=== PATIENT | male | born 1970 | race Caucasian/White ===

== ENCOUNTER 2017-10-22 02:28 | Emergency (ER) | payer MEDICAID ==
[~2017-10-22] VITALS: Ht 175.3 cm; Wt 75.0 kg
[~2017-10-22 02:28] MED LIST: ALPR-624 PO; FLUO20CA39 PO; HYDR-3965 PO; LANTUS SUBCUT; LISI40TA4 PO; TRAZ-143 PO
[2017-10-22] MEDS ORDERED: morphine 2 MG/ML inj. syringe IV ONE (02:35)
[2017-10-22] MEDS ORDERED: ondansetron/PF 4mg/2ml inj IV ONE (02:35)
[2017-10-22] MEDS ORDERED: HYDROCODONE (02:37)
[2017-10-22] MEDS ORDERED: [UNRECOGNIZED DRUG - OTHER] (02:37)
[2017-10-22] MEDS ORDERED: [UNRECOGNIZED DRUG - SUPPLY] (02:37)
[2017-10-22] MEDS ORDERED: [UNRECOGNIZED DRUG - OTHER] (02:37)
[2017-10-22] MEDS ORDERED: LISINOPRIL 40 MG (02:37)
[2017-10-22] MEDS ORDERED: EASY TOUCH (02:37)
[2017-10-22] MEDS ORDERED: BASAGLAR (02:37)
[2017-10-22] MEDS ORDERED: APAP (02:37)
[2017-10-22] MEDS: nitroGLYCERIN 0.4mg SUBLingual tab SL PRN ×3 (02:45→05:23)
[2017-10-22 02:47] LABS: BASOPHILS # (AUTO) 0.1 X10'3 (0-0.2); BASOPHILS % (AUTO) 1.1 % (0-1); EOSINOPHILS # (AUTO) 0.2 X10'3 (0-0.9); EOSINOPHILS % (AUTO) 2.9 % (0-6); HEMOGLOBIN 13.1 g/dl (14.0-17.9); LYMPHOCYTES # (AUTO) 1.9 X10'3 (1.1-4.8); LYMPHOCYTES % (AUTO) 37.4 % (21-51); MEAN CORPUSCULAR HGB CONC 34.6 % (33.0-36.5); MEAN CORPUSCULAR VOLUME 92.5 FL (78-98); MEAN PLATELET VOLUME 7.9 FL (7.4-10.4); MONOCYTES # (AUTO) 0.4 X10'3 (0-0.9); MONOCYTES % (AUTO) 8.7 % (2-12); NEUTROPHILS # (AUTO) 2.6 X10'3 (1.8-7.7); NEUTROPHILS % (AUTO) 49.9 % (42-75); PLATELET COUNT 143 X10'3 (140-440); RED BLOOD COUNT 4.11 X10'6 (4.70-6.10); WHITE BLOOD COUNT 5.1 X10'3 (4.5-11.0)
[2017-10-22 03:00] LABS: D-DIMER 0.31 MG/L FEU (0-0.50)
[2017-10-22] MEDS ORDERED: normal saline 1000ML IV soln IVB ONE (03:05)
[2017-10-22 03:09] LABS: ALANINE AMINOTRANSFERASE 27 U/L (12-78); ALBUMIN 3.4 G/DL (3.4-5.0); ALBUMIN/GLOBULIN RATIO 0.9 (1.1-1.5); ALKALINE PHOSPHATASE 131 IU/L (46-116); ANION GAP 8 (8-16); ASPARTATE AMINO TRANSFERASE 22 U/L (10-37); BILIRUBIN,TOTAL 0.4 MG/DL (0.1-1.0); BLOOD UREA NITROGEN 10 MG/DL (7-18); BUN/CREATININE RATIO 13.9 (5.4-32.0); CALCIUM 8.4 MG/DL (8.5-10.1); CHLORIDE 102 MMOL/L (99-107); CREATININE 0.72 MG/DL (0.60-1.10); GLUCOSE 285 MG/DL (70-104); MAGNESIUM 1.6 MG/DL (1.5-2.4); POTASSIUM 4.2 MMOL/L (3.5-5.1); SODIUM 138 MMOL/L (135-145); TOTAL CARBON DIOXIDE 28.1 MMOL/L (24-32); TOTAL PROTEIN 7.1 G/DL (6.4-8.2); eGFR > 90 ML/MIN
[2017-10-22 03:46] LABS: ETHANOL 0.143 GM/DL (0.0-0.010)
[2017-10-22 05:42] LABS: URINE AMPHETAMINE SCREEN NEGATIVE (Neg); URINE BARBITUATE SCREEN NEGATIVE (Neg); URINE BENZODIAZEPINES SCREEN NEGATIVE (Neg); URINE CANNABINOID SCREEN NEGATIVE (Neg); URINE COCAINE SCREEN NEGATIVE (Neg); URINE METHADONE SCREEN NEGATIVE (Neg); URINE OPIATE SCREEN POSITIVE (Neg); URINE PHENCYCLIDINE SCREEN NEGATIVE (Neg)
[2017-10-22 06:24] VITALS: BP 120/71
== END 2017-10-22 06:27 | disposition home or self-care (01) ==
LOC: ER 02:28
DX: E10.65 Type 1 diabetes mellitus with hyperglycemia (principal); I10 Essential (primary) hypertension; D64.9 Anemia, unspecified; F10.129 Alcohol abuse with intoxication, unspecified; E10.42 Type 1 diabetes mellitus with diabetic polyneuropathy; I25.10 Atherosclerotic heart disease of native coronary artery without angina pectoris; E78.00 Pure hypercholesterolemia, unspecified; I25.2 Old myocardial infarction; F17.210 Nicotine dependence, cigarettes, uncomplicated; Z79.4 Long term (current) use of insulin; Z59.0 Homelessness; Z56.0 Unemployment, unspecified; Z60.2 Problems related to living alone; Z98.890 Other specified postprocedural states; Z79.899 Other long term (current) drug therapy
CPT/HCPCS: 36415; 71045; 80053; 80305; 80320; 83735; 83880; 84484; 85025; 85379; 93005; 96361; 96374; 96375; 99285; J2270; J2405; J7030

== ENCOUNTER 2017-12-20 03:20 | Emergency (ER) | payer MEDICAID ==
[~2017-12-20] VITALS: Ht 170.2 cm; Wt 75.0 kg
[~2017-12-20 03:20] MED LIST changes: +APAP; +BASAGLAR; +EASY TOUCH; +HYDROCODONE; +LISINOPRIL 40 MG; +[UNRECOGNIZED DRUG - OTHER]; +[UNRECOGNIZED DRUG - OTHER]; +[UNRECOGNIZED DRUG - SUPPLY]
[2017-12-20 04:28] LABS: BASOPHILS % (AUTO) 0.4 % (0-1); EOSINOPHILS # (AUTO) 0.1 X10'3 (0-0.9); EOSINOPHILS % (AUTO) 1.6 % (0-6); HEMATOCRIT 42.2 % (42.0-52.0); HEMOGLOBIN 14.9 g/dl (14.0-17.9); LYMPHOCYTES % (AUTO) 38.9 % (21-51); MEAN CORPUSCULAR HEMOGLOBIN 31.7 PG (27.0-31.0); MEAN CORPUSCULAR HGB CONC 35.2 % (33.0-36.5); MEAN PLATELET VOLUME 8.1 FL (7.4-10.4); MONOCYTES # (AUTO) 0.5 X10'3 (0-0.9); NEUTROPHILS # (AUTO) 2.6 X10'3 (1.8-7.7); NEUTROPHILS % (AUTO) 50.1 % (42-75); PLATELET COUNT 102 X10'3 (140-440); RED BLOOD COUNT 4.69 X10'6 (4.70-6.10); RED CELL DISTRIBUTION WIDTH 13.1 % (11.5-14.5); WHITE BLOOD COUNT 5.1 X10'3 (4.5-11.0)
[2017-12-20 04:39] LABS: CLARITY,URINE CLEAR (Clear); COLOR,URINE YELLOW (Yellow); GLUCOSE, URINE 500 mg/dl (Neg); KETONES,URINE NEGATIVE (Neg); LEUKOCYTE ESTERASE ,URINE NEGATIVE (Neg); NITRITES, URINE NEGATIVE (Neg); OCCULT BLOOD,URINE TRACE-INTACT (Neg); PH,URINE 5.5 (4.8-8.0); PROTEIN,URINE NEGATIVE (Neg)
[2017-12-20 04:42] LABS: URINE AMPHETAMINE SCREEN NEGATIVE (Neg); URINE BARBITUATE SCREEN NEGATIVE (Neg); URINE BENZODIAZEPINES SCREEN NEGATIVE (Neg); URINE CANNABINOID SCREEN NEGATIVE (Neg); URINE COCAINE SCREEN NEGATIVE (Neg); URINE METHADONE SCREEN NEGATIVE (Neg); URINE OPIATE SCREEN NEGATIVE (Neg); URINE PHENCYCLIDINE SCREEN NEGATIVE (Neg)
[2017-12-20 04:50] LABS: ALANINE AMINOTRANSFERASE 51 U/L (12-78); ALBUMIN 3.7 G/DL (3.4-5.0); ALBUMIN/GLOBULIN RATIO 0.9 (1.1-1.5); ALKALINE PHOSPHATASE 119 IU/L (46-116); ANION GAP 12 (8-16); ASPARTATE AMINO TRANSFERASE 60 U/L (10-37); BILIRUBIN,TOTAL 0.5 MG/DL (0.1-1.0); BLOOD UREA NITROGEN 10 MG/DL (7-18); BUN/CREATININE RATIO 16.4 (5.4-32.0); CALCIUM 8.8 MG/DL (8.5-10.1); CHLORIDE 105 MMOL/L (99-107); CREATININE 0.61 MG/DL (0.60-1.10); ETHANOL 0.268 GM/DL (0.0-0.010); GLUCOSE 179 MG/DL (70-104); LIPASE 287 U/L (73-393); POTASSIUM 4.1 MMOL/L (3.5-5.1); SODIUM 145 MMOL/L (135-145); TOTAL CARBON DIOXIDE 27.6 MMOL/L (24-32); TOTAL PROTEIN 7.7 G/DL (6.4-8.2); eGFR > 90 ML/MIN
[2017-12-20 05:01] LABS: UA COLLECTION TYPE CLN CATCH MIDSTREAM
[2017-12-20 05:13] LABS: BACTERIA,URINE NONE SEEN /HPF (Neg); MUCUS STRANDS NONE SEEN /LPF (Neg); RBC,URINE 0-2 /HPF (0-2); SQUAMOUS EPITHELIAL CELL,UR FEW /LPF (FEW); WBC,URINE NONE SEEN /HPF (0-4)
[2017-12-20] MEDS ORDERED: HYDROcodone/acetaminophen 5mg/325mg tablet PO PRN (08:20)
[2017-12-20 08:22] VITALS: BP 118/70
[2017-12-20] MEDS ORDERED: lisinopril 20mg tablet PO ONE (08:25)
[2017-12-20] MEDS ORDERED: FLUoxetine 20mg capsule PO ONE (08:25)
[2017-12-20] MEDS ORDERED: LORazepam 1 MG tablet PO ONE (08:30)
[2017-12-20] MEDS ORDERED: ondansetron 4mg rapidly disintigrating tab PO ONE (08:30)
[2017-12-20] MEDS ORDERED: ketorolac trometh inj. 60 MG/2 ML VIAL IM ONE (12:35)
[2017-12-20] MEDS ORDERED: sucralfate 1gm/10ml UD suspension PO STA (15:42)
[2017-12-20] MEDS ORDERED: mag hydrox/Alum hydrox/simeth 30ml oral suspension PO ONE (15:45)
[2017-12-20] MEDS ORDERED: LIDOcaine Viscous 15ml cup PO ONE (15:45)
[2017-12-20] MEDS ORDERED: insulin glargine (Lantus) pen - multi-dose SQ SCH (21:00)
[2017-12-20] MEDS ORDERED: traZODone 50mg tablet PO SCH (21:00)
[2017-12-21] MEDS ORDERED: FLUoxetine 20mg capsule PO SCH (08:00)
[2017-12-21] MEDS ORDERED: lisinopril 20mg tablet PO SCH (08:00)
== END 2017-12-20 16:04 | disposition home or self-care (01) ==
LOC: ER 03:20
DX: F41.9 Anxiety disorder, unspecified (principal); F32.9 Major depressive disorder, single episode, unspecified; R45.851 Suicidal ideations; F10.129 Alcohol abuse with intoxication, unspecified; E11.42 Type 2 diabetes mellitus with diabetic polyneuropathy; I25.10 Atherosclerotic heart disease of native coronary artery without angina pectoris; E78.00 Pure hypercholesterolemia, unspecified; I10 Essential (primary) hypertension; I25.2 Old myocardial infarction; Z98.890 Other specified postprocedural states; Z60.2 Problems related to living alone; Z59.0 Homelessness; Z56.0 Unemployment, unspecified; Z79.4 Long term (current) use of insulin; Z79.899 Other long term (current) drug therapy; Y90.0 Blood alcohol level of less than 20 mg/100 ml
CPT/HCPCS: 36415; 80053; 80305; 80320; 81001; 82948; 83690; 84443; 85025; 96372; 99284; J1885; J1815

== ENCOUNTER 2018-01-06 07:00 | Inpatient (IN) | payer MEDICAID ==
[~2018-01-06] VITALS: Ht 175.3 cm; Wt 73.0 kg
[~2018-01-06 07:00] MED LIST changes: -APAP; -BASAGLAR; -EASY TOUCH; -HYDROCODONE; -LISINOPRIL 40 MG; -[UNRECOGNIZED DRUG - OTHER]; -[UNRECOGNIZED DRUG - OTHER]; -[UNRECOGNIZED DRUG - SUPPLY]
[2018-01-06] MEDS ORDERED: ondansetron/PF 4mg/2ml inj IV ONE (07:10)
[2018-01-06] MEDS ORDERED: normal saline 1000ML IV soln IVB ONE ×2 (07:10→07:20)
[2018-01-06 07:18] LABS: BASOPHILS % (AUTO) 0.2 % (0-1); EOSINOPHILS % (AUTO) 0 % (0-6); HEMATOCRIT 37.8 % (42.0-52.0); HEMOGLOBIN 13.1 g/dl (14.0-17.9); LYMPHOCYTES # (AUTO) 0.4 X10'3 (1.1-4.8); LYMPHOCYTES % (AUTO) 4.7 % (21-51); MEAN CORPUSCULAR HEMOGLOBIN 31.4 PG (27.0-31.0); MEAN CORPUSCULAR HGB CONC 34.8 % (33.0-36.5); MEAN CORPUSCULAR VOLUME 90.2 FL (78-98); MEAN PLATELET VOLUME 7.8 FL (7.4-10.4); MONOCYTES # (AUTO) 0.7 X10'3 (0-0.9); MONOCYTES % (AUTO) 8.1 % (2-12); PLATELET COUNT 222 X10'3 (140-440); RED BLOOD COUNT 4.19 X10'6 (4.70-6.10); RED CELL DISTRIBUTION WIDTH 13.6 % (11.5-14.5); WHITE BLOOD COUNT 9.3 X10'3 (4.5-11.0)
[2018-01-06 07:27] LABS: CLARITY,URINE CLEAR (Clear); COLOR,URINE AMBER (Yellow); GLUCOSE, URINE >=1000 mg/dl (Neg); KETONES,URINE 15 mg/dl (Neg); LEUKOCYTE ESTERASE ,URINE NEGATIVE (Neg); NITRITES, URINE NEGATIVE (Neg); OCCULT BLOOD,URINE NEGATIVE (Neg); PROTEIN,URINE TRACE mg/dl (Neg); UROBILINOGEN,URINE >=8.0 E.U/dL (0.2-1.0)
[2018-01-06 07:30] LABS: UA COLLECTION TYPE CLN CATCH MIDSTREAM
[2018-01-06 07:33] LABS: ALANINE AMINOTRANSFERASE 77 U/L (12-78); ALBUMIN 2.5 G/DL (3.4-5.0); ALBUMIN/GLOBULIN RATIO 0.5 (1.1-1.5); ALKALINE PHOSPHATASE 131 IU/L (46-116); ANION GAP 7 (8-16); ASPARTATE AMINO TRANSFERASE 52 U/L (10-37); BILIRUBIN,TOTAL 1.2 MG/DL (0.1-1.0); BLOOD UREA NITROGEN 11 MG/DL (7-18); BUN/CREATININE RATIO 12.5 (5.4-32.0); CALCIUM 8.4 MG/DL (8.5-10.1); CHLORIDE 84 MMOL/L (99-107); CREATININE 0.88 MG/DL (0.60-1.10); ETHANOL < 0.010 GM/DL (0.0-0.010); GLUCOSE 277 MG/DL (70-104); LIPASE 333 U/L (73-393); POTASSIUM 4.5 MMOL/L (3.5-5.1); TOTAL CARBON DIOXIDE 29.3 MMOL/L (24-32); TOTAL PROTEIN 7.5 G/DL (6.4-8.2); eGFR > 90 ML/MIN
[2018-01-06 07:34] LABS: BACTERIA,URINE NONE SEEN /HPF (Neg); MUCUS STRANDS NONE SEEN /LPF (Neg); RBC,URINE 0-2 /HPF (0-2); SQUAMOUS EPITHELIAL CELL,UR NONE SEEN /LPF (FEW); WBC,URINE NONE SEEN /HPF (0-4)
[2018-01-06 07:35] LABS: SODIUM 120 MMOL/L (135-145)
[2018-01-06] MEDS: MORPHINE 2MG in 2ml NS syringe IV PRN ×2 (07:38→12:30)
[2018-01-06 08:27] LABS: TOTAL CELLS COUNTED 100
[2018-01-06 08:29] LABS: PLATELET ESTIMATE NORMAL
[2018-01-06 08:46] LABS: URINE AMPHETAMINE SCREEN POSITIVE (Neg); URINE BARBITUATE SCREEN NEGATIVE (Neg); URINE BENZODIAZEPINES SCREEN POSITIVE (Neg); URINE CANNABINOID SCREEN NEGATIVE (Neg); URINE COCAINE SCREEN NEGATIVE (Neg); URINE METHADONE SCREEN NEGATIVE (Neg); URINE OPIATE SCREEN NEGATIVE (Neg); URINE PHENCYCLIDINE SCREEN NEGATIVE (Neg)
[2018-01-06] MEDS ORDERED: piperacillin/tazo 3.375gm/50ml 50 ML IV ONE (09:20)
[2018-01-06] MEDS ORDERED: normal saline 1000ml 1,000 ML IV ONE (12:10)
[2018-01-06] MEDS ORDERED: normal saline 1000ml 1,000 ML IV SCH (12:15)
[2018-01-06] MEDS ORDERED: mag hydrox/Alum hydrox/simeth 30ml oral suspension PO PRN (12:30)
[2018-01-06] MEDS ORDERED: dextrose 50%-water 50ml dispensing syringe IV PRN ×3 (12:30)
[2018-01-06] MEDS ORDERED: haloperidol lactate 5mg/ml inj IM PRN (12:30)
[2018-01-06] MEDS ORDERED: potassium Cl 20 mEq SR tablet PO PRN ×2 (12:30)
[2018-01-06] MEDS ORDERED: magnesium Cl slow-release 64mg tablet PO PRN (12:30)
[2018-01-06] MEDS ORDERED: magnesium 4gm in 100ml NS 100 ML IV PRN (12:30)
[2018-01-06] MEDS ORDERED: haloperidol 5mg tablet PO PRN (12:30)
[2018-01-06] MEDS ORDERED: ondansetron/PF 4mg/2ml inj IV PRN (12:30)
[2018-01-06] MEDS ORDERED: acetaminophen 325mg tablet PO PRN (12:30)
[2018-01-06] MEDS ORDERED: morphine 4 MG/ML inj SYRINge IV PRN (12:30)
[2018-01-06] MEDS ORDERED: thiamine 100mg/ml 2ml inj. IV ONE (12:30)
[2018-01-06] MEDS ORDERED: magnesium hydroxide 30ml (MOM) UD suspension PO PRN (12:30)
[2018-01-06] MEDS ORDERED: potassium Cl 40MEQ/NS 500ml 500 ML IV PRN ×2 (12:30)
[2018-01-06] MEDS ORDERED: glucagon, human recombinant 1mg kit SUBCUT PRN (12:30)
[2018-01-06] MEDS ORDERED: HYDROcodone/acetaminophen 5mg/325mg tablet PO PRN (12:30)
[2018-01-06] MEDS ORDERED: dextrose ORAL solution 15 GM/59 ML bottle PO PRN ×2 (12:30)
[2018-01-06] MEDS ORDERED: magnesium 2GM in 50ml NS 50 ML IV PRN (12:30)
[2018-01-06] MEDS ORDERED: MESSAGE TO PHARMACY PO ONE (12:30)
[2018-01-06 12:35] LABS: ALANINE AMINOTRANSFERASE 64 U/L (12-78); ALBUMIN 2.2 G/DL (3.4-5.0); ALBUMIN/GLOBULIN RATIO 0.5 (1.1-1.5); ALKALINE PHOSPHATASE 115 IU/L (46-116); ANION GAP 6 (8-16); ASPARTATE AMINO TRANSFERASE 44 U/L (10-37); BILIRUBIN,TOTAL 1.1 MG/DL (0.1-1.0); BLOOD UREA NITROGEN 12 MG/DL (7-18); BUN/CREATININE RATIO 16.4 (5.4-32.0); CALCIUM 8.3 MG/DL (8.5-10.1); CHLORIDE 90 MMOL/L (99-107); CREATININE 0.73 MG/DL (0.60-1.10); GLUCOSE 260 MG/DL (70-104); POTASSIUM 4.4 MMOL/L (3.5-5.1); SODIUM 125 MMOL/L (135-145); TOTAL CARBON DIOXIDE 28.7 MMOL/L (24-32); TOTAL PROTEIN 6.8 G/DL (6.4-8.2); eGFR > 90 ML/MIN
[2018-01-06 13:07] LABS: CRP-CARDIAC RISK > 90.000 MG/L
[2018-01-06] MEDS: normal saline 1000ml 1,000 ML IV SCH ×2 (13:13→23:21)
[2018-01-06 13:24] LABS: HEMOGLOBIN A1C 8.3 % (4.5-6.2)
[2018-01-06] MEDS: LORazepam 2 mg/ml vial IV PRN (13:37)
[2018-01-06 13:47] LABS: OSMOLALITY 269 MOSM/K (280-300)
[2018-01-06 14:49] VITALS: BP 111/70
[2018-01-06 18:30] VITALS: BP 129/65
[2018-01-06] MEDS: HYDROcodone/acetaminophen 10/325mg tab PO PRN (18:45)
[2018-01-06 18:53] LABS: ANION GAP 6 (8-16); BLOOD UREA NITROGEN 13 MG/DL (7-18); BUN/CREATININE RATIO 16.9 (5.4-32.0); CALCIUM 7.9 MG/DL (8.5-10.1); CHLORIDE 92 MMOL/L (99-107); CREATININE 0.77 MG/DL (0.60-1.10); GLUCOSE 330 MG/DL (70-104); POTASSIUM 4.3 MMOL/L (3.5-5.1); SODIUM 124 MMOL/L (135-145); TOTAL CARBON DIOXIDE 25.6 MMOL/L (24-32); eGFR > 90 ML/MIN
[2018-01-06] MEDS: insulin Lispro (HumaLOG) vial - multi-dose SQ SCH ×2 (19:35→21:33)
[2018-01-06] MEDS: heparin, porcine 5000 units/ml vial SQ SCH (20:41)
[2018-01-06] MEDS ORDERED: temazepam 15mg capsule PO PRN (21:00)
[2018-01-06] MEDS: insulin glargine (Lantus) pen - multi-dose SQ SCH (21:34)
[2018-01-07] VITALS: BP 122/72
[2018-01-07] MEDS: HYDROcodone/acetaminophen 10/325mg tab PO PRN ×3 (01:03→14:39)
[2018-01-07 01:20] LABS: ANION GAP 6 (8-16); BLOOD UREA NITROGEN 13 MG/DL (7-18); BUN/CREATININE RATIO 20.6 (5.4-32.0); CALCIUM 8.1 MG/DL (8.5-10.1); CHLORIDE 94 MMOL/L (99-107); CREATININE 0.63 MG/DL (0.60-1.10); GLUCOSE 254 MG/DL (70-104); POTASSIUM 4.2 MMOL/L (3.5-5.1); SODIUM 126 MMOL/L (135-145); TOTAL CARBON DIOXIDE 25.8 MMOL/L (24-32); eGFR > 90 ML/MIN
[2018-01-07 05:52] LABS: BASOPHILS % (AUTO) 0.4 % (0-1); EOSINOPHILS % (AUTO) 1.1 % (0-6); HEMOGLOBIN 10.8 g/dl (14.0-17.9); LYMPHOCYTES # (AUTO) 0.6 X10'3 (1.1-4.8); LYMPHOCYTES % (AUTO) 13.2 % (21-51); MEAN CORPUSCULAR HEMOGLOBIN 30.7 PG (27.0-31.0); MEAN CORPUSCULAR HGB CONC 33.8 % (33.0-36.5); MEAN CORPUSCULAR VOLUME 90.7 FL (78-98); MEAN PLATELET VOLUME 7.9 FL (7.4-10.4); MONOCYTES # (AUTO) 0.6 X10'3 (0-0.9); NEUTROPHILS # (AUTO) 2.9 X10'3 (1.8-7.7); NEUTROPHILS % (AUTO) 70.3 % (42-75); PLATELET COUNT 183 X10'3 (140-440); RED BLOOD COUNT 3.53 X10'6 (4.70-6.10); RED CELL DISTRIBUTION WIDTH 13.9 % (11.5-14.5); WHITE BLOOD COUNT 4.2 X10'3 (4.5-11.0)
[2018-01-07 06:07] LABS: ALANINE AMINOTRANSFERASE 51 U/L (12-78); ALBUMIN/GLOBULIN RATIO 0.5 (1.1-1.5); ALKALINE PHOSPHATASE 118 IU/L (46-116); ANION GAP 5 (8-16); ASPARTATE AMINO TRANSFERASE 31 U/L (10-37); BILIRUBIN,TOTAL 0.6 MG/DL (0.1-1.0); BLOOD UREA NITROGEN 11 MG/DL (7-18); BUN/CREATININE RATIO 17.2 (5.4-32.0); CHLORIDE 95 MMOL/L (99-107); CREATININE 0.64 MG/DL (0.60-1.10); GLUCOSE 237 MG/DL (70-104); MAGNESIUM 1.9 MG/DL (1.5-2.4); POTASSIUM 4.1 MMOL/L (3.5-5.1); SODIUM 127 MMOL/L (135-145); TOTAL CARBON DIOXIDE 26.9 MMOL/L (24-32); TOTAL PROTEIN 6.2 G/DL (6.4-8.2); eGFR > 90 ML/MIN
[2018-01-07] MEDS: K and/or MAG REPLACEMENT MC SCH (06:52)
[2018-01-07 07:00] VITALS: BP 124/77
[2018-01-07] MEDS: normal saline 1000ml 1,000 ML IV SCH ×3 (08:28→21:56)
[2018-01-07] MEDS: thiamine inj. 100 MG, MVI, adult No.4 with vit. K 10 ML in dextrose 5% water 500ml 489 ML IV SCH ×3 (08:47)
[2018-01-07] MEDS: heparin, porcine 5000 units/ml vial SQ SCH ×2 (08:48→20:13)
[2018-01-07] MEDS: LORazepam 2 mg/ml vial IV PRN ×2 (08:56→19:27)
[2018-01-07] MEDS: insulin Lispro (HumaLOG) vial - multi-dose SQ SCH ×3 (09:00→19:48)
[2018-01-07 11:00] VITALS: BP 117/64
[2018-01-07] MEDS ORDERED: hydrALAZINE 20mg/ml inj. IV PRN (12:25)
[2018-01-07 12:32] LABS: ANION GAP 7 (8-16); BLOOD UREA NITROGEN 11 MG/DL (7-18); CALCIUM 8.7 MG/DL (8.5-10.1); CHLORIDE 96 MMOL/L (99-107); CREATININE 0.55 MG/DL (0.60-1.10); GLUCOSE 201 MG/DL (70-104); POTASSIUM 4.1 MMOL/L (3.5-5.1); SODIUM 128 MMOL/L (135-145); TOTAL CARBON DIOXIDE 25.2 MMOL/L (24-32); eGFR > 90 ML/MIN
[2018-01-07 13:37] LABS: ALBUMIN 2.1 G/DL (3.4-5.0); ANION GAP 7 (8-16); BLOOD UREA NITROGEN 10 MG/DL (7-18); BUN/CREATININE RATIO 17.2 (5.4-32.0); CALCIUM 8.7 MG/DL (8.5-10.1); CHLORIDE 95 MMOL/L (99-107); CREATININE 0.58 MG/DL (0.60-1.10); GLUCOSE 206 MG/DL (70-104); POTASSIUM 4.5 MMOL/L (3.5-5.1); SODIUM 129 MMOL/L (135-145); TOTAL CARBON DIOXIDE 27.1 MMOL/L (24-32); eGFR > 90 ML/MIN
[2018-01-07 18:40] VITALS: BP 126/72
[2018-01-07] MEDS ORDERED: normal saline 1000ml 1,000 ML IV ONE (19:00)
[2018-01-07] MEDS ORDERED: mupirocin 2% nasal ointment 1gm UD NS SCH (20:00)
[2018-01-07] MEDS: piperacillin/tazo 3.375gm/50ml 50 ML IV SCH (20:12)
[2018-01-07] MEDS: insulin glargine (Lantus) pen - multi-dose SQ SCH (22:18)
[2018-01-08] VITALS: BP 126/75
[2018-01-08] MEDS: HYDROcodone/acetaminophen 10/325mg tab PO PRN (00:34)
[2018-01-08 01:13] LABS: ANION GAP 6 (8-16); BLOOD UREA NITROGEN 11 MG/DL (7-18); BUN/CREATININE RATIO 16.2 (5.4-32.0); CALCIUM 8.4 MG/DL (8.5-10.1); CHLORIDE 95 MMOL/L (99-107); CREATININE 0.68 MG/DL (0.60-1.10); GLUCOSE 155 MG/DL (70-104); POTASSIUM 4.1 MMOL/L (3.5-5.1); SODIUM 129 MMOL/L (135-145); TOTAL CARBON DIOXIDE 27.8 MMOL/L (24-32); eGFR > 90 ML/MIN
[2018-01-08] MEDS: piperacillin/tazo 3.375gm/50ml 50 ML IV SCH ×3 (02:14→13:23)
[2018-01-08 05:00] VITALS: BP 131/76
[2018-01-08 06:01] LABS: BASOPHILS % (AUTO) 0.8 % (0-1); EOSINOPHILS % (AUTO) 1.3 % (0-6); HEMATOCRIT 29.6 % (42.0-52.0); HEMOGLOBIN 10.4 g/dl (14.0-17.9); LYMPHOCYTES # (AUTO) 0.7 X10'3 (1.1-4.8); LYMPHOCYTES % (AUTO) 17.4 % (21-51); MEAN CORPUSCULAR HEMOGLOBIN 31.1 PG (27.0-31.0); MEAN CORPUSCULAR VOLUME 88.9 FL (78-98); MONOCYTES # (AUTO) 0.6 X10'3 (0-0.9); NEUTROPHILS # (AUTO) 2.5 X10'3 (1.8-7.7); NEUTROPHILS % (AUTO) 65.5 % (42-75); PLATELET COUNT 160 X10'3 (140-440); RED BLOOD COUNT 3.33 X10'6 (4.70-6.10); RED CELL DISTRIBUTION WIDTH 13.8 % (11.5-14.5); WHITE BLOOD COUNT 3.9 X10'3 (4.5-11.0)
[2018-01-08 06:18] LABS: ALANINE AMINOTRANSFERASE 46 U/L (12-78); ALBUMIN 1.8 G/DL (3.4-5.0); ALBUMIN/GLOBULIN RATIO 0.4 (1.1-1.5); ALKALINE PHOSPHATASE 137 IU/L (46-116); ANION GAP 6 (8-16); ASPARTATE AMINO TRANSFERASE 34 U/L (10-37); BILIRUBIN,TOTAL 0.5 MG/DL (0.1-1.0); BLOOD UREA NITROGEN 11 MG/DL (7-18); BUN/CREATININE RATIO 16.9 (5.4-32.0); CALCIUM 8.4 MG/DL (8.5-10.1); CHLORIDE 98 MMOL/L (99-107); CREATININE 0.65 MG/DL (0.60-1.10); GLUCOSE 216 MG/DL (70-104); MAGNESIUM 1.6 MG/DL (1.5-2.4); POTASSIUM 3.9 MMOL/L (3.5-5.1); SODIUM 131 MMOL/L (135-145); TOTAL CARBON DIOXIDE 26.6 MMOL/L (24-32); eGFR > 90 ML/MIN
[2018-01-08] MEDS: MORPHINE 2MG in 2ml NS syringe IV PRN (07:39)
[2018-01-08] MEDS: heparin, porcine 5000 units/ml vial SQ SCH ×2 (07:40→19:52)
[2018-01-08] MEDS: thiamine inj. 100 MG, MVI, adult No.4 with vit. K 10 ML in dextrose 5% water 500ml 489 ML IV SCH ×3 (07:48)
[2018-01-08] MEDS ORDERED: ALPRAZolam 0.5mg tablet PO SCH (08:00)
[2018-01-08] MEDS: K and/or MAG REPLACEMENT MC SCH (08:00)
[2018-01-08] MEDS: insulin Lispro (HumaLOG) vial - multi-dose SQ SCH ×2 (10:37→20:30)
[2018-01-08 12:00] VITALS: BP 132/77
[2018-01-08 12:01] VITALS: BP 132/71
[2018-01-08] MEDS ORDERED: LORazepam 2 mg/ml vial IV PRN (12:30)
[2018-01-08] MEDS ORDERED: LORazepam 1 MG tablet PO PRN (12:30)
[2018-01-08 12:36] LABS: ALBUMIN 1.9 G/DL (3.4-5.0); ANION GAP 5 (8-16); BLOOD UREA NITROGEN 9 MG/DL (7-18); BUN/CREATININE RATIO 12.7 (5.4-32.0); CALCIUM 8.6 MG/DL (8.5-10.1); CHLORIDE 95 MMOL/L (99-107); CREATININE 0.71 MG/DL (0.60-1.10); GLUCOSE 195 MG/DL (70-104); POTASSIUM 3.9 MMOL/L (3.5-5.1); SODIUM 128 MMOL/L (135-145); TOTAL CARBON DIOXIDE 27.7 MMOL/L (24-32); eGFR > 90 ML/MIN
[2018-01-08] MEDS: normal saline 1000ml 1,000 ML IV SCH (14:28)
[2018-01-08 17:13] LABS: TOTAL CELLS COUNTED 100
[2018-01-08 17:14] LABS: SMUDGE CELLS FEW
[2018-01-08 17:15] LABS: ALBUMIN 1.9 G/DL (3.4-5.0); ANION GAP 8 (8-16); BLOOD UREA NITROGEN 8 MG/DL (7-18); BUN/CREATININE RATIO 13.8 (5.4-32.0); CALCIUM 8.5 MG/DL (8.5-10.1); CHLORIDE 94 MMOL/L (99-107); CREATININE 0.58 MG/DL (0.60-1.10); GLUCOSE 170 MG/DL (70-104); POTASSIUM 4.2 MMOL/L (3.5-5.1); SODIUM 127 MMOL/L (135-145); TOTAL CARBON DIOXIDE 24.8 MMOL/L (24-32); eGFR > 90 ML/MIN
[2018-01-08 17:20] LABS: PLATELET ESTIMATE NORMAL
[2018-01-08 18:00] VITALS: BP 130/76
[2018-01-08] MEDS: morphine 4 MG/ML inj SYRINge IV PRN ×2 (18:32→23:05)
[2018-01-08] MEDS: insulin glargine (Lantus) pen - multi-dose SQ SCH (20:31)
[2018-01-08] MEDS ORDERED: LORazepam 0.5 MG tablet PO PRN (22:20)
[2018-01-09] VITALS: BP 139/76
[2018-01-09] MEDS: normal saline 1000ml 1,000 ML IV SCH (01:01)
[2018-01-09 01:25] LABS: ALBUMIN 1.9 G/DL (3.4-5.0); ANION GAP 5 (8-16); BLOOD UREA NITROGEN 9 MG/DL (7-18); CALCIUM 8.1 MG/DL (8.5-10.1); CHLORIDE 94 MMOL/L (99-107); GLUCOSE 201 MG/DL (70-104); POTASSIUM 3.8 MMOL/L (3.5-5.1); SODIUM 127 MMOL/L (135-145); TOTAL CARBON DIOXIDE 28.4 MMOL/L (24-32); eGFR > 90 ML/MIN
[2018-01-09] MEDS: HYDROcodone/acetaminophen 10/325mg tab PO PRN ×2 (03:50→10:18)
[2018-01-09 05:59] LABS: BASOPHILS % (AUTO) 0.5 % (0-1); EOSINOPHILS # (AUTO) 0.2 X10'3 (0-0.9); EOSINOPHILS % (AUTO) 3.1 % (0-6); HEMATOCRIT 32.4 % (42.0-52.0); HEMOGLOBIN 10.9 g/dl (14.0-17.9); LYMPHOCYTES # (AUTO) 0.7 X10'3 (1.1-4.8); LYMPHOCYTES % (AUTO) 12.5 % (21-51); MEAN CORPUSCULAR HEMOGLOBIN 30.4 PG (27.0-31.0); MEAN CORPUSCULAR HGB CONC 33.7 % (33.0-36.5); MEAN CORPUSCULAR VOLUME 90.3 FL (78-98); MEAN PLATELET VOLUME 8.1 FL (7.4-10.4); MONOCYTES # (AUTO) 0.6 X10'3 (0-0.9); MONOCYTES % (AUTO) 10.6 % (2-12); NEUTROPHILS # (AUTO) 4.3 X10'3 (1.8-7.7); NEUTROPHILS % (AUTO) 73.3 % (42-75); PLATELET COUNT 177 X10'3 (140-440); RED BLOOD COUNT 3.59 X10'6 (4.70-6.10); WHITE BLOOD COUNT 5.9 X10'3 (4.5-11.0)
[2018-01-09 06:10] LABS: ALANINE AMINOTRANSFERASE 40 U/L (12-78); ALBUMIN 1.9 G/DL (3.4-5.0); ALBUMIN/GLOBULIN RATIO 0.4 (1.1-1.5); ALKALINE PHOSPHATASE 133 IU/L (46-116); ANION GAP 6 (8-16); ASPARTATE AMINO TRANSFERASE 27 U/L (10-37); BILIRUBIN,TOTAL 0.5 MG/DL (0.1-1.0); BLOOD UREA NITROGEN 8 MG/DL (7-18); BUN/CREATININE RATIO 15.1 (5.4-32.0); CALCIUM 8.3 MG/DL (8.5-10.1); CHLORIDE 97 MMOL/L (99-107); CREATININE 0.53 MG/DL (0.60-1.10); GLUCOSE 200 MG/DL (70-104); MAGNESIUM 1.7 MG/DL (1.5-2.4); POTASSIUM 3.8 MMOL/L (3.5-5.1); SODIUM 131 MMOL/L (135-145); TOTAL CARBON DIOXIDE 28.2 MMOL/L (24-32); TOTAL PROTEIN 6.4 G/DL (6.4-8.2); eGFR > 90 ML/MIN
[2018-01-09] MEDS: thiamine inj. 100 MG, MVI, adult No.4 with vit. K 10 ML in dextrose 5% water 500ml 489 ML IV SCH ×3 (07:21)
[2018-01-09] MEDS: morphine 4 MG/ML inj SYRINge IV PRN (07:22)
[2018-01-09] MEDS: heparin, porcine 5000 units/ml vial SQ SCH (07:22)
[2018-01-09] MEDS: K and/or MAG REPLACEMENT MC SCH (07:30)
[2018-01-09 07:56] VITALS: BP 137/75
[2018-01-09] MEDS: insulin Lispro (HumaLOG) vial - multi-dose SQ SCH (09:11)
[2018-01-09] MEDS ORDERED: THI100T PO (10:12)
[2018-01-09] MEDS ORDERED: HYDR-569 PO (10:12)
[2018-01-10] MEDS ORDERED: LORazepam 2 mg/ml vial IV PRN (12:30)
[2018-01-10] MEDS ORDERED: LORazepam 1 MG tablet PO PRN (12:30)
== END 2018-01-09 12:05 | disposition home or self-care (01) | DRG 282 ==
LOC: ER 07:01 → ED HOLD 12:28 → MED 3N 14:20
PROVIDERS: ADMIT Family Medicine; ATTEND Internal Medicine
DX: K86.3 Pseudocyst of pancreas (principal); R65.10 Systemic inflammatory response syndrome (SIRS) of non-infectious origin without acute organ dysfunction; E11.42 Type 2 diabetes mellitus with diabetic polyneuropathy; E11.621 Type 2 diabetes mellitus with foot ulcer; E87.1 Hypo-osmolality and hyponatremia; D72.825 Bandemia; I10 Essential (primary) hypertension; F10.10 Alcohol abuse, uncomplicated; E78.00 Pure hypercholesterolemia, unspecified; F17.210 Nicotine dependence, cigarettes, uncomplicated; I25.10 Atherosclerotic heart disease of native coronary artery without angina pectoris; F41.9 Anxiety disorder, unspecified; I25.2 Old myocardial infarction; L97.509 Non-pressure chronic ulcer of other part of unspecified foot with unspecified severity; Z79.4 Long term (current) use of insulin; Z90.49 Acquired absence of other specified parts of digestive tract; Z82.49 Family history of ischemic heart disease and other diseases of the circulatory system; Z83.3 Family history of diabetes mellitus; Z59.0 Homelessness; Z87.11 Personal history of peptic ulcer disease
CPT/HCPCS: 36415; 71045; 73630; 74176; 80048; 80053; 80305; 80320; 81001; 82533; 82948; 83036; 83605; 83690; 83735; 83930; 83935; 84145; 84300; 85007; 85025; 85651; 86140; 87040; 87070; 96361; 96365; 96366; 96375; 99285; J1644; J1815; J2060; J2270; J2274; J2405; J2543; J3411; J7030; J7060

== ENCOUNTER 2018-01-25 03:00 | Emergency (ER) | payer MEDICAID ==
[~2018-01-25] VITALS: Ht 175.3 cm; Wt 75.0 kg
[~2018-01-25 03:00] MED LIST changes: -HYDR-3965 PO; +HYDR-569 PO; +THI100T PO
[2018-01-25] MEDS ORDERED: ondansetron/PF 4mg/2ml inj IV ONE (04:30)
[2018-01-25] MEDS ORDERED: morphine 4 MG/ML inj SYRINge IV PRN (04:30)
[2018-01-25] MEDS ORDERED: normal saline 1000ML IV soln IVB ONE (04:30)
[2018-01-25 05:00] VITALS: BP 112/75
[2018-01-25 05:31] LABS: BASOPHILS # (AUTO) 0.1 X10'3 (0-0.2); BASOPHILS % (AUTO) 1.2 % (0-1); EOSINOPHILS # (AUTO) 0.1 X10'3 (0-0.9); EOSINOPHILS % (AUTO) 2.8 % (0-6); HEMATOCRIT 36.2 % (42.0-52.0); HEMOGLOBIN 12.5 g/dl (14.0-17.9); LYMPHOCYTES # (AUTO) 1.6 X10'3 (1.1-4.8); LYMPHOCYTES % (AUTO) 36.2 % (21-51); MEAN CORPUSCULAR HEMOGLOBIN 31.1 PG (27.0-31.0); MEAN CORPUSCULAR HGB CONC 34.6 % (33.0-36.5); MEAN PLATELET VOLUME 8.5 FL (7.4-10.4); MONOCYTES # (AUTO) 0.4 X10'3 (0-0.9); MONOCYTES % (AUTO) 10.1 % (2-12); NEUTROPHILS # (AUTO) 2.2 X10'3 (1.8-7.7); NEUTROPHILS % (AUTO) 49.7 % (42-75); PLATELET COUNT 155 X10'3 (140-440); RED BLOOD COUNT 4.02 X10'6 (4.70-6.10); RED CELL DISTRIBUTION WIDTH 15.7 % (11.5-14.5); WHITE BLOOD COUNT 4.4 X10'3 (4.5-11.0)
[2018-01-25 05:43] LABS: CLARITY,URINE CLEAR (Clear); COLOR,URINE YELLOW (Yellow); GLUCOSE, URINE NEGATIVE (Neg); KETONES,URINE NEGATIVE (Neg); LEUKOCYTE ESTERASE ,URINE NEGATIVE (Neg); NITRITES, URINE NEGATIVE (Neg); OCCULT BLOOD,URINE NEGATIVE (Neg); PH,URINE 5.5 (4.8-8.0); PROTEIN,URINE NEGATIVE (Neg); UA COLLECTION TYPE CLN CATCH MIDSTREAM; UROBILINOGEN,URINE 0.2 E.U/dL (0.2-1.0)
[2018-01-25 05:45] LABS: ALANINE AMINOTRANSFERASE 20 U/L (12-78); ALBUMIN/GLOBULIN RATIO 0.6 (1.1-1.5); ALKALINE PHOSPHATASE 116 IU/L (46-116); ANION GAP 9 (8-16); ASPARTATE AMINO TRANSFERASE 20 U/L (10-37); BILIRUBIN,TOTAL 0.4 MG/DL (0.1-1.0); BLOOD UREA NITROGEN 6 MG/DL (7-18); BUN/CREATININE RATIO 10.2 (5.4-32.0); CALCIUM 8.6 MG/DL (8.5-10.1); CHLORIDE 105 MMOL/L (99-107); CREATININE 0.59 MG/DL (0.60-1.10); ETHANOL 0.167 GM/DL (0.0-0.010); GLUCOSE 186 MG/DL (70-104); LIPASE 685 U/L (73-393); POTASSIUM 4.3 MMOL/L (3.5-5.1); SODIUM 142 MMOL/L (135-145); TOTAL CARBON DIOXIDE 28.2 MMOL/L (24-32); TOTAL PROTEIN 7.7 G/DL (6.4-8.2); eGFR > 90 ML/MIN
[2018-01-25] MEDS ORDERED: ONDA4TAB9 PO (05:47)
[2018-01-25] MEDS ORDERED: HYDR-3965 PO (05:47)
[2018-01-25 05:58] LABS: URINE AMPHETAMINE SCREEN NEGATIVE (Neg); URINE BARBITUATE SCREEN NEGATIVE (Neg); URINE BENZODIAZEPINES SCREEN NEGATIVE (Neg); URINE CANNABINOID SCREEN NEGATIVE (Neg); URINE COCAINE SCREEN NEGATIVE (Neg); URINE METHADONE SCREEN NEGATIVE (Neg); URINE OPIATE SCREEN NEGATIVE (Neg); URINE PHENCYCLIDINE SCREEN NEGATIVE (Neg)
== END 2018-01-25 06:31 | disposition home or self-care (01) ==
LOC: ER 03:00
DX: E10.42 Type 1 diabetes mellitus with diabetic polyneuropathy (principal); E10.621 Type 1 diabetes mellitus with foot ulcer; E10.65 Type 1 diabetes mellitus with hyperglycemia; L97.519 Non-pressure chronic ulcer of other part of right foot with unspecified severity; L97.529 Non-pressure chronic ulcer of other part of left foot with unspecified severity; K86.3 Pseudocyst of pancreas; K85.20 Alcohol induced acute pancreatitis without necrosis or infection; I10 Essential (primary) hypertension; I25.10 Atherosclerotic heart disease of native coronary artery without angina pectoris; I25.2 Old myocardial infarction; D64.9 Anemia, unspecified; F17.210 Nicotine dependence, cigarettes, uncomplicated; F10.129 Alcohol abuse with intoxication, unspecified; E78.00 Pure hypercholesterolemia, unspecified; Z87.19 Personal history of other diseases of the digestive system; Z98.890 Other specified postprocedural states; Z59.0 Homelessness; Z56.0 Unemployment, unspecified; Z79.4 Long term (current) use of insulin; Z79.899 Other long term (current) drug therapy; Y90.0 Blood alcohol level of less than 20 mg/100 ml
CPT/HCPCS: 36415; 74176; 80053; 80305; 80320; 81003; 83690; 85025; 96361; 96374; 96375; 99285; J2270; J2405; J7030

== ENCOUNTER 2018-02-09 21:56 | Emergency (ER) | payer MEDICAID ==
[~2018-02-09] VITALS: Ht 175.3 cm; Wt 73.0 kg
[~2018-02-09 21:56] MED LIST changes: +HYDR-3965 PO; +ONDA4TAB9 PO
[2018-02-09] MEDS ORDERED: normal saline 1000ML IV soln IVB ONE (23:00)
[2018-02-09 23:16] LABS: PROTHROMBIN TIME 10.7 SECONDS (9.0-12.0)
[2018-02-09 23:23] LABS: BASOPHILS # (AUTO) 0.1 X10'3 (0-0.2); BASOPHILS % (AUTO) 1.1 % (0-1); EOSINOPHILS # (AUTO) 0.1 X10'3 (0-0.9); EOSINOPHILS % (AUTO) 2.2 % (0-6); HEMATOCRIT 36.6 % (42.0-52.0); HEMOGLOBIN 12.7 g/dl (14.0-17.9); LYMPHOCYTES % (AUTO) 35.5 % (21-51); MEAN CORPUSCULAR HEMOGLOBIN 31.5 PG (27.0-31.0); MEAN CORPUSCULAR HGB CONC 34.8 % (33.0-36.5); MEAN CORPUSCULAR VOLUME 90.5 FL (78-98); MEAN PLATELET VOLUME 8.1 FL (7.4-10.4); MONOCYTES # (AUTO) 0.5 X10'3 (0-0.9); MONOCYTES % (AUTO) 9.7 % (2-12); NEUTROPHILS # (AUTO) 2.9 X10'3 (1.8-7.7); NEUTROPHILS % (AUTO) 51.5 % (42-75); PLATELET COUNT 143 X10'3 (140-440); RED BLOOD COUNT 4.04 X10'6 (4.70-6.10); RED CELL DISTRIBUTION WIDTH 16.4 % (11.5-14.5); WHITE BLOOD COUNT 5.6 X10'3 (4.5-11.0)
[2018-02-09 23:29] LABS: ALANINE AMINOTRANSFERASE 20 U/L (12-78); ALBUMIN/GLOBULIN RATIO 0.6 (1.1-1.5); ALKALINE PHOSPHATASE 132 IU/L (46-116); ANION GAP 12 (8-16); ASPARTATE AMINO TRANSFERASE 24 U/L (10-37); BILIRUBIN,TOTAL 0.5 MG/DL (0.1-1.0); BLOOD UREA NITROGEN 9 MG/DL (7-18); BUN/CREATININE RATIO 11.3 (5.4-32.0); CALCIUM 8.4 MG/DL (8.5-10.1); CHLORIDE 104 MMOL/L (99-107); ETHANOL 0.232 GM/DL (0.0-0.010); GLUCOSE 150 MG/DL (70-104); LIPASE 355 U/L (73-393); SODIUM 140 MMOL/L (135-145); TOTAL CARBON DIOXIDE 23.8 MMOL/L (24-32); TOTAL PROTEIN 8.1 G/DL (6.4-8.2); eGFR > 90 ML/MIN
[2018-02-09 23:42] LABS: CLARITY,URINE CLEAR (Clear); COLOR,URINE YELLOW (Yellow); GLUCOSE, URINE NEGATIVE (Neg); KETONES,URINE NEGATIVE (Neg); LEUKOCYTE ESTERASE ,URINE NEGATIVE (Neg); NITRITES, URINE NEGATIVE (Neg); OCCULT BLOOD,URINE TRACE-INTACT (Neg); PH,URINE 5.5 (4.8-8.0); PROTEIN,URINE NEGATIVE (Neg)
[2018-02-10 00:02] LABS: UA COLLECTION TYPE CLN CATCH MIDSTREAM
[2018-02-10 00:03] LABS: RBC,URINE NONE SEEN /HPF (0-2); SQUAMOUS EPITHELIAL CELL,UR NONE SEEN /LPF (FEW); WBC,URINE NONE SEEN /HPF (0-4)
[2018-02-10 00:04] LABS: BACTERIA,URINE NONE SEEN /HPF (Neg); MUCUS STRANDS FEW /LPF (Neg)
[2018-02-10] MEDS ORDERED: LORazepam 2 mg/ml vial IV ONE (00:15)
[2018-02-10] MEDS ORDERED: HYDR-569 PO (02:33)
[2018-02-10 03:00] VITALS: BP 133/79
[2018-02-10] MEDS ORDERED: LEVO500T89 PO (11:46)
== END 2018-02-10 03:12 | disposition home or self-care (01) ==
LOC: ER 21:57
DX: K85.90 Acute pancreatitis without necrosis or infection, unspecified (principal); F10.920 Alcohol use, unspecified with intoxication, uncomplicated; E11.42 Type 2 diabetes mellitus with diabetic polyneuropathy; I25.10 Atherosclerotic heart disease of native coronary artery without angina pectoris; E78.00 Pure hypercholesterolemia, unspecified; I10 Essential (primary) hypertension; I25.2 Old myocardial infarction; Z98.890 Other specified postprocedural states; Z79.4 Long term (current) use of insulin; Z79.899 Other long term (current) drug therapy; Z56.0 Unemployment, unspecified; Z59.0 Homelessness; Z60.2 Problems related to living alone
CPT/HCPCS: 36415; 74176; 80053; 80320; 81001; 82140; 83690; 85025; 85610; 96374; 99285; J2060; J7030; 81003

== ENCOUNTER 2018-02-10 10:53 | Emergency (ER) | payer MEDICAID ==
[~2018-02-10] VITALS: Ht 175.3 cm; Wt 78.0 kg
[2018-02-10 11:10] VITALS: BP 124/68
[2018-02-10] MEDS ORDERED: LEVO500T89 PO (11:46)
== END 2018-02-10 12:21 | disposition home or self-care (01) ==
LOC: ER 10:53
DX: E11.621 Type 2 diabetes mellitus with foot ulcer (principal); L97.529 Non-pressure chronic ulcer of other part of left foot with unspecified severity; L97.519 Non-pressure chronic ulcer of other part of right foot with unspecified severity; E11.42 Type 2 diabetes mellitus with diabetic polyneuropathy; I25.10 Atherosclerotic heart disease of native coronary artery without angina pectoris; E78.00 Pure hypercholesterolemia, unspecified; I10 Essential (primary) hypertension; I25.2 Old myocardial infarction; K57.92 Diverticulitis of intestine, part unspecified, without perforation or abscess without bleeding; Z98.890 Other specified postprocedural states; Z79.4 Long term (current) use of insulin; Z79.899 Other long term (current) drug therapy; Z60.2 Problems related to living alone; Z56.0 Unemployment, unspecified; Z59.0 Homelessness
CPT/HCPCS: 82948; 99284; A6446; A6449

== ENCOUNTER 2018-02-20 09:56 | Emergency (ER) | payer MEDICAID ==
[~2018-02-20] VITALS: Ht 175.3 cm; Wt 72.0 kg
[~2018-02-20 09:56] MED LIST changes: +LEVO500T89 PO
[2018-02-20 10:06] VITALS: BP 94/57
== END 2018-02-20 11:25 | disposition home or self-care (01) ==
LOC: ER 09:57
DX: Z02.89 Encounter for other administrative examinations (principal); R16.0 Hepatomegaly, not elsewhere classified; I25.10 Atherosclerotic heart disease of native coronary artery without angina pectoris; E78.00 Pure hypercholesterolemia, unspecified; I10 Essential (primary) hypertension; I25.2 Old myocardial infarction; E11.42 Type 2 diabetes mellitus with diabetic polyneuropathy; Z79.4 Long term (current) use of insulin; Z60.2 Problems related to living alone; Z59.0 Homelessness; Z56.0 Unemployment, unspecified; Z79.899 Other long term (current) drug therapy
CPT/HCPCS: 99281

== ENCOUNTER 2018-04-15 14:07 | Emergency (ER) | payer MEDICAID ==
[~2018-04-15] VITALS: Ht 175.3 cm; Wt 68.2 kg
[~2018-04-15 14:07] MED LIST changes: -HYDR-3965 PO; -LEVO500T89 PO; -ONDA4TAB9 PO; -TRAZ-143 PO; +TRAZ-218 PO
[2018-04-15] MEDS ORDERED: ondansetron/PF 4mg/2ml inj IV ONE (14:45)
[2018-04-15] MEDS ORDERED: HYDROcodone/acetaminophen 5mg/325mg tablet PO ONE (14:45)
[2018-04-15] MEDS ORDERED: ketorolac trometh. 30mg/ml inj. IV ONE (14:45)
[2018-04-15] MEDS ORDERED: cefTRIAXone 1g/NS 100ml IVPB 100 ML IV ONE (14:45)
[2018-04-15] MEDS ORDERED: normal saline 1000ML IV soln IVB ONE ×2 (14:45)
[2018-04-15] MEDS ORDERED: clindamycin 150mg capsule PO ONE (14:45)
[2018-04-15] MEDS ORDERED: CefTRIAXone/D5W-Rocephin 1gm 50 ML IV ONE (15:10)
[2018-04-15 15:20] LABS: BASOPHILS % (AUTO) 0.9 % (0-1); EOSINOPHILS # (AUTO) 0.1 X10'3 (0-0.9); EOSINOPHILS % (AUTO) 1.2 % (0-6); HEMOGLOBIN 11.9 g/dl (14.0-17.9); LYMPHOCYTES # (AUTO) 1.1 X10'3 (1.1-4.8); LYMPHOCYTES % (AUTO) 22.5 % (21-51); MEAN CORPUSCULAR HEMOGLOBIN 31.5 PG (27.0-31.0); MEAN CORPUSCULAR HGB CONC 34.1 % (33.0-36.5); MEAN CORPUSCULAR VOLUME 92.2 FL (78-98); MEAN PLATELET VOLUME 7.8 FL (7.4-10.4); MONOCYTES # (AUTO) 0.5 X10'3 (0-0.9); NEUTROPHILS # (AUTO) 3.1 X10'3 (1.8-7.7); NEUTROPHILS % (AUTO) 64.4 % (42-75); PLATELET COUNT 103 X10'3 (140-440); RED BLOOD COUNT 3.79 X10'6 (4.70-6.10); RED CELL DISTRIBUTION WIDTH 16.4 % (11.5-14.5); WHITE BLOOD COUNT 4.8 X10'3 (4.5-11.0)
[2018-04-15 15:29] LABS: PARTIAL THROMBOPLASTIN TIME 28 SECONDS (22-32); PROTHROMBIN TIME 10.8 SECONDS (9.0-12.0)
[2018-04-15] MEDS ORDERED: FLUO20CA39 PO (15:33)
[2018-04-15] MEDS ORDERED: LISI40TA4 PO (15:33)
[2018-04-15] MEDS ORDERED: TRAZ-218 PO (15:33)
[2018-04-15 15:35] LABS: ALANINE AMINOTRANSFERASE 33 U/L (12-78); ALBUMIN 2.6 G/DL (3.4-5.0); ALBUMIN/GLOBULIN RATIO 0.5 (1.1-1.5); ALKALINE PHOSPHATASE 241 IU/L (46-116); ANION GAP 10 (8-16); ASPARTATE AMINO TRANSFERASE 50 U/L (10-37); BILIRUBIN,TOTAL 0.5 MG/DL (0.1-1.0); BLOOD UREA NITROGEN 7 MG/DL (7-18); BUN/CREATININE RATIO 13.2 (5.4-32.0); CALCIUM 7.9 MG/DL (8.5-10.1); CHLORIDE 99 MMOL/L (99-107); CREATININE 0.53 MG/DL (0.60-1.10); GLUCOSE 138 MG/DL (70-104); MAGNESIUM 1.6 MG/DL (1.5-2.4); POTASSIUM 3.5 MMOL/L (3.5-5.1); SODIUM 135 MMOL/L (135-145); TOTAL CARBON DIOXIDE 26.5 MMOL/L (24-32); TOTAL PROTEIN 7.6 G/DL (6.4-8.2); eGFR > 90 ML/MIN
[2018-04-15] MEDS ORDERED: LANTUS SQ (15:37)
[2018-04-15] MEDS ORDERED: CEPH500C5 PO (15:39)
[2018-04-15] MEDS ORDERED: MELO-100 PO (15:39)
[2018-04-15] MEDS ORDERED: DOXY100C43 PO (15:39)
[2018-04-15] MEDS ORDERED: ONDA8TAB9 PO (15:39)
[2018-04-15] MEDS ORDERED: HYDR-3965 PO (15:39)
[2018-04-15] MEDS ORDERED: BLOO-122 TOP (15:41)
[2018-04-15 16:19] LABS: CLARITY,URINE CLEAR (Clear); COLOR,URINE STRAW (Yellow); GLUCOSE, URINE NEGATIVE (Neg); KETONES,URINE NEGATIVE (Neg); LEUKOCYTE ESTERASE ,URINE NEGATIVE (Neg); NITRITES, URINE NEGATIVE (Neg); OCCULT BLOOD,URINE TRACE-LYSED (Neg); PROTEIN,URINE NEGATIVE (Neg)
[2018-04-15 16:24] LABS: UA COLLECTION TYPE CLN CATCH MIDSTREAM
[2018-04-15 16:26] LABS: BACTERIA,URINE NONE SEEN /HPF (Neg); RBC,URINE 0-2 /HPF (0-2); SQUAMOUS EPITHELIAL CELL,UR NONE SEEN /LPF (FEW); WBC,URINE NONE SEEN /HPF (0-4)
[2018-04-15 16:36] LABS: URINE AMPHETAMINE SCREEN NEGATIVE (Neg); URINE BARBITUATE SCREEN NEGATIVE (Neg); URINE BENZODIAZEPINES SCREEN NEGATIVE (Neg); URINE CANNABINOID SCREEN NEGATIVE (Neg); URINE COCAINE SCREEN NEGATIVE (Neg); URINE METHADONE SCREEN NEGATIVE (Neg); URINE OPIATE SCREEN NEGATIVE (Neg); URINE PHENCYCLIDINE SCREEN NEGATIVE (Neg)
[2018-04-15 17:11] VITALS: BP 110/60
== END 2018-04-15 17:12 | disposition home or self-care (01) ==
LOC: ER 14:08
DX: L08.9 Local infection of the skin and subcutaneous tissue, unspecified (principal); I25.10 Atherosclerotic heart disease of native coronary artery without angina pectoris; I10 Essential (primary) hypertension; E78.00 Pure hypercholesterolemia, unspecified; I25.2 Old myocardial infarction; E11.42 Type 2 diabetes mellitus with diabetic polyneuropathy; Z59.0 Homelessness; Z56.0 Unemployment, unspecified; Z98.890 Other specified postprocedural states; Z79.899 Other long term (current) drug therapy
CPT/HCPCS: 36415; 71045; 80053; 80305; 81001; 83605; 83735; 84145; 85025; 85610; 85730; 87040; 93005; 96365; 96375; 99285; J0696; J1885; J2405; J7030

== ENCOUNTER 2018-05-30 02:21 | Inpatient (IN) | payer MEDICAID ==
[~2018-05-30] VITALS: Ht 175.3 cm; Wt 70.5 kg
[~2018-05-30 02:21] MED LIST changes: +BLOO-122 TOP; +CEPH500C5 PO; +MELO-100 PO; +ONDA8TAB9 PO
[2018-05-30] MEDS ORDERED: LORazepam 2 mg/ml vial IV ONE (02:40)
[2018-05-30] MEDS ORDERED: normal saline 1000ml 1,000 ML IV ONE (02:40)
[2018-05-30] MEDS ORDERED: normal saline 1000ML IV soln IVB ONE (02:40)
[2018-05-30] MEDS ORDERED: FOLI0.4T2 PO (02:42)
[2018-05-30 03:00] LABS: CLARITY,URINE CLEAR (Clear); COLOR,URINE STRAW (Yellow); GLUCOSE, URINE NEGATIVE (Neg); KETONES,URINE NEGATIVE (Neg); LEUKOCYTE ESTERASE ,URINE NEGATIVE (Neg); NITRITES, URINE NEGATIVE (Neg); OCCULT BLOOD,URINE TRACE-LYSED (Neg); PROTEIN,URINE NEGATIVE (Neg); UROBILINOGEN,URINE 0.2 E.U/dL (0.2-1.0)
[2018-05-30 03:05] LABS: UA COLLECTION TYPE CLN CATCH MIDSTREAM
[2018-05-30 03:06] LABS: BACTERIA,URINE NONE SEEN /HPF (Neg); SQUAMOUS EPITHELIAL CELL,UR FEW /LPF (FEW); WBC,URINE NONE SEEN /HPF (0-4)
[2018-05-30 03:07] LABS: INR 1.1 INR; PARTIAL THROMBOPLASTIN TIME 29 SECONDS (22-32); PROTHROMBIN TIME 11.5 SECONDS (9.0-12.0)
[2018-05-30 03:12] LABS: EOSINOPHILS # (AUTO) 0.1 X10'3 (0-0.9); EOSINOPHILS % (AUTO) 1.6 % (0-6); HEMATOCRIT 33.2 % (42.0-52.0); HEMOGLOBIN 11.4 g/dl (14.0-17.9); LYMPHOCYTES # (AUTO) 0.5 X10'3 (1.1-4.8); LYMPHOCYTES % (AUTO) 16.5 % (21-51); MEAN CORPUSCULAR HEMOGLOBIN 31.6 PG (27.0-31.0); MEAN CORPUSCULAR HGB CONC 34.4 % (33.0-36.5); MEAN CORPUSCULAR VOLUME 92.1 FL (78-98); MEAN PLATELET VOLUME 7.9 FL (7.4-10.4); MONOCYTES # (AUTO) 0.3 X10'3 (0-0.9); MONOCYTES % (AUTO) 10.2 % (2-12); NEUTROPHILS # (AUTO) 2.3 X10'3 (1.8-7.7); NEUTROPHILS % (AUTO) 70.7 % (42-75); PLATELET COUNT 64 X10'3 (140-440); RED CELL DISTRIBUTION WIDTH 15.2 % (11.5-14.5); WHITE BLOOD COUNT 3.2 X10'3 (4.5-11.0)
[2018-05-30 03:13] LABS: URINE AMPHETAMINE SCREEN NEGATIVE (Neg); URINE BARBITUATE SCREEN NEGATIVE (Neg); URINE BENZODIAZEPINES SCREEN NEGATIVE (Neg); URINE CANNABINOID SCREEN NEGATIVE (Neg); URINE COCAINE SCREEN NEGATIVE (Neg); URINE METHADONE SCREEN NEGATIVE (Neg); URINE OPIATE SCREEN NEGATIVE (Neg); URINE PHENCYCLIDINE SCREEN NEGATIVE (Neg)
[2018-05-30 03:14] LABS: ALANINE AMINOTRANSFERASE 37 U/L (12-78); ALBUMIN 2.9 G/DL (3.4-5.0); ALBUMIN/GLOBULIN RATIO 0.6 (1.1-1.5); ALKALINE PHOSPHATASE 205 IU/L (46-116); ANION GAP 7 (8-16); ASPARTATE AMINO TRANSFERASE 61 U/L (10-37); BILIRUBIN,TOTAL 0.9 MG/DL (0.1-1.0); BLOOD UREA NITROGEN 5 MG/DL (7-18); BUN/CREATININE RATIO 8.5 (5.4-32.0); CALCIUM 8.5 MG/DL (8.5-10.1); CHLORIDE 97 MMOL/L (99-107); CREATINE KINASE 209 U/L (39-308); CREATININE 0.59 MG/DL (0.60-1.10); ETHANOL < 0.010 GM/DL (0.0-0.010); GLUCOSE 184 MG/DL (70-104); LIPASE 387 U/L (73-393); MAGNESIUM 1.6 MG/DL (1.5-2.4); POTASSIUM 3.6 MMOL/L (3.5-5.1); SODIUM 135 MMOL/L (135-145); TOTAL CARBON DIOXIDE 30.8 MMOL/L (24-32); eGFR > 90 ML/MIN
[2018-05-30] MEDS ORDERED: ondansetron/PF 4mg/2ml inj IV ONE (03:20)
[2018-05-30] MEDS ORDERED: morphine 4 MG/ML inj SYRINge IV ONE (03:20)
[2018-05-30] MEDS ORDERED: glucagon, human recombinant 1mg kit SUBCUT PRN (04:10)
[2018-05-30] MEDS ORDERED: dextrose 50%-water 50ml dispensing syringe IV PRN ×2 (04:10)
[2018-05-30] MEDS ORDERED: dextrose ORAL solution 15 GM/59 ML bottle PO PRN ×2 (04:10)
[2018-05-30] MEDS ORDERED: MESSAGE TO PHARMACY PO ONE (04:10)
[2018-05-30] MEDS ORDERED: acetaminophen 325mg tablet PO PRN ×2 (04:10)
[2018-05-30] MEDS ORDERED: magnesium hydroxide 30ml (MOM) UD suspension PO PRN (04:10)
[2018-05-30] MEDS: CefTRIAXone 2gm/D5W 50ml 50 ML IV SCH (04:28)
[2018-05-30] MEDS: vancomycin/NS 1 GM ADD-VANTAGE 250 ML IV SCH ×3 (04:29→19:50)
[2018-05-30] MEDS: morphine 2 MG/ML inj. syringe IV PRN ×6 (04:47→21:22)
[2018-05-30] MEDS: lisinopril 20mg tablet PO SCH (07:43)
[2018-05-30] MEDS: thiamine 100mg tablet PO SCH (07:43)
[2018-05-30] MEDS: FLUoxetine 20mg capsule PO SCH (07:43)
[2018-05-30 08:40] VITALS: BP 138/67
[2018-05-30] MEDS: ondansetron/PF 4mg/2ml inj IV PRN ×2 (08:49→17:54)
[2018-05-30] MEDS: ALPRAZolam 0.5mg tablet PO PRN ×2 (08:49→19:50)
[2018-05-30] MEDS: folic acid 0.4mg tablet PO SCH (08:49)
[2018-05-30 11:00] VITALS: BP 121/72
[2018-05-30] MEDS: lactobacillus rhamnosus 10,000 MMU CELLS/CAPSULE PO SCH (19:50)
[2018-05-30 20:00] VITALS: BP 105/62
[2018-05-30] MEDS: traZODone 50mg tablet PO SCH (21:19)
[2018-05-30] MEDS: insulin glargine (Lantus) pen - multi-dose SQ SCH (21:21)
[2018-05-31] VITALS: BP 96/52
[2018-05-31] MEDS: ondansetron/PF 4mg/2ml inj IV PRN ×2 (01:58→09:00)
[2018-05-31] MEDS: morphine 2 MG/ML inj. syringe IV PRN ×3 (01:58→09:01)
[2018-05-31] MEDS ORDERED: VANCOMYCIN LEVEL IV NR (03:30)
[2018-05-31] MEDS: vancomycin/NS 1 GM ADD-VANTAGE 250 ML IV SCH (04:06)
[2018-05-31 05:05] LABS: BASOPHILS % (AUTO) 0.8 % (0-1); EOSINOPHILS # (AUTO) 0.1 X10'3 (0-0.9); HEMATOCRIT 30.3 % (42.0-52.0); HEMOGLOBIN 10.2 g/dl (14.0-17.9); LYMPHOCYTES # (AUTO) 0.4 X10'3 (1.1-4.8); LYMPHOCYTES % (AUTO) 10.5 % (21-51); MEAN CORPUSCULAR HEMOGLOBIN 31.7 PG (27.0-31.0); MEAN CORPUSCULAR HGB CONC 33.7 % (33.0-36.5); MEAN CORPUSCULAR VOLUME 93.8 FL (78-98); MEAN PLATELET VOLUME 8.2 FL (7.4-10.4); MONOCYTES # (AUTO) 0.1 X10'3 (0-0.9); MONOCYTES % (AUTO) 3.5 % (2-12); NEUTROPHILS # (AUTO) 3.3 X10'3 (1.8-7.7); NEUTROPHILS % (AUTO) 83.2 % (42-75); PLATELET COUNT 62 X10'3 (140-440); RED BLOOD COUNT 3.23 X10'6 (4.70-6.10); RED CELL DISTRIBUTION WIDTH 15.4 % (11.5-14.5)
[2018-05-31 05:22] LABS: ALBUMIN 2.3 G/DL (3.4-5.0); ANION GAP 9 (8-16); BLOOD UREA NITROGEN 9 MG/DL (7-18); BUN/CREATININE RATIO 16.4 (5.4-32.0); CALCIUM 8.1 MG/DL (8.5-10.1); CHLORIDE 103 MMOL/L (99-107); CREATININE 0.55 MG/DL (0.60-1.10); GLUCOSE 123 MG/DL (70-104); POTASSIUM 3.2 MMOL/L (3.5-5.1); SODIUM 139 MMOL/L (135-145); TOTAL CARBON DIOXIDE 26.8 MMOL/L (24-32); VANCOMYCIN,TROUGH 10.6 UG/ML (6.0-14.0); eGFR > 90 ML/MIN
[2018-05-31] MEDS ORDERED: potassium Cl 40MEQ/NS 500ml 500 ML IV PRN ×2 (05:45)
[2018-05-31] MEDS ORDERED: potassium Cl 20 mEq SR tablet PO PRN (05:45)
[2018-05-31 06:26] LABS: HEMOGLOBIN A1C 6.8 % (4.5-6.2)
[2018-05-31 07:06] VITALS: BP 100/56
[2018-05-31] MEDS: lisinopril 20mg tablet PO SCH (08:00)
[2018-05-31] MEDS: lactobacillus rhamnosus 10,000 MMU CELLS/CAPSULE PO SCH ×2 (08:49→20:18)
[2018-05-31] MEDS: folic acid 0.4mg tablet PO SCH (08:49)
[2018-05-31] MEDS: FLUoxetine 20mg capsule PO SCH (08:49)
[2018-05-31] MEDS: CefTRIAXone 2gm/D5W 50ml 50 ML IV SCH (08:49)
[2018-05-31] MEDS: insulin Lispro (HumaLOG) vial - multi-dose SQ SCH ×3 (08:52→18:42)
[2018-05-31] MEDS: thiamine 100mg tablet PO SCH (09:00)
[2018-05-31] MEDS: mag hydrox/Alum hydrox/simeth 30ml oral suspension PO PRN ×2 (09:07→13:26)
[2018-05-31] MEDS: potassium Cl 20 mEq SR tablet PO PRN ×3 (09:08→18:48)
[2018-05-31 11:19] VITALS: BP 111/68
[2018-05-31] MEDS ORDERED: metoclopramide 5 mg/ml inj IV PRN (12:20)
[2018-05-31] MEDS: gabapentin 100mg capsule PO SCH ×2 (12:44→20:18)
[2018-05-31] MEDS: HYDROcodone/acetaminophen 10/325mg tab PO PRN ×2 (12:44→18:37)
[2018-05-31] MEDS: vancomycin inj 1,250 MG in normal saline 250ml IV soln 250 ML IV SCH ×2 (13:26→20:19)
[2018-05-31 18:50] VITALS: BP 150/69
[2018-05-31] MEDS: ALPRAZolam 0.5mg tablet PO PRN (20:22)
[2018-05-31] MEDS: traZODone 50mg tablet PO SCH (21:30)
[2018-05-31] MEDS: insulin glargine (Lantus) pen - multi-dose SQ SCH (21:33)
[2018-06-01] VITALS: BP 96/52
[2018-06-01] MEDS: HYDROcodone/acetaminophen 10/325mg tab PO PRN ×5 (03:58→20:56)
[2018-06-01] MEDS: vancomycin inj 1,250 MG in normal saline 250ml IV soln 250 ML IV SCH ×3 (03:58→19:56)
[2018-06-01 05:17] LABS: BASOPHILS % (AUTO) 0.6 % (0-1); EOSINOPHILS # (AUTO) 0.1 X10'3 (0-0.9); EOSINOPHILS % (AUTO) 2.5 % (0-6); HEMATOCRIT 30.8 % (42.0-52.0); HEMOGLOBIN 10.4 g/dl (14.0-17.9); LYMPHOCYTES # (AUTO) 0.6 X10'3 (1.1-4.8); LYMPHOCYTES % (AUTO) 18.9 % (21-51); MEAN CORPUSCULAR HEMOGLOBIN 31.5 PG (27.0-31.0); MEAN CORPUSCULAR HGB CONC 33.7 % (33.0-36.5); MEAN CORPUSCULAR VOLUME 93.4 FL (78-98); MEAN PLATELET VOLUME 8.5 FL (7.4-10.4); MONOCYTES # (AUTO) 0.2 X10'3 (0-0.9); MONOCYTES % (AUTO) 6.7 % (2-12); NEUTROPHILS # (AUTO) 2.1 X10'3 (1.8-7.7); NEUTROPHILS % (AUTO) 71.3 % (42-75); PLATELET COUNT 72 X10'3 (140-440); RED CELL DISTRIBUTION WIDTH 15.5 % (11.5-14.5)
[2018-06-01 05:25] LABS: ALBUMIN 2.5 G/DL (3.4-5.0); ANION GAP 6 (8-16); BLOOD UREA NITROGEN 10 MG/DL (7-18); BUN/CREATININE RATIO 16.7 (5.4-32.0); CALCIUM 8.8 MG/DL (8.5-10.1); CHLORIDE 101 MMOL/L (99-107); GLUCOSE 130 MG/DL (70-104); POTASSIUM 4.6 MMOL/L (3.5-5.1); SODIUM 136 MMOL/L (135-145); TOTAL CARBON DIOXIDE 29.4 MMOL/L (24-32); eGFR > 90 ML/MIN
[2018-06-01 07:06] VITALS: BP 107/59
[2018-06-01 07:17] LABS: TOTAL CELLS COUNTED 100
[2018-06-01 07:18] LABS: ANISOCYTOSIS 1+; LARGE PLATELETS FEW; PLATELET ESTIMATE DECREASED; SMUDGE CELLS 1+
[2018-06-01] MEDS: folic acid 0.4mg tablet PO SCH (08:19)
[2018-06-01] MEDS: lisinopril 20mg tablet PO SCH (08:19)
[2018-06-01] MEDS: thiamine 100mg tablet PO SCH (08:19)
[2018-06-01] MEDS: gabapentin 100mg capsule PO SCH ×3 (08:19→20:55)
[2018-06-01] MEDS: FLUoxetine 20mg capsule PO SCH (08:19)
[2018-06-01] MEDS: lactobacillus rhamnosus 10,000 MMU CELLS/CAPSULE PO SCH ×2 (08:19→20:55)
[2018-06-01] MEDS: CefTRIAXone 2gm/D5W 50ml 50 ML IV SCH (08:20)
[2018-06-01] MEDS: insulin Lispro (HumaLOG) vial - multi-dose SQ SCH ×3 (08:31→19:19)
[2018-06-01] MEDS: ALPRAZolam 0.5mg tablet PO PRN (09:46)
[2018-06-01] MEDS ORDERED: VANCOMYCIN LEVEL IV NR (11:30)
[2018-06-01 11:36] VITALS: BP 101/54
[2018-06-01 20:00] VITALS: BP 106/60
[2018-06-01] MEDS: traZODone 50mg tablet PO SCH (20:55)
[2018-06-01] MEDS: insulin glargine (Lantus) pen - multi-dose SQ SCH (21:19)
[2018-06-02] VITALS: BP 106/58
[2018-06-02] MEDS: HYDROcodone/acetaminophen 10/325mg tab PO PRN ×2 (03:52→10:03)
[2018-06-02] MEDS: vancomycin inj 1,250 MG in normal saline 250ml IV soln 250 ML IV SCH ×2 (03:53→11:50)
[2018-06-02 05:07] LABS: ALBUMIN 2.5 G/DL (3.4-5.0); ANION GAP 7 (8-16); BLOOD UREA NITROGEN 9 MG/DL (7-18); BUN/CREATININE RATIO 13.4 (5.4-32.0); CALCIUM 9.3 MG/DL (8.5-10.1); CHLORIDE 101 MMOL/L (99-107); CREATININE 0.67 MG/DL (0.60-1.10); GLUCOSE 174 MG/DL (70-104); POTASSIUM 4.2 MMOL/L (3.5-5.1); SODIUM 138 MMOL/L (135-145); TOTAL CARBON DIOXIDE 30.4 MMOL/L (24-32); eGFR > 90 ML/MIN
[2018-06-02 05:13] LABS: BASOPHILS % (AUTO) 1.6 % (0-1); EOSINOPHILS # (AUTO) 0.1 X10'3 (0-0.9); EOSINOPHILS % (AUTO) 3.9 % (0-6); HEMATOCRIT 31.6 % (42.0-52.0); HEMOGLOBIN 10.4 g/dl (14.0-17.9); LYMPHOCYTES # (AUTO) 0.8 X10'3 (1.1-4.8); LYMPHOCYTES % (AUTO) 28.2 % (21-51); MEAN CORPUSCULAR HEMOGLOBIN 31.5 PG (27.0-31.0); MEAN CORPUSCULAR VOLUME 95.2 FL (78-98); MEAN PLATELET VOLUME 8.7 FL (7.4-10.4); MONOCYTES # (AUTO) 0.4 X10'3 (0-0.9); NEUTROPHILS # (AUTO) 1.4 X10'3 (1.8-7.7); NEUTROPHILS % (AUTO) 51.3 % (42-75); PLATELET COUNT 83 X10'3 (140-440); RED BLOOD COUNT 3.32 X10'6 (4.70-6.10); RED CELL DISTRIBUTION WIDTH 15.4 % (11.5-14.5); WHITE BLOOD COUNT 2.8 X10'3 (4.5-11.0)
[2018-06-02 07:00] VITALS: BP 99/46
[2018-06-02 07:09] LABS: TOTAL CELLS COUNTED 100
[2018-06-02 07:10] LABS: LARGE PLATELETS FEW; PLATELET ESTIMATE DECREASED
[2018-06-02] MEDS: FLUoxetine 20mg capsule PO SCH (07:38)
[2018-06-02] MEDS: CefTRIAXone 2gm/D5W 50ml 50 ML IV SCH (07:38)
[2018-06-02] MEDS: folic acid 0.4mg tablet PO SCH (07:39)
[2018-06-02] MEDS: lisinopril 20mg tablet PO SCH (07:39)
[2018-06-02] MEDS: thiamine 100mg tablet PO SCH (07:39)
[2018-06-02] MEDS: lactobacillus rhamnosus 10,000 MMU CELLS/CAPSULE PO SCH (07:39)
[2018-06-02] MEDS: gabapentin 100mg capsule PO SCH ×2 (07:39→12:02)
[2018-06-02] MEDS: morphine 2 MG/ML inj. syringe IV PRN ×2 (07:45→12:03)
[2018-06-02] MEDS: ALPRAZolam 0.5mg tablet PO PRN (07:56)
[2018-06-02] MEDS: insulin Lispro (HumaLOG) vial - multi-dose SQ SCH (08:37)
[2018-06-02] MEDS ORDERED: APIX5TAB3 PO (10:57)
[2018-06-02] MEDS ORDERED: GABA100C PO (10:57)
[2018-06-02] MEDS ORDERED: CLIN300C85 PO (10:57)
[2018-06-02] MEDS ORDERED: HYDR-569 PO (10:57)
[2018-06-02 11:00] VITALS: BP 116/63
== END 2018-06-02 14:10 | disposition home or self-care (01) | DRG 383 ==
LOC: ER 02:22 → ED HOLD 04:10 → SUR 3N 08:08
PROVIDERS: ADMIT Internal Medicine; ATTEND Family Medicine
DX: L03.115 Cellulitis of right lower limb (principal); D61.818 Other pancytopenia; E11.42 Type 2 diabetes mellitus with diabetic polyneuropathy; E11.621 Type 2 diabetes mellitus with foot ulcer; I48.91 Unspecified atrial fibrillation; E86.0 Dehydration; L97.519 Non-pressure chronic ulcer of other part of right foot with unspecified severity; L03.116 Cellulitis of left lower limb; E78.00 Pure hypercholesterolemia, unspecified; E78.5 Hyperlipidemia, unspecified; E87.6 Hypokalemia; F10.20 Alcohol dependence, uncomplicated; F32.9 Major depressive disorder, single episode, unspecified; F41.9 Anxiety disorder, unspecified; G89.29 Other chronic pain; I10 Essential (primary) hypertension; L97.529 Non-pressure chronic ulcer of other part of left foot with unspecified severity; I25.10 Atherosclerotic heart disease of native coronary artery without angina pectoris; I25.2 Old myocardial infarction; Z59.0 Homelessness; Z79.4 Long term (current) use of insulin; Z87.11 Personal history of peptic ulcer disease; Z90.49 Acquired absence of other specified parts of digestive tract; Z79.899 Other long term (current) drug therapy
CPT/HCPCS: 36415; 71045; 73630; 80048; 80053; 80202; 80305; 80320; 81001; 82140; 82550; 82948; 83036; 83690; 83735; 84484; 85025; 85610; 85730; 87070; 93005; 93922; 96361; 96374; 96375; 99285; A4414; A6196; A6223; A6255; A6446; A6449; J0696; J1815; J2060; J2270; J2405; J3370; J7030

== ENCOUNTER 2018-06-08 09:57 | Day surgery (SDC) | payer MEDICAID ==
[~2018-06-08 09:57] MED LIST changes: +APIX5TAB3 PO; -CEPH500C5 PO; +CLIN300C85 PO; +FOLI0.4T2 PO; +GABA100C PO; +HYDR-4383 PO; -HYDR-569 PO; -ONDA8TAB9 PO
[2018-06-08] MEDS ORDERED: LIDOcaine/PRILOcaine 5gm cream TP ONE (11:40)
== END 2018-06-08 12:45 | disposition home or self-care (01) ==
LOC: WOUND CARE 09:57
PROVIDERS: ATTEND Surgery
DX: E11.621 Type 2 diabetes mellitus with foot ulcer (principal); L97.512 Non-pressure chronic ulcer of other part of right foot with fat layer exposed; L97.522 Non-pressure chronic ulcer of other part of left foot with fat layer exposed; E11.65 Type 2 diabetes mellitus with hyperglycemia; E11.42 Type 2 diabetes mellitus with diabetic polyneuropathy; I25.10 Atherosclerotic heart disease of native coronary artery without angina pectoris; I10 Essential (primary) hypertension; E78.5 Hyperlipidemia, unspecified; I25.2 Old myocardial infarction; G89.29 Other chronic pain; E78.00 Pure hypercholesterolemia, unspecified; I48.91 Unspecified atrial fibrillation; F10.20 Alcohol dependence, uncomplicated; F41.9 Anxiety disorder, unspecified; F32.9 Major depressive disorder, single episode, unspecified; Z90.49 Acquired absence of other specified parts of digestive tract; Z79.4 Long term (current) use of insulin; Z79.899 Other long term (current) drug therapy
CPT/HCPCS: 11042; 36416; 82948; 87070; 87075; 87102; 87176; A6021; A6206; A6209; L3260; 87077; 87186

== ENCOUNTER 2018-06-10 09:10 | Inpatient (IN) | payer MEDICAID ==
[~2018-06-10] VITALS: Ht 172.7 cm; Wt 78.8 kg
[2018-06-10] MEDS ORDERED: HYDROcodone/acetaminophen 5mg/325mg tablet PO ONE (09:35)
[2018-06-10 10:10] LABS: BASOPHILS % (AUTO) 1.2 % (0-1); HEMATOCRIT 34.7 % (42.0-52.0); HEMOGLOBIN 11.8 g/dl (14.0-17.9); LYMPHOCYTES # (AUTO) 1.2 X10'3 (1.1-4.8); LYMPHOCYTES % (AUTO) 31.3 % (21-51); MEAN CORPUSCULAR VOLUME 91.2 FL (78-98); MEAN PLATELET VOLUME 7.6 FL (7.4-10.4); MONOCYTES # (AUTO) 0.5 X10'3 (0-0.9); MONOCYTES % (AUTO) 12.5 % (2-12); NEUTROPHILS # (AUTO) 2.1 X10'3 (1.8-7.7); PLATELET COUNT 151 X10'3 (140-440); RED CELL DISTRIBUTION WIDTH 14.6 % (11.5-14.5); WHITE BLOOD COUNT 3.8 X10'3 (4.5-11.0)
[2018-06-10 10:25] LABS: ALANINE AMINOTRANSFERASE 37 U/L (12-78); ALBUMIN/GLOBULIN RATIO 0.6 (1.1-1.5); ALKALINE PHOSPHATASE 202 IU/L (46-116); ANION GAP 10 (8-16); ASPARTATE AMINO TRANSFERASE 40 U/L (10-37); BILIRUBIN,TOTAL 0.3 MG/DL (0.1-1.0); BLOOD UREA NITROGEN 5 MG/DL (7-18); BUN/CREATININE RATIO 9.4 (5.4-32.0); C-REACTIVE PROTEIN 0.94 MG/DL (0.0-0.5); CALCIUM 7.8 MG/DL (8.5-10.1); CHLORIDE 96 MMOL/L (99-107); CREATININE 0.53 MG/DL (0.60-1.10); GLUCOSE 174 MG/DL (70-104); SODIUM 132 MMOL/L (135-145); TOTAL CARBON DIOXIDE 26.5 MMOL/L (24-32); TOTAL PROTEIN 8.3 G/DL (6.4-8.2); eGFR > 90 ML/MIN
[2018-06-10] MEDS ORDERED: vancomycin/NS 1 GM ADD-VANTAGE 250 ML IV ONE (11:20)
[2018-06-10] MEDS ORDERED: LORazepam 2 mg/ml vial IV ONE (13:40)
[2018-06-10] MEDS: ampicillin/sulbac 3gm/NS 100ml 100 ML IV SCH ×2 (14:00→19:57)
[2018-06-10] MEDS ORDERED: ketorolac trometh. 30mg/ml inj. IV ONE (15:20)
[2018-06-10] MEDS ORDERED: magnesium hydroxide 30ml (MOM) UD suspension PO PRN (16:35)
[2018-06-10] MEDS ORDERED: bisacodyl 10mg suppository rectal RC PRN (16:35)
[2018-06-10] MEDS ORDERED: mag hydrox/Alum hydrox/simeth 30ml oral suspension PO PRN (16:35)
[2018-06-10] MEDS ORDERED: HYDROcodone/acetaminophen 5mg/325mg tablet PO PRN (16:35)
[2018-06-10] MEDS ORDERED: acetaminophen 325mg tablet PO PRN (16:35)
[2018-06-10] MEDS ORDERED: magnesium 4gm in 100ml NS 100 ML IV PRN (16:35)
[2018-06-10] MEDS ORDERED: magnesium Cl slow-release 64mg tablet PO PRN (16:35)
[2018-06-10] MEDS ORDERED: magnesium 1gm/100ml D5W IVPB 100 ML IV PRN (16:35)
[2018-06-10] MEDS ORDERED: potassium Cl 40MEQ/NS 500ml 500 ML IV PRN ×2 (16:35)
[2018-06-10] MEDS ORDERED: morphine 2 MG/ML inj. syringe IV PRN ×2 (16:35)
[2018-06-10] MEDS ORDERED: potassium Cl 20 mEq SR tablet PO PRN ×2 (16:35)
[2018-06-10] MEDS ORDERED: ondansetron/PF 4mg/2ml inj IV PRN (16:35)
[2018-06-10] MEDS ORDERED: dextrose ORAL solution 15 GM/59 ML bottle PO PRN ×2 (16:40)
[2018-06-10] MEDS ORDERED: insulin Lispro (HumaLOG) vial - multi-dose SQ SCH (16:40)
[2018-06-10] MEDS ORDERED: MESSAGE TO PHARMACY PO ONE (16:40)
[2018-06-10] MEDS ORDERED: dextrose 50%-water 50ml dispensing syringe IV PRN ×2 (16:40)
[2018-06-10] MEDS ORDERED: glucagon, human recombinant 1mg kit SUBCUT PRN (16:40)
[2018-06-10] MEDS: normal saline 1000ml 1,000 ML IV SCH ×3 (17:26→18:45)
[2018-06-10 18:55] VITALS: BP 136/56
[2018-06-10] MEDS ORDERED: gadopentetate dimeglumine 7.5 MMOL/15 ML syringe ONE (19:19)
[2018-06-10] MEDS: HYDROcodone/acetaminophen 10/325mg tab PO PRN (19:58)
[2018-06-10] MEDS: docusate sod 100mg capsule PO SCH (19:58)
[2018-06-10] MEDS ORDERED: vancomycin/NS 1 GM ADD-VANTAGE 250 ML IV SCH (20:00)
[2018-06-10] MEDS: insulin glargine (Lantus) pen - multi-dose SQ SCH (20:58)
[2018-06-10 22:00] VITALS: BP 134/87
[2018-06-10] MEDS: traZODone 50mg tablet PO SCH (22:41)
[2018-06-10] MEDS: ALPRAZolam 0.5mg tablet PO SCH (22:41)
[2018-06-11] MEDS: metroNIDAZOLE-Flagyl 500mg/NS 100 ML IV SCH ×3 (00:12→16:11)
[2018-06-11] MEDS: HYDROcodone/acetaminophen 10/325mg tab PO PRN ×6 (00:19→23:40)
[2018-06-11] MEDS: ampicillin/sulbac 3gm/NS 100ml 100 ML IV SCH ×2 (02:15→11:25)
[2018-06-11 05:00] VITALS: BP 115/68
[2018-06-11] MEDS: normal saline 1000ml 1,000 ML IV SCH ×2 (05:38→20:46)
[2018-06-11 06:16] LABS: BASOPHILS % (AUTO) 1.6 % (0-1); EOSINOPHILS # (AUTO) 0.1 X10'3 (0-0.9); EOSINOPHILS % (AUTO) 3.4 % (0-6); HEMATOCRIT 30.6 % (42.0-52.0); HEMOGLOBIN 10.4 g/dl (14.0-17.9); LYMPHOCYTES # (AUTO) 0.9 X10'3 (1.1-4.8); LYMPHOCYTES % (AUTO) 33.6 % (21-51); MEAN CORPUSCULAR HEMOGLOBIN 31.6 PG (27.0-31.0); MEAN CORPUSCULAR HGB CONC 34.1 % (33.0-36.5); MEAN CORPUSCULAR VOLUME 92.6 FL (78-98); MEAN PLATELET VOLUME 8.1 FL (7.4-10.4); MONOCYTES # (AUTO) 0.3 X10'3 (0-0.9); NEUTROPHILS # (AUTO) 1.2 X10'3 (1.8-7.7); NEUTROPHILS % (AUTO) 49.4 % (42-75); PLATELET COUNT 122 X10'3 (140-440); RED CELL DISTRIBUTION WIDTH 14.3 % (11.5-14.5); WHITE BLOOD COUNT 2.5 X10'3 (4.5-11.0)
[2018-06-11 06:33] LABS: ALANINE AMINOTRANSFERASE 31 U/L (12-78); ALBUMIN 2.4 G/DL (3.4-5.0); ALBUMIN/GLOBULIN RATIO 0.5 (1.1-1.5); ALKALINE PHOSPHATASE 195 IU/L (46-116); ANION GAP 6 (8-16); ASPARTATE AMINO TRANSFERASE 44 U/L (10-37); BILIRUBIN,TOTAL 0.4 MG/DL (0.1-1.0); BLOOD UREA NITROGEN 12 MG/DL (7-18); BUN/CREATININE RATIO 17.9 (5.4-32.0); CALCIUM 8.7 MG/DL (8.5-10.1); CHLORIDE 102 MMOL/L (99-107); CREATININE 0.67 MG/DL (0.60-1.10); GLUCOSE 213 MG/DL (70-104); MAGNESIUM 1.6 MG/DL (1.5-2.4); POTASSIUM 4.3 MMOL/L (3.5-5.1); SODIUM 137 MMOL/L (135-145); TOTAL CARBON DIOXIDE 29.5 MMOL/L (24-32); TOTAL PROTEIN 6.9 G/DL (6.4-8.2); eGFR > 90 ML/MIN
[2018-06-11] MEDS ORDERED: vancomycin/NS 1 GM ADD-VANTAGE 250 ML IV SCH (08:00)
[2018-06-11] MEDS: K and/or MAG REPLACEMENT MC SCH (08:00)
[2018-06-11] MEDS: docusate sod 100mg capsule PO SCH ×2 (09:29→20:46)
[2018-06-11] MEDS: pantoprazole 40mg Tablet.DR PO SCH (09:29)
[2018-06-11] MEDS: ALPRAZolam 0.5mg tablet PO SCH ×2 (09:30→20:45)
[2018-06-11] MEDS: aspirin 81mg tablet.DR PO SCH (09:30)
[2018-06-11] MEDS: enoxaparin 40mg/0.4ml syringe SUBCUT SCH (09:31)
[2018-06-11] MEDS: levoFLOXACIN-Levaquin 500mg/D5 100 ML IV SCH (11:42)
[2018-06-11 11:55] LABS: PLATELET ESTIMATE DECREASED; TOTAL CELLS COUNTED 100
[2018-06-11 18:00] VITALS: BP 117/76
[2018-06-11] MEDS: traZODone 50mg tablet PO SCH (20:45)
[2018-06-11] MEDS: vancomycin/NS 1 GM ADD-VANTAGE 250 ML IV SCH (20:46)
[2018-06-11] MEDS: insulin glargine (Lantus) pen - multi-dose SQ SCH (21:00)
[2018-06-11 22:00] VITALS: BP 122/64
[2018-06-12] MEDS: metroNIDAZOLE-Flagyl 500mg/NS 100 ML IV SCH ×2 (00:19→09:07)
[2018-06-12] MEDS: HYDROcodone/acetaminophen 10/325mg tab PO PRN ×3 (04:01→14:06)
[2018-06-12] MEDS: vancomycin/NS 1 GM ADD-VANTAGE 250 ML IV SCH ×2 (04:01→11:55)
[2018-06-12 06:00] VITALS: BP 127/67
[2018-06-12 06:40] LABS: ALANINE AMINOTRANSFERASE 31 U/L (12-78); ALBUMIN 2.4 G/DL (3.4-5.0); ALBUMIN/GLOBULIN RATIO 0.6 (1.1-1.5); ALKALINE PHOSPHATASE 165 IU/L (46-116); ANION GAP 4 (8-16); ASPARTATE AMINO TRANSFERASE 31 U/L (10-37); BILIRUBIN,TOTAL 0.5 MG/DL (0.1-1.0); BLOOD UREA NITROGEN 7 MG/DL (7-18); BUN/CREATININE RATIO 12.3 (5.4-32.0); CALCIUM 8.3 MG/DL (8.5-10.1); CHLORIDE 100 MMOL/L (99-107); CREATININE 0.57 MG/DL (0.60-1.10); GLUCOSE 132 MG/DL (70-104); MAGNESIUM 1.3 MG/DL (1.5-2.4); POTASSIUM 4.6 MMOL/L (3.5-5.1); SODIUM 136 MMOL/L (135-145); TOTAL CARBON DIOXIDE 32.3 MMOL/L (24-32); TOTAL PROTEIN 6.7 G/DL (6.4-8.2); eGFR > 90 ML/MIN
[2018-06-12 06:43] LABS: BASOPHILS % (AUTO) 0.9 % (0-1); EOSINOPHILS # (AUTO) 0.1 X10'3 (0-0.9); EOSINOPHILS % (AUTO) 2.9 % (0-6); HEMATOCRIT 30.2 % (42.0-52.0); HEMOGLOBIN 10.5 g/dl (14.0-17.9); LYMPHOCYTES # (AUTO) 0.8 X10'3 (1.1-4.8); LYMPHOCYTES % (AUTO) 26.1 % (21-51); MEAN CORPUSCULAR HEMOGLOBIN 31.9 PG (27.0-31.0); MEAN CORPUSCULAR HGB CONC 34.8 % (33.0-36.5); MEAN CORPUSCULAR VOLUME 91.9 FL (78-98); MONOCYTES # (AUTO) 0.3 X10'3 (0-0.9); MONOCYTES % (AUTO) 9.3 % (2-12); NEUTROPHILS # (AUTO) 1.8 X10'3 (1.8-7.7); NEUTROPHILS % (AUTO) 60.8 % (42-75); PLATELET COUNT 117 X10'3 (140-440); RED BLOOD COUNT 3.28 X10'6 (4.70-6.10); RED CELL DISTRIBUTION WIDTH 14.3 % (11.5-14.5)
[2018-06-12] MEDS ORDERED: VANCOMYCIN LEVEL IV ONE ×2 (07:30→11:30)
[2018-06-12] MEDS: K and/or MAG REPLACEMENT MC SCH (08:00)
[2018-06-12] MEDS: normal saline 1000ml 1,000 ML IV SCH (09:07)
[2018-06-12] MEDS: pantoprazole 40mg Tablet.DR PO SCH (09:08)
[2018-06-12] MEDS: ALPRAZolam 0.5mg tablet PO SCH (09:08)
[2018-06-12] MEDS: docusate sod 100mg capsule PO SCH (09:08)
[2018-06-12] MEDS: aspirin 81mg tablet.DR PO SCH (09:08)
[2018-06-12] MEDS: enoxaparin 40mg/0.4ml syringe SUBCUT SCH (09:08)
[2018-06-12 10:00] VITALS: BP 122/67
[2018-06-12] MEDS: levoFLOXACIN-Levaquin 500mg/D5 100 ML IV SCH (10:07)
[2018-06-12] MEDS ORDERED: vancomycin inj 1,250 MG in normal saline 250ml IV soln 250 ML IV SCH (20:00)
[2018-06-13] MEDS ORDERED: VANCOMYCIN LEVEL IV ONE (19:30)
== END 2018-06-12 17:32 | DRG 383 ==
LOC: ER 09:11 → ED HOLD 16:31 → EDBEDREQ 17:00 → ORTHO 4S 18:40
PROVIDERS: ADMIT Internal Medicine; ATTEND Family Medicine
DX: L03.031 Cellulitis of right toe (principal); E11.42 Type 2 diabetes mellitus with diabetic polyneuropathy; E11.621 Type 2 diabetes mellitus with foot ulcer; M86.8X7 Other osteomyelitis, ankle and foot; I48.91 Unspecified atrial fibrillation; E11.69 Type 2 diabetes mellitus with other specified complication; E11.65 Type 2 diabetes mellitus with hyperglycemia; E78.00 Pure hypercholesterolemia, unspecified; L97.519 Non-pressure chronic ulcer of other part of right foot with unspecified severity; L97.529 Non-pressure chronic ulcer of other part of left foot with unspecified severity; F41.9 Anxiety disorder, unspecified; Z60.2 Problems related to living alone; F10.20 Alcohol dependence, uncomplicated; I10 Essential (primary) hypertension; F32.9 Major depressive disorder, single episode, unspecified; I25.10 Atherosclerotic heart disease of native coronary artery without angina pectoris; I25.2 Old myocardial infarction; Z59.0 Homelessness; Z79.899 Other long term (current) drug therapy
CPT/HCPCS: 36415; 71045; 73660; 73720; 80053; 80202; 82948; 83605; 83735; 84145; 85025; 85651; 86140; 87040; 87070; 93005; 96365; 96375; 97116; 97161; 99285; A4649; A6196; A9579; J0295; J1650; J1815; J1885; J1956; J2060; J3370; J3490; J7030

== ENCOUNTER 2018-08-05 03:18 | Emergency (ER) | payer MEDICAID ==
[~2018-08-05] VITALS: Ht 177.8 cm; Wt 81.8 kg
[2018-08-05] MEDS ORDERED: glycopyrrolate 0.2mg/ml inj IV ONE (03:30)
[2018-08-05] MEDS ORDERED: normal saline 1000ML IV soln IVB ONE (03:30)
[2018-08-05] MEDS ORDERED: ketorolac trometh. 30mg/ml inj. IV ONE (03:30)
[2018-08-05] MEDS ORDERED: LORazepam 2 mg/ml vial IV ONE (03:30)
[2018-08-05 03:57] LABS: BASOPHILS % (AUTO) 0.5 % (0-1); EOSINOPHILS # (AUTO) 0.1 X10'3 (0-0.9); EOSINOPHILS % (AUTO) 1.2 % (0-6); HEMATOCRIT 33.9 % (42.0-52.0); HEMOGLOBIN 11.3 g/dl (14.0-17.9); LYMPHOCYTES # (AUTO) 0.8 X10'3 (1.1-4.8); MEAN CORPUSCULAR HEMOGLOBIN 29.2 PG (27.0-31.0); MEAN CORPUSCULAR HGB CONC 33.4 % (33.0-36.5); MEAN CORPUSCULAR VOLUME 87.3 FL (78-98); MEAN PLATELET VOLUME 7.6 FL (7.4-10.4); MONOCYTES # (AUTO) 0.5 X10'3 (0-0.9); MONOCYTES % (AUTO) 9.2 % (2-12); NEUTROPHILS # (AUTO) 4.2 X10'3 (1.8-7.7); NEUTROPHILS % (AUTO) 75.1 % (42-75); PLATELET COUNT 141 X10'3 (140-440); RED BLOOD COUNT 3.89 X10'6 (4.70-6.10); RED CELL DISTRIBUTION WIDTH 14.7 % (11.5-14.5); WHITE BLOOD COUNT 5.6 X10'3 (4.5-11.0)
[2018-08-05 04:14] LABS: ALANINE AMINOTRANSFERASE 36 U/L (12-78); ALBUMIN 3.7 G/DL (3.4-5.0); ALBUMIN/GLOBULIN RATIO 0.9 (1.1-1.5); ALKALINE PHOSPHATASE 113 IU/L (46-116); ANION GAP 7 (8-16); ASPARTATE AMINO TRANSFERASE 27 U/L (10-37); BILIRUBIN,TOTAL 0.6 MG/DL (0.1-1.0); BLOOD UREA NITROGEN 4 MG/DL (7-18); BUN/CREATININE RATIO 5.4 (5.4-32.0); CALCIUM 9.2 MG/DL (8.5-10.1); CHLORIDE 101 MMOL/L (99-107); CREATININE 0.74 MG/DL (0.60-1.10); GLUCOSE 194 MG/DL (70-104); POTASSIUM 4.2 MMOL/L (3.5-5.1); SODIUM 137 MMOL/L (135-145); TOTAL CARBON DIOXIDE 28.9 MMOL/L (24-32); TOTAL PROTEIN 7.8 G/DL (6.4-8.2); eGFR > 90 ML/MIN
[2018-08-05 04:20] LABS: MAGNESIUM 1.5 MG/DL (1.5-2.4)
[2018-08-05 04:56] VITALS: BP 129/55
[2018-08-05] MEDS ORDERED: FLUO20CA39 PO (23:20)
[2018-08-05] MEDS ORDERED: HYDR-4353 PO (23:20)
[2018-08-05] MEDS ORDERED: LORA2TAB96 PO (23:22)
[2018-08-05] MEDS ORDERED: HYDR25CA PO (23:57)
[2018-08-05] MEDS ORDERED: ASPI-529 PO (23:57)
== END 2018-08-05 05:01 | disposition home or self-care (01) ==
LOC: ER 03:19
DX: R07.89 Other chest pain (principal); R19.7 Diarrhea, unspecified; F41.9 Anxiety disorder, unspecified; E11.42 Type 2 diabetes mellitus with diabetic polyneuropathy; I25.10 Atherosclerotic heart disease of native coronary artery without angina pectoris; E78.00 Pure hypercholesterolemia, unspecified; I10 Essential (primary) hypertension; I25.2 Old myocardial infarction; F10.20 Alcohol dependence, uncomplicated; F15.90 Other stimulant use, unspecified, uncomplicated; Z98.890 Other specified postprocedural states; Z59.0 Homelessness; Z56.0 Unemployment, unspecified; Y90.9 Presence of alcohol in blood, level not specified
CPT/HCPCS: 36415; 71045; 80053; 83735; 83880; 84484; 85025; 93005; 96374; 96375; 99284; J1885; J2060; J7030; J3490

== ENCOUNTER 2018-08-05 18:28 | Inpatient (IN) | payer MEDICAID ==
[~2018-08-05] VITALS: Ht 172.7 cm; Wt 80.0 kg
[2018-08-05] MEDS ORDERED: normal saline 1000ML IV soln IV ONE (19:30)
[2018-08-05] MEDS ORDERED: acetaminophen 325mg tablet PO ONE (19:45)
[2018-08-05 20:03] LABS: BASOPHILS % (AUTO) 0.3 % (0-1); EOSINOPHILS # (AUTO) 0.1 X10'3 (0-0.9); EOSINOPHILS % (AUTO) 0.9 % (0-6); HEMATOCRIT 32.5 % (42.0-52.0); HEMOGLOBIN 11.1 g/dl (14.0-17.9); LYMPHOCYTES # (AUTO) 0.5 X10'3 (1.1-4.8); LYMPHOCYTES % (AUTO) 6.4 % (21-51); MEAN CORPUSCULAR HEMOGLOBIN 29.6 PG (27.0-31.0); MEAN CORPUSCULAR HGB CONC 34.2 % (33.0-36.5); MEAN CORPUSCULAR VOLUME 86.6 FL (78-98); MEAN PLATELET VOLUME 7.2 FL (7.4-10.4); MONOCYTES # (AUTO) 0.3 X10'3 (0-0.9); MONOCYTES % (AUTO) 4.6 % (2-12); NEUTROPHILS # (AUTO) 6.7 X10'3 (1.8-7.7); NEUTROPHILS % (AUTO) 87.8 % (42-75); PLATELET COUNT 116 X10'3 (140-440); RED BLOOD COUNT 3.75 X10'6 (4.70-6.10); RED CELL DISTRIBUTION WIDTH 14.9 % (11.5-14.5); WHITE BLOOD COUNT 7.6 X10'3 (4.5-11.0)
[2018-08-05 20:18] LABS: ALANINE AMINOTRANSFERASE 33 U/L (12-78); ALBUMIN 3.5 G/DL (3.4-5.0); ALBUMIN/GLOBULIN RATIO 0.8 (1.1-1.5); ALKALINE PHOSPHATASE 105 IU/L (46-116); ANION GAP 16 (8-16); ASPARTATE AMINO TRANSFERASE 23 U/L (10-37); BILIRUBIN,TOTAL 0.5 MG/DL (0.1-1.0); BLOOD UREA NITROGEN 3 MG/DL (7-18); CALCIUM 8.5 MG/DL (8.5-10.1); CHLORIDE 95 MMOL/L (99-107); CREATININE 0.75 MG/DL (0.60-1.10); GLUCOSE 162 MG/DL (70-104); MAGNESIUM 1.2 MG/DL (1.5-2.4); POTASSIUM 4.3 MMOL/L (3.5-5.1); SODIUM 131 MMOL/L (135-145); TOTAL PROTEIN 7.8 G/DL (6.4-8.2); eGFR > 90 ML/MIN
[2018-08-05 20:30] LABS: INR 1.1 INR; PROTHROMBIN TIME 11.2 SECONDS (9.0-12.0)
[2018-08-05 20:31] LABS: PARTIAL THROMBOPLASTIN TIME 24 SECONDS (22-32)
[2018-08-05 21:57] LABS: LIPASE 81 U/L (73-393)
[2018-08-05] MEDS ORDERED: metroNIDAZOLE-Flagyl 500mg/NS 100 ML IV STA (22:27)
[2018-08-05 22:28] LABS: CLARITY,URINE CLEAR (Clear); COLOR,URINE YELLOW (Yellow); GLUCOSE, URINE NEGATIVE (Neg); KETONES,URINE NEGATIVE (Neg); LEUKOCYTE ESTERASE ,URINE NEGATIVE (Neg); NITRITES, URINE NEGATIVE (Neg); OCCULT BLOOD,URINE TRACE-INTACT (Neg); PROTEIN,URINE NEGATIVE (Neg); UA COLLECTION TYPE CLN CATCH MIDSTREAM; UROBILINOGEN,URINE 0.2 E.U/dL (0.2-1.0)
[2018-08-05] MEDS ORDERED: levoFLOXACIN-Levaquin 500mg/D5 100 ML IV ONE (22:30)
[2018-08-05 22:36] LABS: BACTERIA,URINE NONE SEEN /HPF (Neg); RBC,URINE NONE SEEN /HPF (0-2); SQUAMOUS EPITHELIAL CELL,UR NONE SEEN /LPF (FEW); WBC,URINE 0-4 /HPF (0-4)
[2018-08-05] MEDS ORDERED: ondansetron/PF 4mg/2ml inj IV ONE (22:45)
[2018-08-05] MEDS ORDERED: morphine 4 MG/ML inj SYRINge IV ONE (22:45)
[2018-08-05] MEDS ORDERED: magnesium 4gm in 100ml NS 100 ML IV ONE (22:50)
[2018-08-05] MEDS ORDERED: normal saline 1000ml 1,000 ML IV ONE (22:50)
[2018-08-05 23:05] LABS: URINE AMPHETAMINE SCREEN NEGATIVE (Neg); URINE BARBITUATE SCREEN NEGATIVE (Neg); URINE BENZODIAZEPINES SCREEN NEGATIVE (Neg); URINE CANNABINOID SCREEN NEGATIVE (Neg); URINE COCAINE SCREEN NEGATIVE (Neg); URINE METHADONE SCREEN NEGATIVE (Neg); URINE OPIATE SCREEN POSITIVE (Neg); URINE PHENCYCLIDINE SCREEN NEGATIVE (Neg)
[2018-08-05] MEDS ORDERED: FLUO20CA39 PO (23:20)
[2018-08-05] MEDS ORDERED: HYDR-4353 PO (23:20)
[2018-08-05] MEDS ORDERED: LORA2TAB96 PO (23:22)
[2018-08-05] MEDS ORDERED: ASPI-529 PO (23:57)
[2018-08-05] MEDS ORDERED: HYDR25CA PO (23:57)
[2018-08-06] MEDS ORDERED: morphine 2 MG/ML inj. syringe IV PRN (00:20)
[2018-08-06] MEDS ORDERED: acetaminophen 325mg tablet PO PRN (00:20)
[2018-08-06] MEDS ORDERED: dextrose 50%-water 50ml dispensing syringe IV PRN ×2 (00:25)
[2018-08-06] MEDS ORDERED: glucagon, human recombinant 1mg kit SUBCUT PRN (00:25)
[2018-08-06] MEDS ORDERED: MESSAGE TO PHARMACY PO ONE (00:25)
[2018-08-06] MEDS ORDERED: dextrose ORAL solution 15 GM/59 ML bottle PO PRN ×2 (00:25)
[2018-08-06] MEDS: normal saline 1000ml 1,000 ML IV SCH ×2 (00:49→13:17)
[2018-08-06] MEDS: morphine 2 MG/ML inj. syringe IV PRN ×3 (00:49→13:27)
[2018-08-06 00:56] LABS: HEMOGLOBIN A1C 7.3 % (4.5-6.2)
[2018-08-06 01:05] VITALS: BP 124/70
[2018-08-06] MEDS: vancomycin 250MG/10ML UD oral solution 10ML BOTTLE PO SCH ×4 (01:44→20:27)
[2018-08-06] MEDS: LORazepam 1 MG tablet PO PRN ×3 (01:55→16:53)
[2018-08-06] MEDS: HYDROcodone/acetaminophen 10/325mg tab PO PRN ×5 (01:56→21:21)
[2018-08-06 07:19] VITALS: BP 126/61
[2018-08-06] MEDS: aspirin 81mg tab.chew PO SCH (07:21)
[2018-08-06] MEDS: FLUoxetine 20mg capsule PO SCH (07:21)
[2018-08-06] MEDS: heparin, porcine 5000 units/ml vial SQ SCH ×2 (07:22→20:23)
[2018-08-06 08:00] VITALS: BP 126/61
[2018-08-06 08:48] LABS: C DIFF ANTIGEN POSITIVE (NEGATIVE); C DIFF SPECIMEN=DIARRHEA? ACCEPTABLE; C DIFFICILE TOXINS A&B POSITIVE (Neg)
[2018-08-06 11:00] VITALS: BP 120/70
[2018-08-06 12:01] VITALS: BP 124/70
[2018-08-06] MEDS: insulin Lispro (HumaLOG) vial - multi-dose SQ SCH ×2 (13:16→18:50)
[2018-08-06] MEDS ORDERED: ibuprofen tablet 400 MG TABLET PO PRN (13:40)
[2018-08-06] MEDS ORDERED: ketorolac tromethamine 15mg/ml inj. IM PRN (13:40)
[2018-08-06] MEDS ORDERED: ketorolac tromethamine 15mg/ml inj. IV PRN (18:50)
[2018-08-06 20:00] VITALS: BP 130/72
[2018-08-06] MEDS: calcium carbonate/vitamin D3 tablet PO SCH (20:23)
[2018-08-06] MEDS: insulin glargine (Lantus) pen - multi-dose SQ SCH (21:25)
[2018-08-07] VITALS: BP 127/71
[2018-08-07] MEDS: HYDROcodone/acetaminophen 10/325mg tab PO PRN ×5 (02:09→20:59)
[2018-08-07] MEDS: vancomycin 250MG/10ML UD oral solution 10ML BOTTLE PO SCH ×4 (02:09→20:22)
[2018-08-07] MEDS: LORazepam 1 MG tablet PO PRN ×2 (02:09→20:59)
[2018-08-07 06:01] LABS: BASOPHILS % (AUTO) 0.5 % (0-1); EOSINOPHILS # (AUTO) 0.1 X10'3 (0-0.9); EOSINOPHILS % (AUTO) 2.2 % (0-6); HEMATOCRIT 29.3 % (42.0-52.0); LYMPHOCYTES # (AUTO) 0.9 X10'3 (1.1-4.8); LYMPHOCYTES % (AUTO) 28.2 % (21-51); MEAN CORPUSCULAR HGB CONC 34.2 % (33.0-36.5); MEAN CORPUSCULAR VOLUME 87.5 FL (78-98); MEAN PLATELET VOLUME 7.9 FL (7.4-10.4); MONOCYTES # (AUTO) 0.3 X10'3 (0-0.9); MONOCYTES % (AUTO) 9.7 % (2-12); NEUTROPHILS # (AUTO) 1.9 X10'3 (1.8-7.7); NEUTROPHILS % (AUTO) 59.4 % (42-75); PLATELET COUNT 102 X10'3 (140-440); RED BLOOD COUNT 3.35 X10'6 (4.70-6.10); RED CELL DISTRIBUTION WIDTH 14.4 % (11.5-14.5); WHITE BLOOD COUNT 3.3 X10'3 (4.5-11.0)
[2018-08-07 06:25] LABS: ALBUMIN 2.7 G/DL (3.4-5.0); ANION GAP 10 (8-16); BLOOD UREA NITROGEN 12 MG/DL (7-18); BUN/CREATININE RATIO 14.8 (5.4-32.0); CALCIUM 8.5 MG/DL (8.5-10.1); CHLORIDE 104 MMOL/L (99-107); CREATININE 0.81 MG/DL (0.60-1.10); GLUCOSE 180 MG/DL (70-104); SODIUM 137 MMOL/L (135-145); TOTAL CARBON DIOXIDE 23.4 MMOL/L (24-32); eGFR > 90 ML/MIN
[2018-08-07] MEDS: calcium carbonate/vitamin D3 tablet PO SCH ×2 (07:20→20:22)
[2018-08-07] MEDS: FLUoxetine 20mg capsule PO SCH (07:20)
[2018-08-07] MEDS: heparin, porcine 5000 units/ml vial SQ SCH ×2 (07:21→20:22)
[2018-08-07] MEDS: aspirin 81mg tab.chew PO SCH (07:21)
[2018-08-07 08:00] VITALS: BP 124/69
[2018-08-07 12:00] VITALS: BP 124/85
[2018-08-07 19:00] VITALS: BP 133/72
[2018-08-07] MEDS: insulin glargine (Lantus) pen - multi-dose SQ SCH (21:04)
[2018-08-08] VITALS: BP 130/89
[2018-08-08] MEDS: vancomycin 250MG/10ML UD oral solution 10ML BOTTLE PO SCH ×4 (01:08→19:31)
[2018-08-08] MEDS: HYDROcodone/acetaminophen 10/325mg tab PO PRN ×5 (01:09→23:06)
[2018-08-08 05:02] LABS: BASOPHILS % (AUTO) 0.4 % (0-1); EOSINOPHILS # (AUTO) 0.1 X10'3 (0-0.9); HEMATOCRIT 29.1 % (42.0-52.0); HEMOGLOBIN 9.9 g/dl (14.0-17.9); LYMPHOCYTES # (AUTO) 1.2 X10'3 (1.1-4.8); LYMPHOCYTES % (AUTO) 38.6 % (21-51); MEAN CORPUSCULAR HGB CONC 34.2 % (33.0-36.5); MEAN CORPUSCULAR VOLUME 87.8 FL (78-98); MEAN PLATELET VOLUME 7.8 FL (7.4-10.4); MONOCYTES # (AUTO) 0.3 X10'3 (0-0.9); MONOCYTES % (AUTO) 8.8 % (2-12); NEUTROPHILS # (AUTO) 1.5 X10'3 (1.8-7.7); NEUTROPHILS % (AUTO) 48.2 % (42-75); PLATELET COUNT 118 X10'3 (140-440); RED BLOOD COUNT 3.31 X10'6 (4.70-6.10); RED CELL DISTRIBUTION WIDTH 14.7 % (11.5-14.5); WHITE BLOOD COUNT 3.1 X10'3 (4.5-11.0)
[2018-08-08 05:36] LABS: ALBUMIN 2.8 G/DL (3.4-5.0); ANION GAP 9 (8-16); BLOOD UREA NITROGEN 14 MG/DL (7-18); BUN/CREATININE RATIO 22.2 (5.4-32.0); CALCIUM 8.7 MG/DL (8.5-10.1); CHLORIDE 103 MMOL/L (99-107); CREATININE 0.63 MG/DL (0.60-1.10); GLUCOSE 125 MG/DL (70-104); MAGNESIUM 1.6 MG/DL (1.5-2.4); POTASSIUM 4.2 MMOL/L (3.5-5.1); SODIUM 137 MMOL/L (135-145); TOTAL CARBON DIOXIDE 24.7 MMOL/L (24-32); eGFR > 90 ML/MIN
[2018-08-08] MEDS: calcium carbonate/vitamin D3 tablet PO SCH ×2 (07:20→19:31)
[2018-08-08] MEDS: aspirin 81mg tab.chew PO SCH (07:20)
[2018-08-08] MEDS: FLUoxetine 20mg capsule PO SCH (07:20)
[2018-08-08] MEDS: heparin, porcine 5000 units/ml vial SQ SCH ×2 (07:22→19:31)
[2018-08-08 07:38] VITALS: BP 131/69
[2018-08-08] MEDS: insulin Lispro (HumaLOG) vial - multi-dose SQ SCH ×2 (09:35→18:40)
[2018-08-08] MEDS: LORazepam 1 MG tablet PO PRN ×2 (09:36→21:44)
[2018-08-08] MEDS ORDERED: LORazepam 2 mg/ml vial IV ONE (15:50)
[2018-08-08 18:00] VITALS: BP 137/74
[2018-08-08] MEDS: insulin glargine (Lantus) pen - multi-dose SQ SCH (21:22)
[2018-08-09] VITALS: BP 140/71
[2018-08-09] MEDS: vancomycin 250MG/10ML UD oral solution 10ML BOTTLE PO SCH ×4 (02:18→19:12)
[2018-08-09] MEDS: HYDROcodone/acetaminophen 10/325mg tab PO PRN ×4 (03:06→17:42)
[2018-08-09 05:36] LABS: ALBUMIN 3.1 G/DL (3.4-5.0); ANION GAP 8 (8-16); BLOOD UREA NITROGEN 13 MG/DL (7-18); CALCIUM 8.8 MG/DL (8.5-10.1); CHLORIDE 100 MMOL/L (99-107); CREATININE 0.62 MG/DL (0.60-1.10); GLUCOSE 176 MG/DL (70-104); MAGNESIUM 1.5 MG/DL (1.5-2.4); POTASSIUM 4.4 MMOL/L (3.5-5.1); SODIUM 134 MMOL/L (135-145); TOTAL CARBON DIOXIDE 26.5 MMOL/L (24-32); eGFR > 90 ML/MIN
[2018-08-09 05:47] LABS: BASOPHILS % (AUTO) 0.3 % (0-1); EOSINOPHILS # (AUTO) 0.1 X10'3 (0-0.9); EOSINOPHILS % (AUTO) 3.7 % (0-6); HEMATOCRIT 31.5 % (42.0-52.0); HEMOGLOBIN 10.7 g/dl (14.0-17.9); LYMPHOCYTES # (AUTO) 1.1 X10'3 (1.1-4.8); LYMPHOCYTES % (AUTO) 35.8 % (21-51); MEAN CORPUSCULAR HEMOGLOBIN 29.7 PG (27.0-31.0); MEAN CORPUSCULAR HGB CONC 33.9 % (33.0-36.5); MEAN CORPUSCULAR VOLUME 87.7 FL (78-98); MEAN PLATELET VOLUME 8.1 FL (7.4-10.4); MONOCYTES # (AUTO) 0.3 X10'3 (0-0.9); MONOCYTES % (AUTO) 10.1 % (2-12); NEUTROPHILS # (AUTO) 1.5 X10'3 (1.8-7.7); NEUTROPHILS % (AUTO) 50.1 % (42-75); PLATELET COUNT 140 X10'3 (140-440); RED BLOOD COUNT 3.59 X10'6 (4.70-6.10); RED CELL DISTRIBUTION WIDTH 14.2 % (11.5-14.5); WHITE BLOOD COUNT 3.1 X10'3 (4.5-11.0)
[2018-08-09 08:00] VITALS: BP 128/73
[2018-08-09] MEDS: aspirin 81mg tab.chew PO SCH (08:37)
[2018-08-09] MEDS: calcium carbonate/vitamin D3 tablet PO SCH ×2 (08:37→19:12)
[2018-08-09] MEDS: FLUoxetine 20mg capsule PO SCH (08:37)
[2018-08-09] MEDS: heparin, porcine 5000 units/ml vial SQ SCH ×2 (08:37→19:12)
[2018-08-09] MEDS: insulin Lispro (HumaLOG) vial - multi-dose SQ SCH ×3 (08:42→19:17)
[2018-08-09] MEDS: LORazepam 1 MG tablet PO PRN ×2 (10:45→19:12)
[2018-08-09 20:18] VITALS: BP 125/74
[2018-08-09] MEDS: insulin glargine (Lantus) pen - multi-dose SQ SCH (20:59)
[2018-08-10] VITALS: BP 130/69
[2018-08-10] MEDS: vancomycin 250MG/10ML UD oral solution 10ML BOTTLE PO SCH ×4 (02:02→20:10)
[2018-08-10] MEDS: HYDROcodone/acetaminophen 10/325mg tab PO PRN ×4 (02:04→20:58)
[2018-08-10] MEDS: LORazepam 1 MG tablet PO PRN ×2 (04:27→13:33)
[2018-08-10 05:37] LABS: BASOPHILS % (AUTO) 0.6 % (0-1); EOSINOPHILS # (AUTO) 0.1 X10'3 (0-0.9); EOSINOPHILS % (AUTO) 2.8 % (0-6); HEMATOCRIT 33.9 % (42.0-52.0); HEMOGLOBIN 11.3 g/dl (14.0-17.9); LYMPHOCYTES # (AUTO) 1.2 X10'3 (1.1-4.8); LYMPHOCYTES % (AUTO) 30.9 % (21-51); MEAN CORPUSCULAR HEMOGLOBIN 29.3 PG (27.0-31.0); MEAN CORPUSCULAR HGB CONC 33.4 % (33.0-36.5); MEAN CORPUSCULAR VOLUME 87.8 FL (78-98); MEAN PLATELET VOLUME 7.6 FL (7.4-10.4); MONOCYTES # (AUTO) 0.5 X10'3 (0-0.9); MONOCYTES % (AUTO) 12.1 % (2-12); NEUTROPHILS # (AUTO) 2.1 X10'3 (1.8-7.7); NEUTROPHILS % (AUTO) 53.6 % (42-75); PLATELET COUNT 150 X10'3 (140-440); RED BLOOD COUNT 3.87 X10'6 (4.70-6.10); RED CELL DISTRIBUTION WIDTH 14.9 % (11.5-14.5)
[2018-08-10 05:47] LABS: ALBUMIN 3.3 G/DL (3.4-5.0); ANION GAP 8 (8-16); BLOOD UREA NITROGEN 15 MG/DL (7-18); BUN/CREATININE RATIO 20.5 (5.4-32.0); CHLORIDE 99 MMOL/L (99-107); CREATININE 0.73 MG/DL (0.60-1.10); GLUCOSE 219 MG/DL (70-104); MAGNESIUM 1.6 MG/DL (1.5-2.4); POTASSIUM 4.4 MMOL/L (3.5-5.1); SODIUM 134 MMOL/L (135-145); TOTAL CARBON DIOXIDE 26.9 MMOL/L (24-32); eGFR > 90 ML/MIN
[2018-08-10] MEDS: ondansetron/PF 4mg/2ml inj IV PRN ×2 (06:59→13:33)
[2018-08-10 07:00] VITALS: BP 119/75
[2018-08-10] MEDS: aspirin 81mg tab.chew PO SCH (08:42)
[2018-08-10] MEDS: calcium carbonate/vitamin D3 tablet PO SCH ×2 (08:42→20:10)
[2018-08-10] MEDS: FLUoxetine 20mg capsule PO SCH (08:42)
[2018-08-10] MEDS: heparin, porcine 5000 units/ml vial SQ SCH ×2 (08:44→20:10)
[2018-08-10] MEDS: insulin Lispro (HumaLOG) vial - multi-dose SQ SCH (09:16)
[2018-08-10] MEDS: morphine 2 MG/ML inj. syringe IV PRN (11:15)
[2018-08-10 12:05] VITALS: BP 131/70
[2018-08-10 20:00] VITALS: BP 145/55
[2018-08-10] MEDS: insulin glargine (Lantus) pen - multi-dose SQ SCH (20:19)
[2018-08-10 23:30] VITALS: BP 123/65
[2018-08-11] MEDS: morphine 2 MG/ML inj. syringe IV PRN ×4 (00:18→23:59)
[2018-08-11] MEDS: LORazepam 1 MG tablet PO PRN ×3 (01:00→18:01)
[2018-08-11] MEDS: vancomycin 250MG/10ML UD oral solution 10ML BOTTLE PO SCH ×4 (01:00→21:22)
[2018-08-11] MEDS: HYDROcodone/acetaminophen 10/325mg tab PO PRN ×5 (04:07→21:23)
[2018-08-11 06:02] LABS: BASOPHILS % (AUTO) 0.6 % (0-1); EOSINOPHILS # (AUTO) 0.1 X10'3 (0-0.9); EOSINOPHILS % (AUTO) 2.7 % (0-6); HEMATOCRIT 34.6 % (42.0-52.0); HEMOGLOBIN 11.6 g/dl (14.0-17.9); LYMPHOCYTES # (AUTO) 1.3 X10'3 (1.1-4.8); LYMPHOCYTES % (AUTO) 30.5 % (21-51); MEAN CORPUSCULAR HEMOGLOBIN 29.6 PG (27.0-31.0); MEAN CORPUSCULAR HGB CONC 33.6 % (33.0-36.5); MEAN CORPUSCULAR VOLUME 88.2 FL (78-98); MEAN PLATELET VOLUME 7.8 FL (7.4-10.4); MONOCYTES # (AUTO) 0.5 X10'3 (0-0.9); MONOCYTES % (AUTO) 13.1 % (2-12); NEUTROPHILS # (AUTO) 2.2 X10'3 (1.8-7.7); NEUTROPHILS % (AUTO) 53.1 % (42-75); PLATELET COUNT 151 X10'3 (140-440); RED BLOOD COUNT 3.92 X10'6 (4.70-6.10); RED CELL DISTRIBUTION WIDTH 14.5 % (11.5-14.5); WHITE BLOOD COUNT 4.2 X10'3 (4.5-11.0)
[2018-08-11 07:00] VITALS: BP 148/71
[2018-08-11] MEDS: FLUoxetine 20mg capsule PO SCH (07:56)
[2018-08-11] MEDS: aspirin 81mg tab.chew PO SCH (07:56)
[2018-08-11] MEDS: calcium carbonate/vitamin D3 tablet PO SCH ×2 (07:57→21:23)
[2018-08-11] MEDS: heparin, porcine 5000 units/ml vial SQ SCH ×2 (07:57→21:22)
[2018-08-11] MEDS: insulin Lispro (HumaLOG) vial - multi-dose SQ SCH ×3 (09:52→18:50)
[2018-08-11 11:14] VITALS: BP 135/68
[2018-08-11 19:30] VITALS: BP 104/70
[2018-08-11] MEDS: insulin glargine (Lantus) pen - multi-dose SQ SCH ×2 (21:17→21:20)
[2018-08-12] VITALS: BP 124/76
[2018-08-12] MEDS: vancomycin 250MG/10ML UD oral solution 10ML BOTTLE PO SCH ×4 (02:18→19:30)
[2018-08-12] MEDS: HYDROcodone/acetaminophen 10/325mg tab PO PRN ×5 (02:19→23:43)
[2018-08-12 07:00] VITALS: BP 126/67
[2018-08-12] MEDS: LORazepam 1 MG tablet PO PRN ×2 (07:32→17:49)
[2018-08-12] MEDS: calcium carbonate/vitamin D3 tablet PO SCH ×2 (07:34→19:29)
[2018-08-12] MEDS: aspirin 81mg tab.chew PO SCH (07:34)
[2018-08-12] MEDS: FLUoxetine 20mg capsule PO SCH (07:34)
[2018-08-12] MEDS: heparin, porcine 5000 units/ml vial SQ SCH ×2 (07:36→19:28)
[2018-08-12] MEDS: insulin Lispro (HumaLOG) vial - multi-dose SQ SCH ×3 (10:39→19:36)
[2018-08-12] MEDS: morphine 2 MG/ML inj. syringe IV PRN ×2 (10:40→21:41)
[2018-08-12 19:15] VITALS: BP 137/73
[2018-08-12] MEDS: insulin glargine (Lantus) pen - multi-dose SQ SCH (21:45)
[2018-08-13 00:30] VITALS: BP 100/60
[2018-08-13] MEDS: vancomycin 250MG/10ML UD oral solution 10ML BOTTLE PO SCH ×4 (02:16→20:56)
[2018-08-13] MEDS: morphine 2 MG/ML inj. syringe IV PRN (02:19)
[2018-08-13] MEDS: HYDROcodone/acetaminophen 10/325mg tab PO PRN ×4 (04:40→17:51)
[2018-08-13] MEDS: LORazepam 1 MG tablet PO PRN ×3 (05:12→20:56)
[2018-08-13] MEDS: aspirin 81mg tab.chew PO SCH (07:35)
[2018-08-13] MEDS: calcium carbonate/vitamin D3 tablet PO SCH ×2 (07:35→20:56)
[2018-08-13] MEDS: FLUoxetine 20mg capsule PO SCH (07:35)
[2018-08-13] MEDS: heparin, porcine 5000 units/ml vial SQ SCH ×2 (07:45→20:00)
[2018-08-13] MEDS: insulin Lispro (HumaLOG) vial - multi-dose SQ SCH ×2 (09:49→19:25)
[2018-08-13] MEDS ORDERED: VANC250C12 PO (10:54)
[2018-08-13 19:05] VITALS: BP 156/75
[2018-08-13] MEDS: insulin glargine (Lantus) pen - multi-dose SQ SCH (20:58)
[2018-08-14 00:05] VITALS: BP 126/63
[2018-08-14] MEDS: HYDROcodone/acetaminophen 10/325mg tab PO PRN ×3 (00:44→09:36)
[2018-08-14] MEDS: vancomycin 250MG/10ML UD oral solution 10ML BOTTLE PO SCH ×2 (02:39→07:43)
[2018-08-14] MEDS: LORazepam 1 MG tablet PO PRN ×2 (03:54→09:36)
[2018-08-14 07:29] VITALS: BP 115/68
[2018-08-14] MEDS: aspirin 81mg tab.chew PO SCH (07:43)
[2018-08-14] MEDS: FLUoxetine 20mg capsule PO SCH (07:43)
[2018-08-14] MEDS: calcium carbonate/vitamin D3 tablet PO SCH (07:43)
[2018-08-14] MEDS: heparin, porcine 5000 units/ml vial SQ SCH (07:44)
[2018-08-18] MEDS ORDERED: METR500T4 PO (18:51)
== END 2018-08-14 11:18 | disposition home or self-care (01) | DRG 248 ==
LOC: ER 18:29 → ED HOLD 08-06 00:19 → SUR 3N 08-06 01:00
PROVIDERS: ADMIT Internal Medicine; ATTEND Internal Medicine
DX: A04.72 Enterocolitis due to Clostridium difficile, not specified as recurrent (principal); E11.42 Type 2 diabetes mellitus with diabetic polyneuropathy; K74.60 Unspecified cirrhosis of liver; E78.00 Pure hypercholesterolemia, unspecified; F10.10 Alcohol abuse, uncomplicated; D64.9 Anemia, unspecified; S83.207A Unspecified tear of unspecified meniscus, current injury, left knee, initial encounter; F17.210 Nicotine dependence, cigarettes, uncomplicated; F41.9 Anxiety disorder, unspecified; F32.9 Major depressive disorder, single episode, unspecified; F15.90 Other stimulant use, unspecified, uncomplicated; X58.XXXA Exposure to other specified factors, initial encounter; Z60.2 Problems related to living alone; M25.562 Pain in left knee; G89.29 Other chronic pain; I10 Essential (primary) hypertension; I25.10 Atherosclerotic heart disease of native coronary artery without angina pectoris; I25.2 Old myocardial infarction; Z79.4 Long term (current) use of insulin; Z59.0 Homelessness; Z56.0 Unemployment, unspecified; Z79.899 Other long term (current) drug therapy; Z79.82 Long term (current) use of aspirin; Y93.89 Activity, other specified; Y92.89 Other specified places as the place of occurrence of the external cause; Y99.8 Other external cause status
CPT/HCPCS: 36415; 71045; 73564; 73721; 74176; 80048; 80053; 80305; 81001; 82948; 83036; 83605; 83690; 83735; 84145; 85025; 85610; 85730; 87040; 87070; 87324; 87449; 93005; 96361; 96365; 96368; 96375; 97116; 97161; 97530; 99285; G0378; J1644; J1815; J1885; J1956; J2060; J2270; J2405; J3475; J3490; J7030

== ENCOUNTER 2018-08-16 05:07 | Observation (INO) | payer MEDICAID ==
[~2018-08-16] VITALS: Ht 177.8 cm; Wt 79.4 kg
[~2018-08-16 05:07] MED LIST changes: -ALPR-624 PO; -APIX5TAB3 PO; +ASPI-529 PO; -CLIN300C85 PO; -FOLI0.4T2 PO; -GABA100C PO; +HYDR-4353 PO; -HYDR-4383 PO; +HYDR25CA PO; -LISI40TA4 PO; +LORA2TAB96 PO; -MELO-100 PO; -THI100T PO; -TRAZ-218 PO; +VANC250C12 PO
[2018-08-16] MEDS ORDERED: normal saline 1000ml 1,000 ML IV ONE (07:18)
[2018-08-16] MEDS ORDERED: normal saline 1000ML IV soln IVB ONE (07:20)
[2018-08-16] MEDS ORDERED: VANC250C12 PO (07:24)
[2018-08-16] MEDS ORDERED: vancomcyin 250mg capsules PO ONE (07:50)
[2018-08-16 07:57] LABS: BASOPHILS % (AUTO) 0.4 % (0-1); EOSINOPHILS # (AUTO) 0.1 X10'3 (0-0.9); EOSINOPHILS % (AUTO) 1.5 % (0-6); HEMOGLOBIN 13.7 g/dl (14.0-17.9); LYMPHOCYTES # (AUTO) 1.7 X10'3 (1.1-4.8); LYMPHOCYTES % (AUTO) 18.1 % (21-51); MEAN CORPUSCULAR HEMOGLOBIN 29.8 PG (27.0-31.0); MEAN CORPUSCULAR HGB CONC 34.2 % (33.0-36.5); MEAN PLATELET VOLUME 7.2 FL (7.4-10.4); MONOCYTES # (AUTO) 0.5 X10'3 (0-0.9); MONOCYTES % (AUTO) 5.6 % (2-12); NEUTROPHILS # (AUTO) 6.8 X10'3 (1.8-7.7); NEUTROPHILS % (AUTO) 74.4 % (42-75); PLATELET COUNT 222 X10'3 (140-440); RED BLOOD COUNT 4.59 X10'6 (4.70-6.10); RED CELL DISTRIBUTION WIDTH 15.2 % (11.5-14.5); WHITE BLOOD COUNT 9.2 X10'3 (4.5-11.0)
[2018-08-16 08:12] LABS: ALANINE AMINOTRANSFERASE 58 U/L (12-78); ALBUMIN 3.9 G/DL (3.4-5.0); ALBUMIN/GLOBULIN RATIO 0.8 (1.1-1.5); ALKALINE PHOSPHATASE 135 IU/L (46-116); ANION GAP 13 (8-16); ASPARTATE AMINO TRANSFERASE 35 U/L (10-37); BILIRUBIN,TOTAL 0.4 MG/DL (0.1-1.0); BLOOD UREA NITROGEN 7 MG/DL (7-18); BUN/CREATININE RATIO 10.8 (5.4-32.0); CALCIUM 8.7 MG/DL (8.5-10.1); CHLORIDE 94 MMOL/L (99-107); CREATININE 0.65 MG/DL (0.60-1.10); GLUCOSE 162 MG/DL (70-104); POTASSIUM 4.1 MMOL/L (3.5-5.1); SODIUM 131 MMOL/L (135-145); TOTAL CARBON DIOXIDE 24.2 MMOL/L (24-32); TOTAL PROTEIN 8.7 G/DL (6.4-8.2); eGFR > 90 ML/MIN
[2018-08-16] MEDS ORDERED: HYDROcodone/acetaminophen 10/325mg tab PO ONE (10:30)
[2018-08-16] MEDS ORDERED: mag hydrox/Alum hydrox/simeth 30ml oral suspension PO PRN (12:10)
[2018-08-16] MEDS ORDERED: dextrose 50%-water 50ml dispensing syringe IV PRN ×2 (12:10)
[2018-08-16] MEDS ORDERED: magnesium 4gm in 100ml NS 100 ML IV PRN (12:10)
[2018-08-16] MEDS ORDERED: morphine 2 MG/ML inj. syringe IV PRN ×2 (12:10)
[2018-08-16] MEDS ORDERED: insulin Lispro (HumaLOG) vial - multi-dose SQ SCH (12:10)
[2018-08-16] MEDS ORDERED: ondansetron/PF 4mg/2ml inj IV PRN (12:10)
[2018-08-16] MEDS ORDERED: magnesium Cl slow-release 64mg tablet PO PRN (12:10)
[2018-08-16] MEDS ORDERED: potassium Cl 20 mEq SR tablet PO PRN ×2 (12:10)
[2018-08-16] MEDS ORDERED: dextrose ORAL solution 15 GM/59 ML bottle PO PRN ×2 (12:10)
[2018-08-16] MEDS ORDERED: acetaminophen 325mg tablet PO PRN ×2 (12:10)
[2018-08-16] MEDS ORDERED: glucagon, human recombinant 1mg kit SUBCUT PRN (12:10)
[2018-08-16] MEDS ORDERED: potassium Cl 40MEQ/NS 500ml 500 ML IV PRN ×2 (12:10)
[2018-08-16] MEDS ORDERED: magnesium hydroxide 30ml (MOM) UD suspension PO PRN (12:10)
[2018-08-16] MEDS ORDERED: MESSAGE TO PHARMACY PO ONE (12:10)
[2018-08-16] MEDS: normal saline 1000ml 1,000 ML IV SCH ×2 (13:27→22:09)
[2018-08-16] MEDS: HYDROcodone/acetaminophen 10/325mg tab PO PRN ×2 (13:37→18:14)
[2018-08-16] MEDS: vancomycin 250MG/10ML UD oral solution 10ML BOTTLE PO SCH ×2 (14:40→20:52)
[2018-08-16] MEDS ORDERED: LORazepam 1 MG tablet PO PRN (16:30)
[2018-08-16] MEDS: lactobacillus rhamnosus 10,000 MMU CELLS/CAPSULE PO SCH (20:52)
[2018-08-16] MEDS ORDERED: insulin glargine (Lantus) pen - multi-dose SQ SCH (21:00)
[2018-08-16] MEDS: HYDROcodone/acetaminophen 5mg/325mg tablet PO PRN (22:25)
[2018-08-17] MEDS: vancomycin 250MG/10ML UD oral solution 10ML BOTTLE PO SCH (02:30)
[2018-08-17] MEDS: HYDROcodone/acetaminophen 5mg/325mg tablet PO PRN ×2 (02:30→08:07)
[2018-08-17] MEDS ORDERED: TRAZ-218 (07:32)
[2018-08-17] MEDS ORDERED: LOPE2CAP (07:32)
[2018-08-17] MEDS ORDERED: ASPI-1130 (07:32)
[2018-08-17] MEDS ORDERED: HYDR-3973 (07:32)
[2018-08-17] MEDS ORDERED: FLUO-1 (07:32)
[2018-08-17 08:00] VITALS: BP 126/65
[2018-08-17] MEDS ORDERED: K and/or MAG REPLACEMENT MC SCH (08:00)
[2018-08-17] MEDS ORDERED: enoxaparin 40mg/0.4ml syringe SQ SCH (08:00)
[2018-08-17] MEDS ORDERED: FLUoxetine 20mg capsule PO SCH (08:00)
[2018-08-17] MEDS ORDERED: aspirin 81mg tablet.DR PO SCH (08:00)
[2018-08-17] MEDS: lactobacillus rhamnosus 10,000 MMU CELLS/CAPSULE PO SCH (08:06)
[2018-08-17 08:38] LABS: BASOPHILS % (AUTO) 0.8 % (0-1); EOSINOPHILS % (AUTO) 1.3 % (0-6); HEMATOCRIT 34.2 % (42.0-52.0); HEMOGLOBIN 11.9 g/dl (14.0-17.9); LYMPHOCYTES # (AUTO) 0.9 X10'3 (1.1-4.8); LYMPHOCYTES % (AUTO) 24.5 % (21-51); MEAN CORPUSCULAR HEMOGLOBIN 30.1 PG (27.0-31.0); MEAN CORPUSCULAR HGB CONC 34.7 % (33.0-36.5); MEAN CORPUSCULAR VOLUME 86.7 FL (78-98); MEAN PLATELET VOLUME 7.1 FL (7.4-10.4); MONOCYTES # (AUTO) 0.4 X10'3 (0-0.9); MONOCYTES % (AUTO) 12.4 % (2-12); NEUTROPHILS # (AUTO) 2.2 X10'3 (1.8-7.7); PLATELET COUNT 150 X10'3 (140-440); RED BLOOD COUNT 3.95 X10'6 (4.70-6.10); WHITE BLOOD COUNT 3.6 X10'3 (4.5-11.0)
[2018-08-17 08:48] LABS: ALBUMIN 3.3 G/DL (3.4-5.0); ANION GAP 10 (8-16); BLOOD UREA NITROGEN 8 MG/DL (7-18); BUN/CREATININE RATIO 13.1 (5.4-32.0); CALCIUM 8.4 MG/DL (8.5-10.1); CHLORIDE 102 MMOL/L (99-107); CREATININE 0.61 MG/DL (0.60-1.10); GLUCOSE 161 MG/DL (70-104); SODIUM 139 MMOL/L (135-145); TOTAL CARBON DIOXIDE 26.6 MMOL/L (24-32); eGFR > 90 ML/MIN
[2018-08-18] MEDS ORDERED: METR-211 PO (18:51)
== END 2018-08-17 10:30 | disposition left against medical advice (07) ==
LOC: ER 05:08 → ED HOLD 12:09 → ORTHO 4S 08-17 07:09
PROVIDERS: ADMIT Hospitalist; ATTEND Hospitalist
DX: A04.72 Enterocolitis due to Clostridium difficile, not specified as recurrent (principal); E11.42 Type 2 diabetes mellitus with diabetic polyneuropathy; E78.00 Pure hypercholesterolemia, unspecified; F15.90 Other stimulant use, unspecified, uncomplicated; I10 Essential (primary) hypertension; I25.10 Atherosclerotic heart disease of native coronary artery without angina pectoris; F32.9 Major depressive disorder, single episode, unspecified; F41.9 Anxiety disorder, unspecified; I25.2 Old myocardial infarction; Z72.89 Other problems related to lifestyle; Z59.0 Homelessness; Z91.19 Patient's noncompliance with other medical treatment and regimen
CPT/HCPCS: 36415; 80048; 80053; 82948; 83735; 85025; 96361; 96372; 96374; 99284; G0378; J2405; J7030; J1650; J1815

== ENCOUNTER 2018-08-18 15:05 | Emergency (ER) | payer MEDICAID ==
[~2018-08-18] VITALS: Ht 177.8 cm; Wt 72.7 kg
[~2018-08-18 15:05] MED LIST changes: +ASPI-1130; -ASPI-529 PO; +FLUO-1; -FLUO20CA39 PO; +HYDR-3973; -HYDR-4353 PO; -HYDR25CA PO; +LOPE2CAP; -LORA2TAB96 PO; +TRAZ-218
[2018-08-18 18:31] VITALS: BP 132/67
[2018-08-18] MEDS ORDERED: metroNIDAZOLE 500mg tablet PO ONE (18:45)
[2018-08-18] MEDS ORDERED: vancomycin 125mg/5ml ORAL solution 5ml UD bottle PO ONE (18:45)
[2018-08-18] MEDS ORDERED: METR-211 PO (18:51)
== END 2018-08-18 19:00 | disposition home or self-care (01) ==
LOC: ER 15:06
DX: A04.72 Enterocolitis due to Clostridium difficile, not specified as recurrent (principal); I25.10 Atherosclerotic heart disease of native coronary artery without angina pectoris; E78.00 Pure hypercholesterolemia, unspecified; I10 Essential (primary) hypertension; I25.2 Old myocardial infarction; E11.42 Type 2 diabetes mellitus with diabetic polyneuropathy; F15.90 Other stimulant use, unspecified, uncomplicated; Z59.0 Homelessness; Z56.0 Unemployment, unspecified; Z98.890 Other specified postprocedural states; Z79.899 Other long term (current) drug therapy
CPT/HCPCS: 99283

== ENCOUNTER 2018-08-22 07:07 | Emergency (ER) | payer MEDICAID ==
[~2018-08-22] VITALS: Ht 177.8 cm; Wt 77.3 kg
[~2018-08-22 07:07] MED LIST changes: +METR-211 PO
[2018-08-22 07:11] VITALS: BP 135/80
[2018-08-22] MEDS ORDERED: HYDROcodone/acetaminophen 5mg/325mg tablet PO ONE (08:15)
== END 2018-08-22 09:28 | disposition home or self-care (01) ==
LOC: ER 07:08
DX: L03.031 Cellulitis of right toe (principal); R19.7 Diarrhea, unspecified; E11.42 Type 2 diabetes mellitus with diabetic polyneuropathy; I25.10 Atherosclerotic heart disease of native coronary artery without angina pectoris; E78.00 Pure hypercholesterolemia, unspecified; I10 Essential (primary) hypertension; I25.2 Old myocardial infarction; F15.90 Other stimulant use, unspecified, uncomplicated; Z79.4 Long term (current) use of insulin; Z79.82 Long term (current) use of aspirin; Z79.899 Other long term (current) drug therapy; Z59.0 Homelessness; Z56.0 Unemployment, unspecified; Z60.2 Problems related to living alone
CPT/HCPCS: 99284

== ENCOUNTER → 2018-08-27 | Emergency (ER) | payer MEDICAID ==
[~2018-08-27] VITALS: Ht 175.3 cm; Wt 80.9 kg
[~2018-08-27] MED LIST changes: +LORazepam 1 MG tablet PO ONE; +fentaNYL/PF 50MCG/1 ML 2ML syringe IV ONE; +normal saline 1000ML IV soln IVB ONE; +ondansetron/PF 4mg/2ml inj IV ONE
[2018-08-27 06:49] VITALS: BP 137/90
[2018-08-27 07:43] LABS: BASOPHILS % (AUTO) 0.5 % (0-1); EOSINOPHILS % (AUTO) 1.1 % (0-6); HEMOGLOBIN 11.5 g/dl (14.0-17.9); LYMPHOCYTES # (AUTO) 0.9 X10'3 (1.1-4.8); LYMPHOCYTES % (AUTO) 22.7 % (21-51); MEAN CORPUSCULAR HEMOGLOBIN 30.2 PG (27.0-31.0); MEAN CORPUSCULAR HGB CONC 33.9 % (33.0-36.5); MEAN PLATELET VOLUME 7.4 FL (7.4-10.4); MONOCYTES # (AUTO) 0.4 X10'3 (0-0.9); NEUTROPHILS # (AUTO) 2.7 X10'3 (1.8-7.7); NEUTROPHILS % (AUTO) 66.7 % (42-75); PLATELET COUNT 105 X10'3 (140-440); RED BLOOD COUNT 3.82 X10'6 (4.70-6.10); RED CELL DISTRIBUTION WIDTH 16.6 % (11.5-14.5)
[2018-08-27 07:59] LABS: URINE AMPHETAMINE SCREEN NEGATIVE (Neg); URINE BARBITUATE SCREEN NEGATIVE (Neg); URINE BENZODIAZEPINES SCREEN NEGATIVE (Neg); URINE CANNABINOID SCREEN NEGATIVE (Neg); URINE COCAINE SCREEN NEGATIVE (Neg); URINE METHADONE SCREEN NEGATIVE (Neg); URINE OPIATE SCREEN NEGATIVE (Neg); URINE PHENCYCLIDINE SCREEN NEGATIVE (Neg)
[2018-08-27 08:00] LABS: ALANINE AMINOTRANSFERASE 33 U/L (12-78); ALBUMIN 3.4 G/DL (3.4-5.0); ALBUMIN/GLOBULIN RATIO 0.8 (1.1-1.5); ALKALINE PHOSPHATASE 141 IU/L (46-116); ANION GAP 11 (8-16); ASPARTATE AMINO TRANSFERASE 34 U/L (10-37); BILIRUBIN,TOTAL 0.5 MG/DL (0.1-1.0); BLOOD UREA NITROGEN 6 MG/DL (7-18); CALCIUM 8.1 MG/DL (8.5-10.1); CHLORIDE 102 MMOL/L (99-107); ETHANOL < 0.010 GM/DL (0.0-0.010); GLUCOSE 201 MG/DL (70-104); POTASSIUM 4.1 MMOL/L (3.5-5.1); SODIUM 139 MMOL/L (135-145); TOTAL CARBON DIOXIDE 26.1 MMOL/L (24-32); TOTAL PROTEIN 7.7 G/DL (6.4-8.2); eGFR > 90 ML/MIN
== END | disposition home or self-care (01) ==
LOC: ER 06:46
DX: S00.81XA Abrasion of other part of head, initial encounter (principal); R11.2 Nausea with vomiting, unspecified; R19.7 Diarrhea, unspecified; I10 Essential (primary) hypertension; E78.00 Pure hypercholesterolemia, unspecified; I25.10 Atherosclerotic heart disease of native coronary artery without angina pectoris; F41.9 Anxiety disorder, unspecified; F32.9 Major depressive disorder, single episode, unspecified; E11.42 Type 2 diabetes mellitus with diabetic polyneuropathy; F15.10 Other stimulant abuse, uncomplicated; Z59.0 Homelessness; Z56.0 Unemployment, unspecified; Y04.0XXA Assault by unarmed brawl or fight, initial encounter; Y93.89 Activity, other specified; Y92.89 Other specified places as the place of occurrence of the external cause; Y99.8 Other external cause status
CPT/HCPCS: 36415; 70450; 80053; 80305; 80320; 85025; 96361; 96374; 96375; 99284; J2405; J3010; J7030

== ENCOUNTER 2018-09-06 21:51 | Emergency (ER) | payer MEDICAID ==
[~2018-09-06] VITALS: Ht 175.3 cm; Wt 80.0 kg
[~2018-09-06 21:51] MED LIST changes: -LORazepam 1 MG tablet PO ONE; +METR-159 PO; -METR-211 PO; -fentaNYL/PF 50MCG/1 ML 2ML syringe IV ONE; -normal saline 1000ML IV soln IVB ONE; -ondansetron/PF 4mg/2ml inj IV ONE
[2018-09-06 21:52] VITALS: BP 140/81
[2018-09-06] MEDS ORDERED: ketorolac tromethamine 15mg/ml inj. IM ONE (22:30)
[2018-09-06] MEDS ORDERED: LORazepam 0.5 MG tablet PO PRN (23:25)
[2018-09-06] MEDS ORDERED: silver sulfadiazine cream 400gm jar TP STA (23:53)
[2018-09-07] MEDS ORDERED: silver sulfadiazine cream 50gm TP STA (00:02)
--- NOTE | 2018-09-07 00:24 | NUR ---
PT STATES, "IM GOING TO GO TO [facility]". TAKING HIS TIME GETTING SHOES ON AND GETTING ITEMS TOGETHER TO LEAVE AFTER RECEIVNG DC INSTRUCTIONS AND WOUND CARE.
== END 2018-09-07 00:29 | disposition home or self-care (01) ==
LOC: ER 21:52
DX: E11.621 Type 2 diabetes mellitus with foot ulcer (principal); L97.529 Non-pressure chronic ulcer of other part of left foot with unspecified severity; L97.519 Non-pressure chronic ulcer of other part of right foot with unspecified severity; R25.2 Cramp and spasm; E11.42 Type 2 diabetes mellitus with diabetic polyneuropathy; I25.10 Atherosclerotic heart disease of native coronary artery without angina pectoris; E78.00 Pure hypercholesterolemia, unspecified; I10 Essential (primary) hypertension; I25.2 Old myocardial infarction; F15.90 Other stimulant use, unspecified, uncomplicated; Z98.890 Other specified postprocedural states; Z60.2 Problems related to living alone; Z59.0 Homelessness; Z56.0 Unemployment, unspecified; Z79.4 Long term (current) use of insulin; Z79.2 Long term (current) use of antibiotics; Z79.899 Other long term (current) drug therapy
CPT/HCPCS: 96372; 97597; 99285; J1885

== ENCOUNTER 2018-10-14 00:52 | Inpatient (IN) | payer MEDICAID ==
[~2018-10-14] VITALS: Ht 177.8 cm; Wt 64.2 kg
[2018-10-14] VITALS (14 sets, daily range): BP systolic 99–132; BP diastolic 54–78
[~2018-10-14 00:52] MED LIST changes: -METR-159 PO
[2018-10-14] MEDS ORDERED: normal saline 1000ML IV soln IV ONE (01:00)
[2018-10-14 01:24] LABS: RED BLOOD COUNT 2.68 X10'6 (4.70-6.10); WHITE BLOOD COUNT 4.8 X10'3 (4.5-11.0)
[2018-10-14] MEDS ORDERED: morphine 4 MG/ML inj SYRINge IV ONE (01:25)
[2018-10-14 01:26] LABS: INR 1.2 INR; PARTIAL THROMBOPLASTIN TIME 29 SECONDS (22-32)
[2018-10-14 01:27] LABS: ALANINE AMINOTRANSFERASE 24 U/L (12-78); ALBUMIN 2.5 G/DL (3.4-5.0); ALBUMIN/GLOBULIN RATIO 0.5 (1.1-1.5); ALKALINE PHOSPHATASE 127 IU/L (46-116); ANION GAP 7 (8-16); ASPARTATE AMINO TRANSFERASE 37 U/L (10-37); BILIRUBIN,TOTAL 0.6 MG/DL (0.1-1.0); BLOOD UREA NITROGEN 43 MG/DL (7-18); BUN/CREATININE RATIO 37.7 (5.4-32.0); CALCIUM 7.7 MG/DL (8.5-10.1); CHLORIDE 94 MMOL/L (99-107); CREATININE 1.14 MG/DL (0.60-1.10); GLUCOSE 209 MG/DL (70-104); HEMATOCRIT 21.9 % (42.0-52.0); LIPASE 275 U/L (73-393); MEAN CORPUSCULAR HEMOGLOBIN 26.2 PG (27.0-31.0); MEAN PLATELET VOLUME 7.3 FL (7.4-10.4); NEUTROPHILS % (AUTO) 68.7 % (42-75); PLATELET COUNT 239 X10'3 (140-440); POTASSIUM 5.9 MMOL/L (3.5-5.1); RED CELL DISTRIBUTION WIDTH 18.4 % (11.5-14.5); SODIUM 125 MMOL/L (135-145); TOTAL CARBON DIOXIDE 24.2 MMOL/L (24-32); TOTAL PROTEIN 7.8 G/DL (6.4-8.2); eGFR 69 ML/MIN
[2018-10-14 01:28] LABS: BASOPHILS # (AUTO) 0.1 X10'3 (0-0.2); BASOPHILS % (AUTO) 1.4 % (0-1); EOSINOPHILS # (AUTO) 0.1 X10'3 (0-0.9); EOSINOPHILS % (AUTO) 2.8 % (0-6); LYMPHOCYTES # (AUTO) 0.9 X10'3 (1.1-4.8); LYMPHOCYTES % (AUTO) 18.9 % (21-51); MONOCYTES # (AUTO) 0.4 X10'3 (0-0.9); MONOCYTES % (AUTO) 8.2 % (2-12); NEUTROPHILS # (AUTO) 3.3 X10'3 (1.8-7.7)
[2018-10-14 01:36] LABS: CLARITY,URINE SLIGHTLY CLOUDY (Clear); COLOR,URINE YELLOW (Yellow); GLUCOSE, URINE NEGATIVE (Neg); KETONES,URINE NEGATIVE (Neg); LEUKOCYTE ESTERASE ,URINE TRACE (Neg); NITRITES, URINE NEGATIVE (Neg); OCCULT BLOOD,URINE LARGE (Neg); PH,URINE 5.5 (4.8-8.0); PROTEIN,URINE 30 mg/dl (Neg); UROBILINOGEN,URINE 0.2 E.U/dL (0.2-1.0)
[2018-10-14 01:40] LABS: UA COLLECTION TYPE CLN CATCH MIDSTREAM
[2018-10-14] MEDS ORDERED: pantoprazole IV 80 MG in normal saline 100ml IV soln 100 ML IV ONE ×4 (01:40)
[2018-10-14] MEDS ORDERED: octreotide inj. 1,250 MCG in normal saline 250ml IV soln 250 ML IV ONE (01:40)
[2018-10-14] MEDS ORDERED: proCHLORperazine 10 MG/2 ml inj IV ONE (01:40)
[2018-10-14] MEDS ORDERED: sodium polystyrene sulfonate 15gm/60ml oral suspension PO ONE (01:40)
[2018-10-14 01:44] LABS: BACTERIA,URINE 2+ /HPF (Neg); CELLULAR CAST 0-4 /LPF (NEGATIVE); COARSE GRANULAR CAST 0-3 /LPF (NEGATIVE); FINE GRANULAR CAST 0-3 /LPF (NEGATIVE); HYALINE CASTS 0-3 /LPF (NEGATIVE); MUCUS STRANDS FEW /LPF (Neg); SQUAMOUS EPITHELIAL CELL,UR FEW /LPF (FEW)
[2018-10-14] MEDS ORDERED: pantoprazole 40MG/NS 100ML BAG 100 ML IV SCH (01:50)
[2018-10-14] MEDS ORDERED: pantoprazole 40 MG vial IV ONE (01:50)
[2018-10-14] MEDS ORDERED: haloperidol 5mg tablet PO PRN ×2 (02:20→11:20)
[2018-10-14] MEDS ORDERED: haloperidol lactate 5mg/ml inj IM PRN ×2 (02:20→11:20)
[2018-10-14] MEDS ORDERED: magnesium hydroxide 30ml (MOM) UD suspension PO PRN ×2 (02:20→11:20)
[2018-10-14] MEDS ORDERED: MESSAGE TO PHARMACY PO ONE (02:20)
[2018-10-14] MEDS ORDERED: thiamine inj. 100 MG in normal saline 100ml IV soln 100 ML IV ONE (02:20)
[2018-10-14] MEDS: octreotide inj. 1,250 MCG in normal saline 250ml IV soln 243.75 ML IV SCH (02:20)
[2018-10-14] MEDS ORDERED: dextrose ORAL solution 15 GM/59 ML bottle PO PRN (02:20)
[2018-10-14] MEDS ORDERED: ondansetron/PF 4mg/2ml inj IV PRN ×2 (02:20→11:20)
[2018-10-14] MEDS ORDERED: dextrose 50%-water 50ml dispensing syringe IV PRN ×2 (02:20→11:20)
[2018-10-14] MEDS ORDERED: mag hydrox/Alum hydrox/simeth 30ml oral suspension PO PRN ×2 (02:20→11:20)
[2018-10-14] MEDS ORDERED: octreotide 100mcg/1 ml ampule IV ONE (02:20)
[2018-10-14] MEDS ORDERED: acetaminophen 325mg tablet PO PRN ×4 (02:20→11:20)
[2018-10-14] MEDS ORDERED: tranexamic acid 100mg/ml inj. IV ONE (02:20)
[2018-10-14] MEDS ORDERED: glucagon, human recombinant 1mg kit SUBCUT PRN (02:20)
--- NOTE | 2018-10-14 02:26 | NUR ---
LAB CALLED SAYING PT BLOOD POSITIVE FOR 2 ANTIBODIES. CALL MADE TO [facility] R/T AVAILABILITY; NONE. WILL BE SEVERAL HRS BEFORE BLOOD AVAILABLE. PRIMARY RN SHYAM NOTIFIED.
[2018-10-14] MEDS ORDERED: thiamine 100mg/ml 2ml inj. IV ONE (02:35)
[2018-10-14 02:53] LABS: HEMOGLOBIN A1C 5.8 % (4.5-6.2)
[2018-10-14] MEDS ORDERED: FOLI1TAB16 PO (03:13)
[2018-10-14] MEDS ORDERED: SENN-145 PO (03:13)
[2018-10-14] MEDS ORDERED: THIA100T70 PO (03:13)
[2018-10-14] MEDS ORDERED: FLO0.4C PO (03:13)
[2018-10-14] MEDS ORDERED: PANT-47 PO (03:13)
[2018-10-14] MEDS ORDERED: ZAR2.5T PO (03:13)
[2018-10-14] MEDS ORDERED: NAPR-56 PO (03:13)
[2018-10-14] MEDS ORDERED: HYDR-3927 PO (03:13)
[2018-10-14] MEDS ORDERED: BUPR1FIL3 SL (03:13)
[2018-10-14] MEDS ORDERED: GABA600T13 PO (03:13)
[2018-10-14] MEDS ORDERED: DULO-31 PO (03:13)
[2018-10-14] MEDS ORDERED: ESCI10TA PO (03:13)
--- NOTE | 2018-10-14 03:52 | NUR ---
MD LALA AWARE OF BLOOD BANK PROBLEMS,
[2018-10-14] MEDS: pantoprazole 40MG/NS 100ML BAG 100 ML IV SCH ×4 (06:51→20:39)
--- NOTE | 2018-10-14 07:26 | NUR ---
PT HAD LOOSE BLOODY STOOL, Addendum: 10/14/18 at 0727 by ANGELINA APPROX 100 CC. DARK IN COLOR. I RECONTACTED BLOOD BANK WHO IS CURRENTLY SEARCHING FOR COMPATIBLE BLOOD, PER BLOOD BANK THEY "MAY HAVE TO GET BLOOD FROM [facility]" WHICH MEANS IT STILL HASN'T BEEN ORDERED. BLOOD BANK AWARE OF PT'S CRITICAL LAB VALUES.
--- NOTE | 2018-10-14 08:31 | NUR ---
PER MD LALA NO NEED AT THIS TIME TO TREAT POTASSIUM LEVEL DUE TO PATIENTS CURRENT LOOSE STOOL.
[2018-10-14 08:38] LABS: BASOPHILS # (AUTO) 0.1 X10'3 (0-0.2); BASOPHILS % (AUTO) 1.3 % (0-1); EOSINOPHILS # (AUTO) 0.1 X10'3 (0-0.9); EOSINOPHILS % (AUTO) 1.7 % (0-6); LYMPHOCYTES # (AUTO) 0.9 X10'3 (1.1-4.8); LYMPHOCYTES % (AUTO) 23.1 % (21-51); MEAN CORPUSCULAR HEMOGLOBIN 27.3 PG (27.0-31.0); MEAN CORPUSCULAR HGB CONC 33.8 g/dL (33.0-36.5); MEAN CORPUSCULAR VOLUME 80.5 FL (78-98); MEAN PLATELET VOLUME 6.8 FL (7.4-10.4); MONOCYTES # (AUTO) 0.4 X10'3 (0-0.9); MONOCYTES % (AUTO) 9.1 % (2-12); NEUTROPHILS # (AUTO) 2.6 X10'3 (1.8-7.7); NEUTROPHILS % (AUTO) 64.8 % (42-75); PLATELET COUNT 197 X10'3 (140-440); RED BLOOD COUNT 2.22 X10'6 (4.70-6.10); RED CELL DISTRIBUTION WIDTH 19.6 % (11.5-14.5)
[2018-10-14 08:41] LABS: HEMOGLOBIN 6.1 g/dl (14.0-17.9)
[2018-10-14 08:42] LABS: HEMATOCRIT 17.9 % (42.0-52.0)
[2018-10-14 08:49] LABS: ALANINE AMINOTRANSFERASE 20 U/L (12-78); ALBUMIN 2.4 G/DL (3.4-5.0); ALBUMIN/GLOBULIN RATIO 0.5 (1.1-1.5); ALKALINE PHOSPHATASE 116 IU/L (46-116); ANION GAP 7 (8-16); ASPARTATE AMINO TRANSFERASE 29 U/L (10-37); BILIRUBIN,TOTAL 0.4 MG/DL (0.1-1.0); BLOOD UREA NITROGEN 53 MG/DL (7-18); BUN/CREATININE RATIO 39.8 (5.4-32.0); CALCIUM 7.4 MG/DL (8.5-10.1); CHLORIDE 99 MMOL/L (99-107); CREATININE 1.33 MG/DL (0.60-1.10); GLUCOSE 152 MG/DL (70-104); SODIUM 128 MMOL/L (135-145); TOTAL CARBON DIOXIDE 22.1 MMOL/L (24-32); TOTAL PROTEIN 7.2 G/DL (6.4-8.2); eGFR 58 ML/MIN
[2018-10-14 09:09] LABS: POTASSIUM 7.7 MMOL/L (3.5-5.1)
--- NOTE | 2018-10-14 09:10 | NUR ---
SPOKE WITH DR. DONALDSON, LABS REPORTED OF HBG 6.1 AND K=7.7
[2018-10-14] MEDS ORDERED: fentaNYL/PF 50MCG/1 ML 2ML syringe IV ONE (09:15)
[2018-10-14] MEDS ORDERED: insulin regular, human 10 units/0.1 ml syringe IV ONE (09:15)
[2018-10-14] MEDS ORDERED: dextrose 50%-water 50ml dispensing syringe IV ONE (09:15)
[2018-10-14] MEDS ORDERED: calcium gluconate inj. 1 GM in normal saline 100ml IV soln 100 ML IV ONE (09:15)
--- NOTE | 2018-10-14 09:27 | NUR ---
DR. DONALDSON SPOKE WITH ER MD SHERMAN REGARDING PT. ER MD SHERMAN TO PAGE GLASS FURNACE TENDER REGARDING PT ADMISSION
--- NOTE | 2018-10-14 09:30 | NUR ---
KAYEXALATE TO BE NON ADMINISTERED PER VO DR SHERMAN. MD HAD ORDERS CALCIUM GLUCANATE, INSULIN MED ORDERS BUT ARE TO BE HELD UNTIL K+ REDRAWN AND K VALUE CONFIRMED.
[2018-10-14 10:03] LABS: ALANINE AMINOTRANSFERASE 17 U/L (12-78); ALBUMIN 2.2 G/DL (3.4-5.0); ALBUMIN/GLOBULIN RATIO 0.5 (1.1-1.5); ALKALINE PHOSPHATASE 109 IU/L (46-116); ANION GAP 8 (8-16); ASPARTATE AMINO TRANSFERASE 31 U/L (10-37); BILIRUBIN,TOTAL 0.3 MG/DL (0.1-1.0); BLOOD UREA NITROGEN 50 MG/DL (7-18); BUN/CREATININE RATIO 39.4 (5.4-32.0); CALCIUM 7.2 MG/DL (8.5-10.1); CHLORIDE 100 MMOL/L (99-107); CREATININE 1.27 MG/DL (0.60-1.10); GLUCOSE 154 MG/DL (70-104); SODIUM 129 MMOL/L (135-145); TOTAL CARBON DIOXIDE 21.3 MMOL/L (24-32); TOTAL PROTEIN 6.7 G/DL (6.4-8.2); eGFR 61 ML/MIN
[2018-10-14 10:05] LABS: POTASSIUM 7.7 MMOL/L (3.5-5.1)
--- NOTE | 2018-10-14 10:14 | NUR ---
DR. BARNETT CALLED AND INFORMED PT K LEVEL WAS VERIFIED AND IS 7.7. INQUIRED IF PT TO RECEIVE CALCIUM, INSULIN, DEXTROSE. REGULATORY AGENCY DIRECTOR TO REVIEW ORDERS. REGULATORY AGENCY DIRECTOR INFORMED PT RECEIVED 1 UNIT PRBCS AND 2 UNIT CURRENTLY UNAVAILABLE PT WITH MANY ANTIBODIES AND BLOOD MAY HAVE TO COME OLD [place]
[2018-10-14] MEDS: thiamine 100mg tablet PO SCH (11:20)
[2018-10-14] MEDS: folic acid 1mg tablet PO SCH (11:20)
[2018-10-14] MEDS: sodium bicarbonate (8.4%) inj. 100 MEQ in dextrose 5%-water 1,000 ML IV SCH ×2 (11:45→20:33)
[2018-10-14] MEDS: normal saline 1000ml 1,000 ML IV SCH (11:54)
[2018-10-14] MEDS: LORazepam 2 mg/ml vial IV PRN ×2 (12:12→20:40)
--- NOTE | 2018-10-14 12:23 | NUR ---
CALLED DR. STOREY AND INFORMED PT WITH LIQUID STOOL. REPORTED PT REPORTS HE IS CURRENTLY SUPPOSED TO BE TAKING ORAL VANCO FOR 5 MORE DAYS HE IS BEING TREATED FOR C-DIFF. RECEIVED VO TO START VANCOMYCIN 250MG PO Q 8 HOURS AND OBTAIN STOOL FOR SAMPLE TO TEST FOR C-DIFF. STOOL HAS BEEN OBTAINED, PT PLACED IN ISOLATION FOR C-DIFF.
[2018-10-14 12:41] LABS: ALBUMIN 2.2 G/DL (3.4-5.0); ANION GAP 8 (8-16); BLOOD UREA NITROGEN 55 MG/DL (7-18); BUN/CREATININE RATIO 38.2 (5.4-32.0); CALCIUM 7.8 MG/DL (8.5-10.1); CHLORIDE 102 MMOL/L (99-107); CREATININE 1.44 MG/DL (0.60-1.10); GLUCOSE 144 MG/DL (70-104); POTASSIUM 5.4 MMOL/L (3.5-5.1); SODIUM 132 MMOL/L (135-145); TOTAL CARBON DIOXIDE 21.6 MMOL/L (24-32); eGFR 53 ML/MIN
[2018-10-14 13:11] LABS: MEAN CORPUSCULAR HEMOGLOBIN 27.7 PG (27.0-31.0); MEAN CORPUSCULAR HGB CONC 33.6 g/dL (33.0-36.5); MEAN CORPUSCULAR VOLUME 82.5 FL (78-98); MEAN PLATELET VOLUME 7.4 FL (7.4-10.4); PLATELET COUNT 183 X10'3 (140-440); RED BLOOD COUNT 2.48 X10'6 (4.70-6.10); RED CELL DISTRIBUTION WIDTH 19.7 % (11.5-14.5); WHITE BLOOD COUNT 3.8 X10'3 (4.5-11.0)
[2018-10-14 13:13] LABS: HEMATOCRIT 20.5 % (42.0-52.0); HEMOGLOBIN 6.9 g/dl (14.0-17.9)
[2018-10-14 14:39] LABS: C DIFF ANTIGEN NEGATIVE (NEGATIVE); C DIFF SPECIMEN=DIARRHEA? ACCEPTABLE; C DIFFICILE TOXINS A&B NEGATIVE (Neg)
--- NOTE | 2018-10-14 14:42 | NUR ---
Pt taken to GI lab. Pt left with second unit of PRBCs infusing.
[2018-10-14] MEDS ORDERED: MIDAZolam 5mg/5ml vial ONE ×2 (14:47→14:48)
[2018-10-14] MEDS ORDERED: fentaNYL/PF 50MCG/1 ML 2ML syringe ONE (14:47)
[2018-10-14] MEDS ORDERED: LIDOcaine Viscous 15ml cup ONE (14:48)
[2018-10-14] MEDS: vancomycin 250MG/10ML UD oral solution 10ML BOTTLE PO SCH (16:00)
[2018-10-14] MEDS ORDERED: NAPR-1166 PO (17:12)
[2018-10-14 20:54] LABS: HEMATOCRIT 24.7 % (42.0-52.0); HEMOGLOBIN 8.3 g/dl (14.0-17.9); MEAN CORPUSCULAR HEMOGLOBIN 28.5 PG (27.0-31.0); MEAN CORPUSCULAR HGB CONC 33.6 g/dL (33.0-36.5); MEAN CORPUSCULAR VOLUME 84.8 FL (78-98); MEAN PLATELET VOLUME 7.5 FL (7.4-10.4); PLATELET COUNT 167 X10'3 (140-440); RED BLOOD COUNT 2.91 X10'6 (4.70-6.10); RED CELL DISTRIBUTION WIDTH 18.7 % (11.5-14.5); WHITE BLOOD COUNT 3.7 X10'3 (4.5-11.0)
[2018-10-14 20:59] LABS: ALBUMIN 2.5 G/DL (3.4-5.0); ANION GAP 7 (8-16); BLOOD UREA NITROGEN 51 MG/DL (7-18); BUN/CREATININE RATIO 36.4 (5.4-32.0); CALCIUM 7.9 MG/DL (8.5-10.1); CHLORIDE 102 MMOL/L (99-107); GLUCOSE 168 MG/DL (70-104); POTASSIUM 5.9 MMOL/L (3.5-5.1); SODIUM 134 MMOL/L (135-145); TOTAL CARBON DIOXIDE 24.6 MMOL/L (24-32); eGFR 55 ML/MIN
[2018-10-14] MEDS ORDERED: temazepam 15mg capsule PO PRN (21:00)
--- NOTE | 2018-10-14 22:21 | NUR ---
Patient resting comfortably in bed and in no distress.
[2018-10-14] MEDS: insulin glargine (Lantus) pen - multi-dose SQ SCH (22:51)
--- NOTE | 2018-10-14 23:02 | NUR ---
Contacted September regarding patient's potassium of 5.9 which is elevated from his previous draw. There is another BMP to be drawn in 30 minutes and she states she will review the patient's chart and evaluate the next potassium level.
[2018-10-15] VITALS (7 sets, daily range): BP systolic 123–164; BP diastolic 69–87
[2018-10-15] MEDS: pantoprazole 40MG/NS 100ML BAG 100 ML IV SCH ×4 (00:12→22:12)
[2018-10-15] MEDS: vancomycin 250MG/10ML UD oral solution 10ML BOTTLE PO SCH ×3 (00:12→23:02)
--- NOTE | 2018-10-15 00:20 | NUR ---
Patient resting comfortably in bed. Medications provided and room cleaned. Patient updated on POC.
[2018-10-15 00:36] LABS: ALBUMIN 2.3 G/DL (3.4-5.0); ANION GAP 5 (8-16); BLOOD UREA NITROGEN 44 MG/DL (7-18); BUN/CREATININE RATIO 31.7 (5.4-32.0); CALCIUM 8.1 MG/DL (8.5-10.1); CHLORIDE 101 MMOL/L (99-107); CREATININE 1.39 MG/DL (0.60-1.10); GLUCOSE 277 MG/DL (70-104); SODIUM 132 MMOL/L (135-145); TOTAL CARBON DIOXIDE 25.7 MMOL/L (24-32); eGFR 55 ML/MIN
[2018-10-15 00:40] LABS: POTASSIUM 6.4 MMOL/L (3.5-5.1)
--- NOTE | 2018-10-15 00:44 | NUR ---
Patient's potassium level 6.4, which is elevated still from previously. September Tona notified and states she is placing orders now.
[2018-10-15] MEDS ORDERED: calcium gluconate inj. 1 GM in normal saline 100ml IV soln 90 ML IV ONE (00:45)
[2018-10-15] MEDS ORDERED: albuterol 2.5 MG/3 ML nebule CONTNEB ONE (00:45)
[2018-10-15] MEDS ORDERED: insulin regular, human 10 units/0.1 ml syringe IV ONE (00:45)
[2018-10-15] MEDS ORDERED: dextrose 50%-water 50ml dispensing syringe IV ONE (00:45)
--- NOTE | 2018-10-15 01:30 | NUR ---
RT paged for nebulizer treatment as part of hyperkalemia medication regiment.
--- NOTE | 2018-10-15 02:05 | NUR ---
Blood still unavailable from blood bank. They state when it arrives they will contact ED for transfusion.
--- NOTE | 2018-10-15 02:46 | NUR ---
Patient resting comfortably. Spoke to September who requests a phone call if potassium continues to rise despite treatment. Next draw will be with AM labs which she was made aware of.
--- NOTE | 2018-10-15 03:06 | NUR ---
Patient noted to become tachycardic despite sleeping comfortably. Blood sugar checked due to recent d50 and 10 units of insulin given for hyperkalemia. Blood sugar is found to be 54 and an amp of d50 is again provided. Will closely monitor blood sugar until it stabilizes.
[2018-10-15] MEDS: dextrose 50%-water 50ml dispensing syringe IV PRN ×3 (03:08→18:17)
--- NOTE | 2018-10-15 03:08 | NUR ---
Paris notified of blood sugar level.
[2018-10-15 03:41] LABS: BASOPHILS % (AUTO) 1.3 % (0-1); EOSINOPHILS # (AUTO) 0.1 X10'3 (0-0.9); EOSINOPHILS % (AUTO) 3.9 % (0-6); LYMPHOCYTES # (AUTO) 0.9 X10'3 (1.1-4.8); LYMPHOCYTES % (AUTO) 29.7 % (21-51); MEAN CORPUSCULAR HEMOGLOBIN 28.4 PG (27.0-31.0); MEAN CORPUSCULAR HGB CONC 33.7 g/dL (33.0-36.5); MEAN CORPUSCULAR VOLUME 84.4 FL (78-98); MEAN PLATELET VOLUME 7.1 FL (7.4-10.4); MONOCYTES # (AUTO) 0.4 X10'3 (0-0.9); MONOCYTES % (AUTO) 11.6 % (2-12); NEUTROPHILS # (AUTO) 1.6 X10'3 (1.8-7.7); NEUTROPHILS % (AUTO) 53.5 % (42-75); PLATELET COUNT 156 X10'3 (140-440); RED BLOOD COUNT 2.35 X10'6 (4.70-6.10); RED CELL DISTRIBUTION WIDTH 18.9 % (11.5-14.5); WHITE BLOOD COUNT 3.1 X10'3 (4.5-11.0)
[2018-10-15 03:45] LABS: INR 1.2 INR; PROTHROMBIN TIME 12.4 SECONDS (9.0-12.0)
[2018-10-15] MEDS: octreotide inj. 1,250 MCG in normal saline 250ml IV soln 243.75 ML IV SCH (03:46)
[2018-10-15 03:48] LABS: ALBUMIN 2.1 G/DL (3.4-5.0); ANION GAP 8 (8-16); BLOOD UREA NITROGEN 44 MG/DL (7-18); BUN/CREATININE RATIO 33.6 (5.4-32.0); CALCIUM 8.1 MG/DL (8.5-10.1); CHLORIDE 103 MMOL/L (99-107); CREATININE 1.31 MG/DL (0.60-1.10); GLUCOSE 127 MG/DL (70-104); LIPASE 270 U/L (73-393); MAGNESIUM 2.1 MG/DL (1.5-2.4); PHOSPHORUS 3.7 MG/DL (2.3-4.5); POTASSIUM 5.1 MMOL/L (3.5-5.1); SODIUM 137 MMOL/L (135-145); TOTAL CARBON DIOXIDE 25.7 MMOL/L (24-32); eGFR 59 ML/MIN
[2018-10-15 03:49] LABS: HEMATOCRIT 19.8 % (42.0-52.0); HEMOGLOBIN 6.7 g/dl (14.0-17.9)
--- NOTE | 2018-10-15 03:54 | NUR ---
Contacted September regarding patient's critical H&H. She was informed that we are still waiting for a special blood product from [place]. No new medication orders. She requests that the blood is transfused as soon as it is available.
[2018-10-15] MEDS: sodium bicarbonate (8.4%) inj. 100 MEQ in dextrose 5%-water 1,000 ML IV SCH ×3 (05:21→22:12)
--- NOTE | 2018-10-15 06:44 | NUR ---
Patient situation and current condition called to VIRIDIANA Collins and time allowed for questions. Patient will go up to the floor with day shift staff with all of their belongings.
[2018-10-15] MEDS ORDERED: carvedilol 6.25mg tablet PO SCH (08:00)
[2018-10-15] MEDS: thiamine 100mg tablet PO SCH (08:48)
[2018-10-15] MEDS: folic acid 1mg tablet PO SCH (08:49)
[2018-10-15] MEDS: LORazepam 1 MG tablet PO PRN ×2 (08:50→12:49)
--- NOTE | 2018-10-15 11:52 | NUR ---
Paged Dr. Kapoor PAGER ID: [phone] MESSAGE: rm [id number]. Ronaldo Mai. lab would like you to call them about transfusion services at ext [phone]. thank you Doris KEMP
[2018-10-15 12:09] LABS: ALBUMIN 2.2 G/DL (3.4-5.0); ANION GAP 2 (8-16); BLOOD UREA NITROGEN 38 MG/DL (7-18); BUN/CREATININE RATIO 30.6 (5.4-32.0); CALCIUM 7.9 MG/DL (8.5-10.1); CHLORIDE 100 MMOL/L (99-107); CREATININE 1.24 MG/DL (0.60-1.10); GLUCOSE 232 MG/DL (70-104); SODIUM 131 MMOL/L (135-145); TOTAL CARBON DIOXIDE 28.7 MMOL/L (24-32); eGFR 63 ML/MIN
[2018-10-15 12:10] LABS: POTASSIUM 6.2 MMOL/L (3.5-5.1)
--- NOTE | 2018-10-15 12:16 | NUR ---
wagnerd Antwon PAGER ID: [phone] MESSAGE: [id number]. Ronaldo Mai. critical K at 6.2. please advise. thank you Doris KEMP. ext [phone]
[2018-10-15 12:49] LABS: BASOPHILS % (AUTO) 0.7 % (0-1); EOSINOPHILS # (AUTO) 0.2 X10'3 (0-0.9); EOSINOPHILS % (AUTO) 5.3 % (0-6); HEMOGLOBIN 7.1 g/dl (14.0-17.9); LYMPHOCYTES # (AUTO) 0.6 X10'3 (1.1-4.8); LYMPHOCYTES % (AUTO) 18.4 % (21-51); MEAN CORPUSCULAR HEMOGLOBIN 28.6 PG (27.0-31.0); MEAN CORPUSCULAR HGB CONC 34.1 g/dL (33.0-36.5); MEAN CORPUSCULAR VOLUME 84.1 FL (78-98); MEAN PLATELET VOLUME 7.2 FL (7.4-10.4); MONOCYTES # (AUTO) 0.2 X10'3 (0-0.9); MONOCYTES % (AUTO) 6.8 % (2-12); NEUTROPHILS # (AUTO) 2.4 X10'3 (1.8-7.7); NEUTROPHILS % (AUTO) 68.8 % (42-75); PLATELET COUNT 150 X10'3 (140-440); RED BLOOD COUNT 2.47 X10'6 (4.70-6.10); RED CELL DISTRIBUTION WIDTH 19.6 % (11.5-14.5); WHITE BLOOD COUNT 3.4 X10'3 (4.5-11.0)
[2018-10-15 12:55] LABS: HEMATOCRIT 20.8 % (42.0-52.0)
[2018-10-15] MEDS ORDERED: iohexol 350MG/ML 100ml bottle IV ONE (13:32)
[2018-10-15] MEDS: insulin Lispro (HumaLOG) vial - multi-dose SQ SCH (13:51)
[2018-10-15 14:20] LABS: HIV ANTIBODY 1&2 RAPID NON-REACTIVE (Neg)
[2018-10-15] MEDS ORDERED: sodium polystyrene sulfonate 15gm/60ml oral suspension PO ONE (18:00)
--- NOTE | 2018-10-15 18:00 | NUR ---
Patient in room PCU 3018. I have received report from Mandeep KEMP and had the opportunity to ask questions and assume patient care.
--- NOTE | 2018-10-15 19:23 | NUR ---
Pt. found in unable to follow directions, combative, and pulling lines. Blood Glucose <10. Dr. Arango is informed. Restraints are ordered, hypoglycemic protocol is ordered. Serial D 50 injections are given, Pt. became responsive but remains uncooperative and remains in soft wrist and ankle restraints for safety. Bedside glucose monitoring Q 15 with coverage as outlined by hypoglycemic protocol.
--- NOTE | 2018-10-15 19:33 | NUR ---
Patient report given to Arpita KEMP , questions answered & plan of care reviewed. Blood Transfusion and Hypoglycemia needs are reported.
[2018-10-15] MEDS: carvedilol 6.25mg tablet PO SCH (20:00)
[2018-10-15] MEDS: lactobacillus rhamnosus 10,000 MMU CELLS/CAPSULE PO SCH (20:00)
--- NOTE | 2018-10-15 20:20 | NUR ---
Day shift has placed pt in soft restraints due to him getting combative and pulling IV out. His BG for them at dinner was <10. After multiple doses of Glucose IV and stabilization of BG, pt was A&O x3 cooperative and restraints removed.
--- NOTE | 2018-10-15 20:20 | NUR ---
When this nurse first came on pt was having difficulty urinating and complaining of pain from not urinating. Call placed to Dr Looney and an order obtained for Queen Catheter placement. Pt began to be less confused and combative then he was able to use urinal and empty his bladder x 2. He stated he was having no difficulty or pain and this time and refused Queen Catheter placement. The pt shows no s/s of needing the catheter at this time as well.
[2018-10-15 20:32] LABS: ALBUMIN 2.4 G/DL (3.4-5.0); ANION GAP 5 (8-16); BLOOD UREA NITROGEN 33 MG/DL (7-18); BUN/CREATININE RATIO 28.4 (5.4-32.0); CALCIUM 8.2 MG/DL (8.5-10.1); CHLORIDE 99 MMOL/L (99-107); CREATININE 1.16 MG/DL (0.60-1.10); GLUCOSE 127 MG/DL (70-104); POTASSIUM 4.8 MMOL/L (3.5-5.1); SODIUM 132 MMOL/L (135-145); TOTAL CARBON DIOXIDE 27.7 MMOL/L (24-32); eGFR 68 ML/MIN
[2018-10-15 21:59] LABS: TOTAL PROTEIN,URINE RANDOM 13.2 MG/DL
[2018-10-15] MEDS: insulin glargine (Lantus) pen - multi-dose SQ SCH (23:01)
[2018-10-16] MEDS: pantoprazole 40MG/NS 100ML BAG 100 ML IV SCH (01:17)
[2018-10-16 02:00] VITALS: BP 174/88
[2018-10-16] MEDS: LORazepam 1 MG tablet PO PRN ×6 (03:11→22:55)
[2018-10-16 03:18] LABS: BASOPHILS % (AUTO) 0.3 % (0-1); EOSINOPHILS # (AUTO) 0.1 X10'3 (0-0.9); HEMATOCRIT 27.5 % (42.0-52.0); HEMOGLOBIN 8.9 g/dl (14.0-17.9); LYMPHOCYTES # (AUTO) 0.2 X10'3 (1.1-4.8); LYMPHOCYTES % (AUTO) 6.5 % (21-51); MEAN CORPUSCULAR HEMOGLOBIN 27.7 PG (27.0-31.0); MEAN CORPUSCULAR HGB CONC 32.3 g/dL (33.0-36.5); MEAN CORPUSCULAR VOLUME 85.9 FL (78-98); MEAN PLATELET VOLUME 7.7 FL (7.4-10.4); MONOCYTES # (AUTO) 0.2 X10'3 (0-0.9); MONOCYTES % (AUTO) 5.2 % (2-12); PLATELET COUNT 157 X10'3 (140-440); RED CELL DISTRIBUTION WIDTH 17.8 % (11.5-14.5); WHITE BLOOD COUNT 3.5 X10'3 (4.5-11.0)
[2018-10-16 03:21] LABS: INR 1.1 INR; PROTHROMBIN TIME 11.4 SECONDS (9.0-12.0)
[2018-10-16 03:23] LABS: ALBUMIN 2.6 G/DL (3.4-5.0); AMYLASE 38 U/L (25-115); ANION GAP 6 (8-16); BLOOD UREA NITROGEN 26 MG/DL (7-18); BUN/CREATININE RATIO 21.5 (5.4-32.0); CALCIUM 8.2 MG/DL (8.5-10.1); CHLORIDE 99 MMOL/L (99-107); CREATININE 1.21 MG/DL (0.60-1.10); GLUCOSE 243 MG/DL (70-104); LIPASE 235 U/L (73-393); MAGNESIUM 1.7 MG/DL (1.5-2.4); PHOSPHORUS 3.3 MG/DL (2.3-4.5); POTASSIUM 4.8 MMOL/L (3.5-5.1); SODIUM 134 MMOL/L (135-145); TOTAL CARBON DIOXIDE 29.4 MMOL/L (24-32); eGFR 65 ML/MIN
[2018-10-16 06:00] VITALS: BP 163/66
--- NOTE | 2018-10-16 06:00 | NUR ---
Problems reprioritized. Patient report given, questions answered & plan of care reviewed with Mandeep KEMP.
[2018-10-16] MEDS: octreotide inj. 1,250 MCG in normal saline 250ml IV soln 243.75 ML IV SCH (06:40)
--- NOTE | 2018-10-16 06:54 | NUR ---
Patient in room PCU 3018. I have received report from Arpita KEMP and had the opportunity to ask questions and assume patient care.
[2018-10-16] MEDS: thiamine 100mg tablet PO SCH (08:29)
[2018-10-16] MEDS: folic acid 1mg tablet PO SCH (08:30)
[2018-10-16] MEDS: lactobacillus rhamnosus 10,000 MMU CELLS/CAPSULE PO SCH ×2 (08:30→19:33)
[2018-10-16] MEDS: vancomycin 250MG/10ML UD oral solution 10ML BOTTLE PO SCH ×3 (08:30→23:54)
[2018-10-16] MEDS: carvedilol 6.25mg tablet PO SCH ×2 (08:37→19:36)
--- NOTE | 2018-10-16 09:00 | NUR ---
paged PICC RN to start IV on pt. awaiting reply.
--- NOTE | 2018-10-16 09:57 | NUR ---
paged PICC RN again about IV start. awaiting response will try again later.
[2018-10-16 10:00] VITALS: BP 139/65
--- NOTE | 2018-10-16 10:36 | NUR ---
PAGER ID: [phone] MESSAGE: room [id number]. Ronaldo Mai. IVs keep infiltrating and difficult to start. Okay to start PICC? PICC RN at bedside. Thank you. Doris RN ext [phone]
--- NOTE | 2018-10-16 10:43 | NUR ---
paged Dr. Buckner PAGER ID: [phone] MESSAGE: rm [id number]. Jeffrey Mai. bicarb is 29. would you like to continue running the bicarb? thank you Doris KEMP. ext [phone]
[2018-10-16 11:14] LABS: HBSAG SCREEN Negative (Negative); HEPATITIS C ANTIBODY >11.0 s/co ratio (0.0-0.9)
[2018-10-16] MEDS: normal saline 1000ml 1,000 ML IV SCH (11:16)
[2018-10-16] MEDS ORDERED: LORazepam 2 mg/ml vial IV PRN (11:20)
[2018-10-16] MEDS ORDERED: HYDROXYZINE PAMOATE PO PRN (11:30)
[2018-10-16] MEDS ORDERED: sennosides 8.6mg tablet PO PRN (11:30)
[2018-10-16] MEDS ORDERED: hydrOXYzine 25 MG tablet PO PRN (11:40)
--- NOTE | 2018-10-16 12:31 | NUR ---
Melany Sapp from [facility] came in to discuss pt discharge. Pt is homeless and living at [facility]. He is paid up through the next couple of weeks. No one will be in the office until Friday10/20/18. Melany's cell # [phone] Office #: [phone]
[2018-10-16 14:00] VITALS: BP 123/61
[2018-10-16] MEDS ORDERED: non-formulary drug (Gabapentin 1 TAB) PO SCH (16:00)
[2018-10-16] MEDS: gabapentin 300mg capsule PO SCH ×2 (16:43→23:53)
[2018-10-16 18:00] VITALS: BP 137/62
--- NOTE | 2018-10-16 18:24 | NUR ---
Problems reprioritized. Patient report given, questions answered & plan of care reviewed with eLxi KEMP.
--- NOTE | 2018-10-16 18:48 | NUR ---
Patient in room PCU 3018. I have received report from Doris KEMP and had the opportunity to ask questions and assume patient care.
[2018-10-16] MEDS: pantoprazole 40mg Tablet.DR PO SCH (19:34)
[2018-10-16 22:00] VITALS: BP 140/66
[2018-10-16] MEDS: insulin glargine (Lantus) pen - multi-dose SQ SCH (23:06)
[2018-10-16] MEDS: HYDROcodone/acetaminophen 5mg/325mg tablet PO PRN (23:55)
[2018-10-17 02:00] VITALS: BP 136/52
[2018-10-17] MEDS: LORazepam 1 MG tablet PO PRN ×5 (02:54→21:27)
[2018-10-17] MEDS: HYDROcodone/acetaminophen 5mg/325mg tablet PO PRN ×4 (04:49→21:28)
[2018-10-17 05:27] LABS: INR 1.2 INR; PROTHROMBIN TIME 12.2 SECONDS (9.0-12.0)
[2018-10-17 05:32] LABS: ALBUMIN 2.5 G/DL (3.4-5.0); AMYLASE 30 U/L (25-115); ANION GAP 6 (8-16); BLOOD UREA NITROGEN 19 MG/DL (7-18); BUN/CREATININE RATIO 13.4 (5.4-32.0); CALCIUM 7.8 MG/DL (8.5-10.1); CHLORIDE 100 MMOL/L (99-107); CREATININE 1.42 MG/DL (0.60-1.10); GLUCOSE 72 MG/DL (70-104); LIPASE 143 U/L (73-393); MAGNESIUM 1.7 MG/DL (1.5-2.4); PHOSPHORUS 3.1 MG/DL (2.3-4.5); POTASSIUM 4.4 MMOL/L (3.5-5.1); SODIUM 135 MMOL/L (135-145); TOTAL CARBON DIOXIDE 28.9 MMOL/L (24-32); eGFR 54 ML/MIN
[2018-10-17 05:50] LABS: BASOPHILS % (AUTO) 0.8 % (0-1); EOSINOPHILS # (AUTO) 0.1 X10'3 (0-0.9); EOSINOPHILS % (AUTO) 2.2 % (0-6); HEMATOCRIT 24.5 % (42.0-52.0); HEMOGLOBIN 7.9 g/dl (14.0-17.9); LYMPHOCYTES # (AUTO) 0.6 X10'3 (1.1-4.8); LYMPHOCYTES % (AUTO) 22.6 % (21-51); MEAN CORPUSCULAR HEMOGLOBIN 27.9 PG (27.0-31.0); MEAN CORPUSCULAR HGB CONC 32.3 g/dL (33.0-36.5); MEAN CORPUSCULAR VOLUME 86.3 FL (78-98); MEAN PLATELET VOLUME 7.9 FL (7.4-10.4); MONOCYTES # (AUTO) 0.3 X10'3 (0-0.9); NEUTROPHILS # (AUTO) 1.8 X10'3 (1.8-7.7); NEUTROPHILS % (AUTO) 62.4 % (42-75); PLATELET COUNT 126 X10'3 (140-440); RED BLOOD COUNT 2.84 X10'6 (4.70-6.10); RED CELL DISTRIBUTION WIDTH 18.1 % (11.5-14.5); WHITE BLOOD COUNT 2.8 X10'3 (4.5-11.0)
--- NOTE | 2018-10-17 06:52 | NUR ---
Patient in room PCU 3018. I have received report from VIRIDIANA Paniagua and had the opportunity to ask questions and assume patient care. Patient resting comfortably at this time. Call light and items of frequent use in reach of patient.
--- NOTE | 2018-10-17 07:12 | NUR ---
Problems reprioritized. Patient report given, questions answered & plan of care reviewed with Lida KEMP.
[2018-10-17 07:43] LABS: ANISOCYTOSIS 2+; HYPOCHROMASIA 1+; PLATELET ESTIMATE DECREASED; TOTAL CELLS COUNTED 100
[2018-10-17 08:00] VITALS: BP 150/70
[2018-10-17] MEDS ORDERED: pantoprazole 40mg Tablet.DR PO SCH (08:00)
[2018-10-17] MEDS: octreotide inj. 1,250 MCG in normal saline 250ml IV soln 243.75 ML IV SCH (09:08)
[2018-10-17] MEDS: citalopram 20mg tablet PO SCH (09:08)
[2018-10-17] MEDS: lactobacillus rhamnosus 10,000 MMU CELLS/CAPSULE PO SCH ×2 (09:09→19:27)
[2018-10-17] MEDS: carvedilol 6.25mg tablet PO SCH ×2 (09:09→19:27)
[2018-10-17] MEDS: tamsulosin 0.4mg capsule PO SCH (09:10)
[2018-10-17] MEDS: duloxetine 30mg CAPSULE.DR PO SCH (09:10)
[2018-10-17] MEDS: pantoprazole 40mg Tablet.DR PO SCH ×2 (09:11→19:26)
[2018-10-17] MEDS: folic acid 1mg tablet PO SCH (09:11)
[2018-10-17] MEDS: gabapentin 300mg capsule PO SCH ×2 (09:11→16:16)
[2018-10-17] MEDS: vancomycin 250MG/10ML UD oral solution 10ML BOTTLE PO SCH ×2 (09:12→16:16)
[2018-10-17] MEDS: thiamine 100mg tablet PO SCH (09:12)
[2018-10-17] MEDS: metolazone 2.5mg tablet PO SCH (10:46)
[2018-10-17 12:04] VITALS: BP 137/62
[2018-10-17] MEDS: octreotide 100mcg/1 ml ampule SQ SCH (17:36)
[2018-10-17 18:00] VITALS: BP 141/72
--- NOTE | 2018-10-17 18:33 | NUR ---
Problems reprioritized. Patient report given, questions answered & plan of care reviewed with VIRIDIANA Paniagua.
--- NOTE | 2018-10-17 18:54 | NUR ---
Patient in room PCU 3018. I have received report from Lida KEMP and had the opportunity to ask questions and assume patient care.
[2018-10-17] MEDS: insulin glargine (Lantus) pen - multi-dose SQ SCH (21:22)
[2018-10-17 22:00] VITALS: BP 137/63
[2018-10-18] MEDS: gabapentin 300mg capsule PO SCH ×3 (00:19→16:00)
[2018-10-18] MEDS: vancomycin 250MG/10ML UD oral solution 10ML BOTTLE PO SCH ×3 (00:19→16:06)
[2018-10-18] MEDS: octreotide 100mcg/1 ml ampule SQ SCH ×3 (00:19→16:07)
[2018-10-18 02:00] VITALS: BP 136/73
[2018-10-18] MEDS: LORazepam 1 MG tablet PO PRN ×3 (03:22→19:04)
[2018-10-18] MEDS: HYDROcodone/acetaminophen 5mg/325mg tablet PO PRN ×4 (03:23→19:05)
[2018-10-18 06:11] LABS: ALBUMIN 2.3 G/DL (3.4-5.0); ANION GAP 7 (8-16); BLOOD UREA NITROGEN 19 MG/DL (7-18); BUN/CREATININE RATIO 14.1 (5.4-32.0); CALCIUM 7.9 MG/DL (8.5-10.1); CHLORIDE 99 MMOL/L (99-107); CREATININE 1.35 MG/DL (0.60-1.10); GLUCOSE 123 MG/DL (70-104); LIPASE 131 U/L (73-393); MAGNESIUM 1.7 MG/DL (1.5-2.4); PHOSPHORUS 3.8 MG/DL (2.3-4.5); POTASSIUM 4.3 MMOL/L (3.5-5.1); SODIUM 133 MMOL/L (135-145); TOTAL CARBON DIOXIDE 27.1 MMOL/L (24-32); eGFR 57 ML/MIN
[2018-10-18 06:14] LABS: BASOPHILS % (AUTO) 0.6 % (0-1); EOSINOPHILS # (AUTO) 0.2 X10'3 (0-0.9); HEMOGLOBIN 7.4 g/dl (14.0-17.9); LYMPHOCYTES # (AUTO) 0.7 X10'3 (1.1-4.8); LYMPHOCYTES % (AUTO) 20.3 % (21-51); MEAN CORPUSCULAR HEMOGLOBIN 28.1 PG (27.0-31.0); MEAN CORPUSCULAR HGB CONC 32.4 g/dL (33.0-36.5); MEAN CORPUSCULAR VOLUME 86.8 FL (78-98); MEAN PLATELET VOLUME 8.1 FL (7.4-10.4); MONOCYTES # (AUTO) 0.6 X10'3 (0-0.9); MONOCYTES % (AUTO) 17.4 % (2-12); NEUTROPHILS # (AUTO) 2.2 X10'3 (1.8-7.7); NEUTROPHILS % (AUTO) 55.7 % (42-75); PLATELET COUNT 121 X10'3 (140-440); RED BLOOD COUNT 2.65 X10'6 (4.70-6.10); RED CELL DISTRIBUTION WIDTH 18.4 % (11.5-14.5); WHITE BLOOD COUNT 3.7 X10'3 (4.5-11.0)
[2018-10-18 06:17] LABS: INR 1.2 INR
[2018-10-18 06:30] VITALS: BP 142/73
--- NOTE | 2018-10-18 07:06 | NUR ---
Patient in room PCU 3018. I have received report from Lexi KEMP and had the opportunity to ask questions and assume patient care.
--- NOTE | 2018-10-18 07:39 | NUR ---
Problems reprioritized. Patient report given, questions answered & plan of care reviewed with Shannon KEMP.
[2018-10-18] MEDS: pantoprazole 40mg Tablet.DR PO SCH ×2 (08:42→18:59)
[2018-10-18] MEDS: thiamine 100mg tablet PO SCH (08:42)
[2018-10-18] MEDS: lactobacillus rhamnosus 10,000 MMU CELLS/CAPSULE PO SCH ×2 (08:42→18:59)
[2018-10-18] MEDS: folic acid 1mg tablet PO SCH (08:42)
[2018-10-18] MEDS: tamsulosin 0.4mg capsule PO SCH (08:43)
[2018-10-18] MEDS: carvedilol 6.25mg tablet PO SCH ×2 (08:43→18:59)
[2018-10-18] MEDS: duloxetine 30mg CAPSULE.DR PO SCH (08:43)
[2018-10-18] MEDS: citalopram 20mg tablet PO SCH (08:43)
[2018-10-18] MEDS: insulin Lispro (HumaLOG) vial - multi-dose SQ SCH ×2 (08:54→19:02)
[2018-10-18 11:00] VITALS: BP 118/60
[2018-10-18] MEDS: metolazone 2.5mg tablet PO SCH (11:04)
[2018-10-18] MEDS: normal saline 1000ml 1,000 ML IV SCH (11:16)
[2018-10-18] MEDS ORDERED: LORazepam 2 mg/ml vial IV PRN (11:20)
--- NOTE | 2018-10-18 13:29 | NUR ---
Initial: Pt admit w/ UGIB hx end stage liver disease r/t etoh and homeless. PO 100% carb controlled meals; T2DM A1C <7. LBM 10/17. No nutrition concerns at this time. Rec: 1. continue carb controlled diet 2. wt per rx Addendum: 10/18/18 at [address] Amended: Links added.
[2018-10-18 15:00] VITALS: BP 137/70
--- NOTE | 2018-10-18 15:39 | NUR ---
Called Jennifer MONGE per patient's request to ask if Ativan frequency can be increased, Jennifer MONGE said No. I went back to patient's room patient is sleeping, no signs of anxiety or agitation. Patient was told prior to calling Jennifre that his Ativan is twice a day PRN, patient was not happy about it and asked me if the doctor or the PA can change the frequency.
[2018-10-18 15:57] LABS: HEMATOCRIT 23.9 % (42.0-52.0); HEMOGLOBIN 7.9 g/dl (14.0-17.9); MEAN CORPUSCULAR HEMOGLOBIN 28.8 PG (27.0-31.0); MEAN CORPUSCULAR HGB CONC 33.2 g/dL (33.0-36.5); MEAN CORPUSCULAR VOLUME 86.7 FL (78-98); PLATELET COUNT 147 X10'3 (140-440); RED BLOOD COUNT 2.76 X10'6 (4.70-6.10); RED CELL DISTRIBUTION WIDTH 18.1 % (11.5-14.5); WHITE BLOOD COUNT 3.7 X10'3 (4.5-11.0)
--- NOTE | 2018-10-18 16:10 | NUR ---
Explained to patient that I called Jennifer and that there was no change in Ativan frequency
--- NOTE | 2018-10-18 16:45 | NUR ---
Patient refused wound picture done. When I asked him if there is a specific time we could do it, he said "later!". Charge nurse Marlyn rose
[2018-10-18 18:00] VITALS: BP 146/75
--- NOTE | 2018-10-18 18:41 | NUR ---
Problems reprioritized. Patient report given, questions answered & plan of care reviewed with Bryan KEMP.
[2018-10-18] MEDS: insulin glargine (Lantus) pen - multi-dose SQ SCH (21:00)
--- NOTE | 2018-10-18 21:29 | NUR ---
noted pt sitting watching TV. glucose 22 - sweaty, talking to "guru" whom I cannot see. gave juice, sandwich, yogurt and dex 4. will call MD for possible d/c glucose protocol
[2018-10-18] MEDS: dextrose ORAL solution 15 GM/59 ML bottle PO PRN (21:33)
--- NOTE | 2018-10-18 21:56 | NUR ---
collette notified of low sugar. d/c protocol and not restart until pt meets glucose protocol again. pt was level 1 and dropped to 22 glucose after getting 5 units humalog at dinner for 55 carbs and sugar 161. possibly restart 1/2 dose lantus when restarting protocol.
[2018-10-18 22:00] VITALS: BP 142/69
--- NOTE | 2018-10-19 00:29 | NUR ---
PT non compliant with diet restrictions. bought and ate twix bar.
[2018-10-19] MEDS: octreotide 100mcg/1 ml ampule SQ SCH ×2 (00:50→07:22)
[2018-10-19] MEDS: vancomycin 250MG/10ML UD oral solution 10ML BOTTLE PO SCH ×3 (00:50→16:14)
[2018-10-19] MEDS: HYDROcodone/acetaminophen 5mg/325mg tablet PO PRN ×4 (00:55→16:14)
--- NOTE | 2018-10-19 01:55 | NUR ---
pt up to void. noncompliant with food intake or strict I/O
--- NOTE | 2018-10-19 01:57 | NUR ---
noted pt has incont stool, sticky loose brown BM. attempting to void on bedpan. Addendum: 10/19/18 at 0158 by Jorge Alberto Baxter RN disregard - wrong patient
[2018-10-19 02:00] VITALS: BP 139/71
--- NOTE | 2018-10-19 06:08 | NUR ---
reported to days. noted pt resting, just fell asleep at 0400. noted decreased blood glucose last noc.
--- NOTE | 2018-10-19 06:28 | NUR ---
Patient in room PCU 3018. I have received report from Jorge Alberto KEMP and had the opportunity to ask questions and assume patient care. Patient resting comfortably in bed, will continue to monitor.
[2018-10-19 06:40] LABS: ALBUMIN 2.3 G/DL (3.4-5.0); ANION GAP 8 (8-16); BLOOD UREA NITROGEN 21 MG/DL (7-18); BUN/CREATININE RATIO 14.7 (5.4-32.0); CALCIUM 7.4 MG/DL (8.5-10.1); CHLORIDE 97 MMOL/L (99-107); CREATININE 1.43 MG/DL (0.60-1.10); GLUCOSE 133 MG/DL (70-104); LIPASE 116 U/L (73-393); MAGNESIUM 1.6 MG/DL (1.5-2.4); PHOSPHORUS 3.6 MG/DL (2.3-4.5); POTASSIUM 4.9 MMOL/L (3.5-5.1); SODIUM 130 MMOL/L (135-145); TOTAL CARBON DIOXIDE 25.2 MMOL/L (24-32); eGFR 53 ML/MIN
[2018-10-19 06:43] LABS: INR 1.2 INR; PROTHROMBIN TIME 11.8 SECONDS (9.0-12.0)
[2018-10-19 07:00] VITALS: BP 116/68
[2018-10-19 07:01] LABS: BASOPHILS % (AUTO) 0.4 % (0-1); EOSINOPHILS # (AUTO) 0.2 X10'3 (0-0.9); EOSINOPHILS % (AUTO) 3.5 % (0-6); HEMATOCRIT 24.4 % (42.0-52.0); LYMPHOCYTES % (AUTO) 21.8 % (21-51); MEAN CORPUSCULAR HEMOGLOBIN 28.9 PG (27.0-31.0); MEAN CORPUSCULAR HGB CONC 32.9 g/dL (33.0-36.5); MEAN CORPUSCULAR VOLUME 87.8 FL (78-98); MONOCYTES # (AUTO) 0.9 X10'3 (0-0.9); MONOCYTES % (AUTO) 18.1 % (2-12); NEUTROPHILS # (AUTO) 2.6 X10'3 (1.8-7.7); NEUTROPHILS % (AUTO) 56.2 % (42-75); PLATELET COUNT 154 X10'3 (140-440); RED BLOOD COUNT 2.78 X10'6 (4.70-6.10); RED CELL DISTRIBUTION WIDTH 17.9 % (11.5-14.5); WHITE BLOOD COUNT 4.7 X10'3 (4.5-11.0)
[2018-10-19] MEDS: thiamine 100mg tablet PO SCH (07:17)
[2018-10-19] MEDS: pantoprazole 40mg Tablet.DR PO SCH (07:17)
[2018-10-19] MEDS: citalopram 20mg tablet PO SCH (07:17)
[2018-10-19] MEDS: lactobacillus rhamnosus 10,000 MMU CELLS/CAPSULE PO SCH (07:17)
[2018-10-19] MEDS: tamsulosin 0.4mg capsule PO SCH (07:18)
[2018-10-19] MEDS: metolazone 2.5mg tablet PO SCH (07:18)
[2018-10-19] MEDS: carvedilol 6.25mg tablet PO SCH (07:18)
[2018-10-19] MEDS: duloxetine 30mg CAPSULE.DR PO SCH (07:18)
[2018-10-19] MEDS: LORazepam 1 MG tablet PO PRN (07:22)
[2018-10-19] MEDS: folic acid 1mg tablet PO SCH (07:30)
[2018-10-19] MEDS: gabapentin 300mg capsule PO SCH ×3 (08:00→15:29)
[2018-10-19] MEDS: insulin Lispro (HumaLOG) vial - multi-dose SQ SCH (13:47)
[2018-10-19] MEDS: dextrose ORAL solution 15 GM/59 ML bottle PO PRN (15:29)
[2018-10-19 15:48] LABS: HEMOGLOBIN 8.1 g/dl (14.0-17.9); MEAN CORPUSCULAR HEMOGLOBIN 29.2 PG (27.0-31.0); MEAN CORPUSCULAR HGB CONC 33.9 g/dL (33.0-36.5); MEAN CORPUSCULAR VOLUME 86.3 FL (78-98); MEAN PLATELET VOLUME 7.7 FL (7.4-10.4); PLATELET COUNT 177 X10'3 (140-440); RED BLOOD COUNT 2.78 X10'6 (4.70-6.10); RED CELL DISTRIBUTION WIDTH 18.2 % (11.5-14.5); WHITE BLOOD COUNT 5.8 X10'3 (4.5-11.0)
[2018-10-19] MEDS ORDERED: PANT40TA4 PO (16:03)
[2018-10-19] MEDS ORDERED: CARV6.253 PO (16:03)
--- NOTE | 2018-10-19 17:15 | NUR ---
Patient discharged. All necessary paperwork and education reviewed with patient before signing. IV removed with catheter in tact, patient tolerated well. No telemetry monitoring to remove. Patient meds brought up from pharmacy and sent with him. All belongings bagged up and sent with patient.
[2018-10-21 16:37] LABS: OCCULT BLOOD STOOL POSITIVE (Neg)
== END 2018-10-19 16:50 | disposition home or self-care (01) | DRG 280 ==
LOC: ER 00:53 → ED HOLD 02:17 → PCU 3S 10-15 09:05
PROVIDERS: ADMIT Hospitalist; ATTEND Internal Medicine Critical Care Medicine
PROC: 30233N1 Transfusion of Nonautologous Red Blood Cells into Peripheral Vein, Percutaneous Approach (ICD-10-PCS; 2018-10-14)
PROC: 0DJ08ZZ Inspection of Upper Intestinal Tract, Via Natural or Artificial Opening Endoscopic (ICD-10-PCS; 2018-10-14)
PROC: BW211ZZ Computerized Tomography (CT Scan) of Abdomen and Pelvis using Low Osmolar Contrast (ICD-10-PCS; principal; 2018-10-15)
DX: K70.9 Alcoholic liver disease, unspecified (principal); I85.01 Esophageal varices with bleeding; I82.890 Acute embolism and thrombosis of other specified veins; E11.42 Type 2 diabetes mellitus with diabetic polyneuropathy; D62 Acute posthemorrhagic anemia; E87.5 Hyperkalemia; E78.00 Pure hypercholesterolemia, unspecified; K31.7 Polyp of stomach and duodenum; I86.4 Gastric varices; E78.5 Hyperlipidemia, unspecified; F10.10 Alcohol abuse, uncomplicated; F41.9 Anxiety disorder, unspecified; I10 Essential (primary) hypertension; I25.10 Atherosclerotic heart disease of native coronary artery without angina pectoris; I25.2 Old myocardial infarction; Z59.0 Homelessness; Z87.11 Personal history of peptic ulcer disease
CPT/HCPCS: 36415; 71045; 74177; 80048; 80053; 81001; 82150; 82272; 82570; 82948; 83010; 83036; 83615; 83690; 83735; 84100; 84133; 84156; 84300; 85025; 85027; 85610; 85730; 86703; 86706; 86803; 86870; 86880; 86885; 86900; 86901; 86902; 86920; 86922; 87070; 87088; 87207; 87324; 87340; 87449; 93005; 94640; 94760; 96361; 96365; 96368; 96375; 97116; 97162; 97530; 99152; 99153; 99291; C9113; G0378; J0610; J0780; J1630; J1815; J2060; J2250; J2270; J2354; J3010; J3411; J7030; P9016; Q0177; Q9967

== ENCOUNTER 2018-10-26 04:40 | Inpatient (IN) | payer MEDICAID ==
[~2018-10-26] VITALS: Ht 175.3 cm; Wt 78.7 kg
[2018-10-26] VITALS (20 sets, daily range): BP systolic 83–156; BP diastolic 23–73
[~2018-10-26 04:40] MED LIST changes: -ASPI-1130; -BLOO-122 TOP; +CARV6.253 PO; +DULO-31 PO; +ESCI10TA PO; +FLO0.4C PO; -FLUO-1; +FOLI1TAB16 PO; +GABA600T13 PO; +HYDR-3927 PO; -HYDR-3973; -LANTUS SUBCUT; -LOPE2CAP; +PANT40TA4 PO; +SENN-145 PO; +THIA100T70 PO; -TRAZ-218; -VANC250C12 PO; +ZAR2.5T PO
[2018-10-26] MEDS ORDERED: famotidine/PF 10 mg/ml inj IV ONE (04:55)
[2018-10-26] MEDS ORDERED: pantoprazole 40 MG vial IV ONE (04:55)
[2018-10-26] MEDS ORDERED: normal saline 1000ML IV soln IV ONE (04:55)
[2018-10-26 05:20] LABS: BASOPHILS # (AUTO) 0.1 X10'3 (0-0.2); BASOPHILS % (AUTO) 0.6 % (0-1); EOSINOPHILS % (AUTO) 0 % (0-6); HEMATOCRIT 23.3 % (42.0-52.0); HEMOGLOBIN 7.9 g/dl (14.0-17.9); LYMPHOCYTES # (AUTO) 1.1 X10'3 (1.1-4.8); LYMPHOCYTES % (AUTO) 10.6 % (21-51); MEAN CORPUSCULAR HEMOGLOBIN 27.9 PG (27.0-31.0); MEAN CORPUSCULAR HGB CONC 33.9 g/dL (33.0-36.5); MEAN CORPUSCULAR VOLUME 82.5 FL (78-98); MEAN PLATELET VOLUME 7.1 FL (7.4-10.4); MONOCYTES # (AUTO) 0.7 X10'3 (0-0.9); MONOCYTES % (AUTO) 6.4 % (2-12); NEUTROPHILS # (AUTO) 8.9 X10'3 (1.8-7.7); NEUTROPHILS % (AUTO) 82.4 % (42-75); PLATELET COUNT 279 X10'3 (140-440); RED BLOOD COUNT 2.83 X10'6 (4.70-6.10); RED CELL DISTRIBUTION WIDTH 19.2 % (11.5-14.5); WHITE BLOOD COUNT 10.8 X10'3 (4.5-11.0)
[2018-10-26 05:34] LABS: ALANINE AMINOTRANSFERASE 16 U/L (12-78); ALBUMIN 2.4 G/DL (3.4-5.0); ALBUMIN/GLOBULIN RATIO 0.4 (1.1-1.5); ALKALINE PHOSPHATASE 171 IU/L (46-116); ANION GAP 13 (8-16); ASPARTATE AMINO TRANSFERASE 20 U/L (10-37); BILIRUBIN,TOTAL 0.4 MG/DL (0.1-1.0); BLOOD UREA NITROGEN 23 MG/DL (7-18); BUN/CREATININE RATIO 18.3 (5.4-32.0); CALCIUM 7.2 MG/DL (8.5-10.1); CHLORIDE 83 MMOL/L (99-107); CREATININE 1.26 MG/DL (0.60-1.10); GLUCOSE 224 MG/DL (70-104); POTASSIUM 5.9 MMOL/L (3.5-5.1); TOTAL CARBON DIOXIDE 15.3 MMOL/L (24-32); TOTAL PROTEIN 7.9 G/DL (6.4-8.2); eGFR 62 ML/MIN
[2018-10-26 05:39] LABS: ETHANOL 0.377 GM/DL (0.0-0.010)
[2018-10-26 05:45] LABS: SODIUM 111 MMOL/L (135-145)
[2018-10-26] MEDS ORDERED: insulin regular, human 10 units/0.1 ml syringe IV ONE (05:50)
[2018-10-26] MEDS ORDERED: furosemide 40mg/4ml inj IV ONE (05:50)
[2018-10-26] MEDS ORDERED: dextrose 50%-water 50ml dispensing syringe IV ONE (05:50)
[2018-10-26] MEDS ORDERED: calcium chloride 100 MG/1 ML inj IV ONE ×2 (05:50)
[2018-10-26] MEDS ORDERED: sodium bicarbonate (0.9mEq/ml) 44.6 mEq/50ml syringe IV ONE (05:50)
[2018-10-26] MEDS ORDERED: sodium bicarbonate (8.4%) 1 mEq/ml syringe IV ONE (05:55)
[2018-10-26] MEDS ORDERED: pantoprazole 40MG/NS 100ML BAG 100 ML IV SCH (06:00)
[2018-10-26 06:03] LABS: CLARITY,URINE SLIGHTLY CLOUDY (Clear); COLOR,URINE YELLOW (Yellow); GLUCOSE, URINE 100 mg/dl (Neg); KETONES,URINE NEGATIVE (Neg); LEUKOCYTE ESTERASE ,URINE NEGATIVE (Neg); NITRITES, URINE NEGATIVE (Neg); OCCULT BLOOD,URINE LARGE (Neg); PROTEIN,URINE 30 mg/dl (Neg); UROBILINOGEN,URINE 0.2 E.U/dL (0.2-1.0)
[2018-10-26 06:09] LABS: UA COLLECTION TYPE CLN CATCH MIDSTREAM
[2018-10-26 06:10] LABS: INR 1.2 INR; PARTIAL THROMBOPLASTIN TIME 35 SECONDS (22-32); PROTHROMBIN TIME 12.3 SECONDS (9.0-12.0)
[2018-10-26 06:10] LABS: BACTERIA,URINE FEW /HPF (Neg); RBC,URINE 50-100 /HPF (0-2); SQUAMOUS EPITHELIAL CELL,UR FEW /LPF (FEW); WBC,URINE 0-4 /HPF (0-4)
[2018-10-26 06:11] LABS: URINE AMPHETAMINE SCREEN NEGATIVE (Neg); URINE BARBITUATE SCREEN NEGATIVE (Neg); URINE BENZODIAZEPINES SCREEN NEGATIVE (Neg); URINE CANNABINOID SCREEN NEGATIVE (Neg); URINE COCAINE SCREEN NEGATIVE (Neg); URINE METHADONE SCREEN NEGATIVE (Neg); URINE OPIATE SCREEN NEGATIVE (Neg); URINE PHENCYCLIDINE SCREEN NEGATIVE (Neg); YEAST MODERATE /HPF (NEGATIVE)
--- NOTE | 2018-10-26 06:50 | NUR ---
patient had large BM. multiple clots in stool
[2018-10-26] MEDS ORDERED: HYDROmorphone inj. 0.5 MG/0.5 ML DISP.SYRIN IV PRN (07:05)
[2018-10-26] MEDS ORDERED: thiamine 100mg/ml 2ml inj. IV ONE (07:05)
[2018-10-26] MEDS ORDERED: acetaminophen 325mg tablet PO PRN ×2 (07:05)
--- NOTE | 2018-10-26 07:14 | NUR ---
BUSINESS SYSTEMS ADVISOR September notified of bloody BM and updated her on patients timeline to go to GI Lab at 0730
--- NOTE | 2018-10-26 07:45 | NUR ---
Patient pulled out IV in R AC as GI lab nurse walked into the ER to transport the patient. Patient still has working IV in left EJ.
[2018-10-26] MEDS ORDERED: LIDOcaine Viscous 15ml cup ONE (07:55)
[2018-10-26] MEDS ORDERED: MIDAZolam 5mg/5ml vial ONE (07:55)
[2018-10-26] MEDS ORDERED: fentaNYL/PF 50MCG/1 ML 2ML syringe ONE (07:55)
[2018-10-26] MEDS ORDERED: folic acid inj. 2 MG, thiamine inj. 100 MG, MVI, adult No.4 with vit. K 10 ML in dextro... IV SCH ×4 (08:00)
[2018-10-26 08:29] LABS: OSMOLALITY UA 345 MOSM/K (50-1400)
--- NOTE | 2018-10-26 08:35 | NUR ---
Servando in GI lab notified of the multiple antibodies on type and cross
[2018-10-26 08:36] LABS: SODIUM,URINE RANDOM 88 MEQ/L
--- NOTE | 2018-10-26 10:30 | NUR ---
patient back to er
--- NOTE | 2018-10-26 10:36 | NUR ---
rosangela laguna from [facility] called asking for an update on the pt. did give a brief report/update, pt gave verbal authorization.
[2018-10-26] MEDS: LORazepam 2 mg/ml vial IV PRN (10:58)
[2018-10-26] MEDS: octreotide inj. 1,250 MCG in normal saline 250ml IV soln 243.75 ML IV SCH (10:59)
[2018-10-26 11:00] LABS: ALANINE AMINOTRANSFERASE 7 U/L (12-78); ALBUMIN 1.9 G/DL (3.4-5.0); ALBUMIN/GLOBULIN RATIO 0.4 (1.1-1.5); ALKALINE PHOSPHATASE 130 IU/L (46-116); AMYLASE 36 U/L (25-115); ANION GAP 11 (8-16); ASPARTATE AMINO TRANSFERASE 16 U/L (10-37); BILIRUBIN,TOTAL 0.3 MG/DL (0.1-1.0); BLOOD UREA NITROGEN 26 MG/DL (7-18); BUN/CREATININE RATIO 22.2 (5.4-32.0); CHLORIDE 90 MMOL/L (99-107); CREATININE 1.17 MG/DL (0.60-1.10); GLUCOSE 172 MG/DL (70-104); LIPASE 204 U/L (73-393); POTASSIUM 5.4 MMOL/L (3.5-5.1); TOTAL CARBON DIOXIDE 17.9 MMOL/L (24-32); TOTAL PROTEIN 6.5 G/DL (6.4-8.2); eGFR 67 ML/MIN
[2018-10-26] MEDS: pantoprazole 40MG/NS 100ML BAG 100 ML IV SCH ×3 (11:00→20:54)
[2018-10-26 11:02] LABS: SODIUM 119 MMOL/L (135-145)
[2018-10-26] MEDS ORDERED: ALBU2.5V10 (11:22)
[2018-10-26] MEDS ORDERED: METO5TAB7 PO (11:22)
[2018-10-26] MEDS ORDERED: INSU100I31 SUBCUT (11:22)
[2018-10-26] MEDS ORDERED: GABA-530 PO (11:22)
[2018-10-26] MEDS ORDERED: INSU100I39 (11:27)
[2018-10-26] MEDS ORDERED: TAMS0.4C32 PO (11:27)
--- NOTE | 2018-10-26 11:40 | NUR ---
Dr. Oro notified of GI labs recommendation and their intervention. 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 However they found other varices and they are unable to clamp these. They recommend cyanoacralyte glue for these and the patient would need to be transfered to [facility] or [facility] for this intervention.
[2018-10-26 12:10] LABS: MEAN CORPUSCULAR HEMOGLOBIN 27.8 PG (27.0-31.0); MEAN CORPUSCULAR HGB CONC 34.3 g/dL (33.0-36.5); MEAN PLATELET VOLUME 6.8 FL (7.4-10.4); PLATELET COUNT 195 X10'3 (140-440); RED BLOOD COUNT 1.89 X10'6 (4.70-6.10); RED CELL DISTRIBUTION WIDTH 18.8 % (11.5-14.5); WHITE BLOOD COUNT 9.4 X10'3 (4.5-11.0)
[2018-10-26 12:13] LABS: HEMOGLOBIN 5.3 g/dl (14.0-17.9)
[2018-10-26 12:14] LABS: HEMATOCRIT 15.3 % (42.0-52.0)
[2018-10-26] MEDS: normal saline 1000ml 1,000 ML IV SCH (12:52)
[2018-10-26] MEDS ORDERED: hydrOXYzine 25 MG tablet PO PRN (13:05)
--- NOTE | 2018-10-26 13:19 | NUR ---
I PAGED DR MCBRIDE [phone] FOR THE BLOOD CONSENT TO BE SIGNED.
[2018-10-26] MEDS: LORazepam 1 MG tablet PO PRN (14:06)
--- NOTE | 2018-10-26 14:10 | NUR ---
folic acid started at 1253. folic acid stopped due to not enough iv access. iv access needed for blood transfussion. folic acid will be restarted after blood transfussion.
[2018-10-26] MEDS ORDERED: LORazepam 2 mg/ml vial IV PRN (14:50)
[2018-10-26] MEDS: chlordiazePOXIDE 25mg capsule PO SCH ×3 (14:50→15:18)
[2018-10-26] MEDS ORDERED: morphine 2 MG/ML inj. syringe IV PRN (15:30)
[2018-10-26] MEDS: morphine 4 MG/ML inj SYRINge IV PRN ×3 (15:39→23:51)
[2018-10-26] MEDS ORDERED: albumin 25% 50mL bottle 100 ML IV ONE (17:10)
[2018-10-26] MEDS: ondansetron/PF 4mg/2ml inj IV PRN ×2 (17:15→23:19)
[2018-10-26] MEDS ORDERED: albumin (human) 25% 100ml IV 100 ML IV ONE ×2 (17:16→18:30)
--- NOTE | 2018-10-26 18:15 | NUR ---
Problems reprioritized. Patient report given, questions answered & plan of care reviewed with Alfredito.
[2018-10-26] MEDS: carvedilol 6.25mg tablet PO SCH (20:09)
[2018-10-26] MEDS ORDERED: insulin glargine (Lantus) pen - multi-dose SQ SCH (21:00)
[2018-10-26] MEDS ORDERED: insulin Lispro (HumaLOG) vial - multi-dose SQ SCH (21:40)
--- NOTE | 2018-10-26 21:41 | NUR ---
Pt states he normally only takes 12-20 units of Lantus at home anymore and he gets hypoglycemic.
[2018-10-26] MEDS: gabapentin 100mg capsule PO SCH (21:44)
[2018-10-26] MEDS ORDERED: insulin glargine (Lantus) pen - multi-dose SQ ONE (21:50)
[2018-10-26 23:40] LABS: HEMOGLOBIN 7.3 g/dl (14.0-17.9); MEAN CORPUSCULAR HEMOGLOBIN 29.5 PG (27.0-31.0); MEAN CORPUSCULAR HGB CONC 35.5 g/dL (33.0-36.5); MEAN CORPUSCULAR VOLUME 83.1 FL (78-98); MEAN PLATELET VOLUME 7.6 FL (7.4-10.4); PLATELET COUNT 135 X10'3 (140-440); RED BLOOD COUNT 2.48 X10'6 (4.70-6.10); RED CELL DISTRIBUTION WIDTH 16.5 % (11.5-14.5)
[2018-10-26 23:44] LABS: ALBUMIN 1.9 G/DL (3.4-5.0); ANION GAP 8 (8-16); BLOOD UREA NITROGEN 24 MG/DL (7-18); CALCIUM 7.2 MG/DL (8.5-10.1); CHLORIDE 93 MMOL/L (99-107); GLUCOSE 243 MG/DL (70-104); SODIUM 122 MMOL/L (135-145); TOTAL CARBON DIOXIDE 21.3 MMOL/L (24-32); eGFR 65 ML/MIN
[2018-10-26 23:47] LABS: POTASSIUM 5.5 MMOL/L (3.5-5.1)
[2018-10-26 23:50] LABS: HEMATOCRIT 20.6 % (42.0-52.0)
[2018-10-27] VITALS (20 sets, daily range): BP systolic 114–152; BP diastolic 40–71
[2018-10-27] MEDS: chlordiazePOXIDE 25mg capsule PO SCH ×3 (00:06→16:19)
[2018-10-27] MEDS: pantoprazole 40MG/NS 100ML BAG 100 ML IV SCH ×5 (01:53→22:09)
[2018-10-27] MEDS: normal saline 1000ml 1,000 ML IV SCH ×2 (03:03→23:03)
[2018-10-27] MEDS: morphine 4 MG/ML inj SYRINge IV PRN ×2 (03:55→12:50)
[2018-10-27] MEDS: LORazepam 1 MG tablet PO PRN (04:18)
[2018-10-27 05:47] LABS: ALANINE AMINOTRANSFERASE 10 U/L (12-78); ALBUMIN/GLOBULIN RATIO 0.4 (1.1-1.5); ALKALINE PHOSPHATASE 116 IU/L (46-116); AMYLASE 42 U/L (25-115); ANION GAP 7 (8-16); ASPARTATE AMINO TRANSFERASE 17 U/L (10-37); BILIRUBIN,TOTAL 0.5 MG/DL (0.1-1.0); BLOOD UREA NITROGEN 25 MG/DL (7-18); CALCIUM 7.3 MG/DL (8.5-10.1); CHLORIDE 96 MMOL/L (99-107); CREATININE 1.25 MG/DL (0.60-1.10); GLUCOSE 188 MG/DL (70-104); LIPASE 361 U/L (73-393); MAGNESIUM 1.6 MG/DL (1.5-2.4); PHOSPHORUS 3.4 MG/DL (2.3-4.5); SODIUM 125 MMOL/L (135-145); TOTAL CARBON DIOXIDE 22.5 MMOL/L (24-32); TOTAL PROTEIN 6.5 G/DL (6.4-8.2); eGFR 62 ML/MIN
[2018-10-27 05:53] LABS: INR 1.2 INR; PARTIAL THROMBOPLASTIN TIME 31 SECONDS (22-32); PROTHROMBIN TIME 12.3 SECONDS (9.0-12.0)
--- NOTE | 2018-10-27 06:21 | NUR ---
Problems reprioritized. Patient report given, questions answered & plan of care reviewed with Alycia KEMP.
[2018-10-27 06:57] LABS: BASOPHILS % (AUTO) 0.5 % (0-1); EOSINOPHILS % (AUTO) 0.1 % (0-6); HEMOGLOBIN 7.5 g/dl (14.0-17.9); LYMPHOCYTES # (AUTO) 0.6 X10'3 (1.1-4.8); MEAN CORPUSCULAR HGB CONC 35.2 g/dL (33.0-36.5); MEAN CORPUSCULAR VOLUME 82.4 FL (78-98); MONOCYTES # (AUTO) 0.7 X10'3 (0-0.9); MONOCYTES % (AUTO) 9.3 % (2-12); NEUTROPHILS # (AUTO) 5.9 X10'3 (1.8-7.7); NEUTROPHILS % (AUTO) 82.1 % (42-75); PLATELET COUNT 126 X10'3 (140-440); RED BLOOD COUNT 2.58 X10'6 (4.70-6.10); RED CELL DISTRIBUTION WIDTH 16.8 % (11.5-14.5); WHITE BLOOD COUNT 7.2 X10'3 (4.5-11.0)
[2018-10-27 07:15] LABS: HEMATOCRIT 21.2 % (42.0-52.0)
[2018-10-27] MEDS: metolazone 2.5mg tablet PO SCH (08:00)
[2018-10-27] MEDS: octreotide inj. 1,250 MCG in normal saline 250ml IV soln 243.75 ML IV SCH (08:05)
[2018-10-27] MEDS: duloxetine 30mg CAPSULE.DR PO SCH (08:24)
[2018-10-27] MEDS: folic acid 1mg tablet PO SCH (08:24)
[2018-10-27] MEDS: tamsulosin 0.4mg capsule PO SCH (08:24)
[2018-10-27] MEDS: thiamine 100mg tablet PO SCH (08:24)
[2018-10-27] MEDS: gabapentin 100mg capsule PO SCH ×3 (08:25→21:26)
[2018-10-27] MEDS: citalopram 20mg tablet PO SCH (08:25)
[2018-10-27] MEDS: carvedilol 6.25mg tablet PO SCH ×2 (08:25→21:26)
[2018-10-27 11:03] LABS: MEAN CORPUSCULAR HEMOGLOBIN 29.3 PG (27.0-31.0); MEAN CORPUSCULAR HGB CONC 35.3 g/dL (33.0-36.5); MEAN CORPUSCULAR VOLUME 82.8 FL (78-98); MEAN PLATELET VOLUME 6.9 FL (7.4-10.4); PLATELET COUNT 124 X10'3 (140-440); RED BLOOD COUNT 2.38 X10'6 (4.70-6.10); RED CELL DISTRIBUTION WIDTH 16.9 % (11.5-14.5); WHITE BLOOD COUNT 7.1 X10'3 (4.5-11.0)
[2018-10-27 11:09] LABS: HEMATOCRIT 19.7 % (42.0-52.0)
[2018-10-27 11:11] LABS: ANION GAP 4 (8-16); BLOOD UREA NITROGEN 22 MG/DL (7-18); BUN/CREATININE RATIO 17.6 (5.4-32.0); CALCIUM 7.3 MG/DL (8.5-10.1); CHLORIDE 97 MMOL/L (99-107); CREATININE 1.25 MG/DL (0.60-1.10); GLUCOSE 120 MG/DL (70-104); POTASSIUM 4.8 MMOL/L (3.5-5.1); SODIUM 127 MMOL/L (135-145); TOTAL CARBON DIOXIDE 26.1 MMOL/L (24-32); eGFR 62 ML/MIN
[2018-10-27] MEDS: ondansetron/PF 4mg/2ml inj IV PRN (12:56)
[2018-10-27] MEDS: multivitamins, therapeutics tablet PO SCH (12:56)
[2018-10-27] MEDS ORDERED: HYDROmorphone 1 mg/ml syringe IV PRN (13:20)
[2018-10-27] MEDS: HYDROmorphone inj. 0.5 MG/0.5 ML DISP.SYRIN IV PRN ×3 (13:42→22:11)
[2018-10-27 16:52] LABS: MEAN CORPUSCULAR HEMOGLOBIN 29.3 PG (27.0-31.0); MEAN CORPUSCULAR HGB CONC 35.1 g/dL (33.0-36.5); MEAN CORPUSCULAR VOLUME 83.3 FL (78-98); PLATELET COUNT 113 X10'3 (140-440); RED BLOOD COUNT 2.32 X10'6 (4.70-6.10); RED CELL DISTRIBUTION WIDTH 17.2 % (11.5-14.5); WHITE BLOOD COUNT 6.7 X10'3 (4.5-11.0)
[2018-10-27 16:55] LABS: ANION GAP 7 (8-16); BLOOD UREA NITROGEN 24 MG/DL (7-18); BUN/CREATININE RATIO 18.5 (5.4-32.0); CALCIUM 7.4 MG/DL (8.5-10.1); CHLORIDE 99 MMOL/L (99-107); GLUCOSE 215 MG/DL (70-104); SODIUM 130 MMOL/L (135-145); TOTAL CARBON DIOXIDE 23.7 MMOL/L (24-32); eGFR 60 ML/MIN
[2018-10-27 16:56] LABS: HEMOGLOBIN 6.8 g/dl (14.0-17.9)
[2018-10-27 16:57] LABS: HEMATOCRIT 19.3 % (42.0-52.0)
--- NOTE | 2018-10-27 17:58 | NUR ---
Spoke with patient and he is agreeable to taking Humalog insulin at meal times. States he was afraid of becoming hypoglycemic afterwards; doesnt take humalog at home. Also unsure if he is type 1 or type 2. Will begin at level 1 as default.
--- NOTE | 2018-10-27 19:01 | NUR ---
Patient in room ICU 2046. I have received report from Alycia KEMP and had the opportunity to ask questions and assume patient care.
[2018-10-27] MEDS: insulin glargine (Lantus) pen - multi-dose SQ SCH (21:30)
[2018-10-27 23:21] LABS: ANION GAP 6 (8-16); BLOOD UREA NITROGEN 24 MG/DL (7-18); BUN/CREATININE RATIO 18.8 (5.4-32.0); CALCIUM 7.3 MG/DL (8.5-10.1); CHLORIDE 97 MMOL/L (99-107); CREATININE 1.28 MG/DL (0.60-1.10); GLUCOSE 99 MG/DL (70-104); POTASSIUM 4.7 MMOL/L (3.5-5.1); SODIUM 126 MMOL/L (135-145); TOTAL CARBON DIOXIDE 22.7 MMOL/L (24-32); eGFR 61 ML/MIN
[2018-10-27 23:22] LABS: MEAN CORPUSCULAR HEMOGLOBIN 28.5 PG (27.0-31.0); MEAN CORPUSCULAR HGB CONC 33.5 g/dL (33.0-36.5); MEAN CORPUSCULAR VOLUME 85.2 FL (78-98); MEAN PLATELET VOLUME 7.1 FL (7.4-10.4); PLATELET COUNT 117 X10'3 (140-440); RED BLOOD COUNT 2.44 X10'6 (4.70-6.10); RED CELL DISTRIBUTION WIDTH 16.5 % (11.5-14.5); WHITE BLOOD COUNT 6.3 X10'3 (4.5-11.0)
[2018-10-27 23:27] LABS: HEMATOCRIT 20.7 % (42.0-52.0); HEMOGLOBIN 6.9 g/dl (14.0-17.9)
[2018-10-28] VITALS (27 sets, daily range): BP systolic 119–146; BP diastolic 53–86
[2018-10-28] MEDS: chlordiazePOXIDE 25mg capsule PO SCH ×3 (02:02→16:14)
[2018-10-28] MEDS: dextrose 50%-water 50ml dispensing syringe IV PRN (02:47)
[2018-10-28] MEDS: pantoprazole 40MG/NS 100ML BAG 100 ML IV SCH ×5 (03:01→19:03)
[2018-10-28 05:03] LABS: BASOPHILS % (AUTO) 0.4 % (0-1); EOSINOPHILS % (AUTO) 0.5 % (0-6); HEMOGLOBIN 7.4 g/dl (14.0-17.9); LYMPHOCYTES # (AUTO) 0.5 X10'3 (1.1-4.8); LYMPHOCYTES % (AUTO) 7.1 % (21-51); MEAN CORPUSCULAR HEMOGLOBIN 29.4 PG (27.0-31.0); MEAN CORPUSCULAR HGB CONC 34.6 g/dL (33.0-36.5); MEAN CORPUSCULAR VOLUME 84.9 FL (78-98); MEAN PLATELET VOLUME 6.9 FL (7.4-10.4); MONOCYTES # (AUTO) 0.5 X10'3 (0-0.9); MONOCYTES % (AUTO) 6.7 % (2-12); NEUTROPHILS # (AUTO) 5.9 X10'3 (1.8-7.7); NEUTROPHILS % (AUTO) 85.3 % (42-75); PLATELET COUNT 112 X10'3 (140-440); RED BLOOD COUNT 2.52 X10'6 (4.70-6.10); RED CELL DISTRIBUTION WIDTH 16.2 % (11.5-14.5); WHITE BLOOD COUNT 6.9 X10'3 (4.5-11.0)
--- NOTE | 2018-10-28 05:15 | NUR ---
Pt had a intrinsic feeling of low blood pressure, upon doing a glucose check it came back 57. A D-50 shot was given which brought his glucose back up to 133. Will continue to monitor.
[2018-10-28 05:16] LABS: HEMATOCRIT 21.4 % (42.0-52.0); INR 1.2 INR; PARTIAL THROMBOPLASTIN TIME 26 SECONDS (22-32); PROTHROMBIN TIME 11.6 SECONDS (9.0-12.0)
[2018-10-28 05:18] LABS: ALANINE AMINOTRANSFERASE 9 U/L (12-78); ALBUMIN/GLOBULIN RATIO 0.4 (1.1-1.5); ALKALINE PHOSPHATASE 101 IU/L (46-116); AMYLASE 43 U/L (25-115); ANION GAP 6 (8-16); ASPARTATE AMINO TRANSFERASE 14 U/L (10-37); BILIRUBIN,TOTAL 0.4 MG/DL (0.1-1.0); BLOOD UREA NITROGEN 23 MG/DL (7-18); BUN/CREATININE RATIO 17.7 (5.4-32.0); CALCIUM 7.3 MG/DL (8.5-10.1); CHLORIDE 96 MMOL/L (99-107); GLUCOSE 115 MG/DL (70-104); LIPASE 268 U/L (73-393); MAGNESIUM 1.6 MG/DL (1.5-2.4); PHOSPHORUS 2.9 MG/DL (2.3-4.5); POTASSIUM 4.9 MMOL/L (3.5-5.1); SODIUM 124 MMOL/L (135-145); TOTAL CARBON DIOXIDE 22.2 MMOL/L (24-32); TOTAL PROTEIN 6.5 G/DL (6.4-8.2); eGFR 60 ML/MIN
[2018-10-28] MEDS: HYDROmorphone inj. 0.5 MG/0.5 ML DISP.SYRIN IV PRN ×5 (06:07→22:33)
--- NOTE | 2018-10-28 06:43 | NUR ---
Problems reprioritized. Patient report given, questions answered & plan of care reviewed with Mika KEMP.
[2018-10-28] MEDS ORDERED: lactulose 20gm/30ml cup PO PRN (07:05)
[2018-10-28] MEDS: tamsulosin 0.4mg capsule PO SCH (08:02)
[2018-10-28] MEDS: metolazone 2.5mg tablet PO SCH (08:02)
[2018-10-28] MEDS: LORazepam 2 mg/ml vial IV PRN ×2 (08:02→20:39)
[2018-10-28] MEDS: multivitamins, therapeutics tablet PO SCH (08:04)
[2018-10-28] MEDS: citalopram 20mg tablet PO SCH (08:04)
[2018-10-28] MEDS: gabapentin 100mg capsule PO SCH ×4 (08:04→20:54)
[2018-10-28] MEDS: folic acid 1mg tablet PO SCH (08:04)
[2018-10-28] MEDS: carvedilol 6.25mg tablet PO SCH ×2 (08:04→20:39)
[2018-10-28] MEDS: duloxetine 30mg CAPSULE.DR PO SCH (08:04)
[2018-10-28] MEDS: thiamine 100mg tablet PO SCH (08:04)
[2018-10-28] MEDS: octreotide inj. 1,250 MCG in normal saline 250ml IV soln 243.75 ML IV SCH (09:19)
[2018-10-28 10:50] LABS: HEMOGLOBIN 7.7 g/dl (14.0-17.9); MEAN CORPUSCULAR HEMOGLOBIN 29.6 PG (27.0-31.0); MEAN CORPUSCULAR VOLUME 84.5 FL (78-98); MEAN PLATELET VOLUME 6.8 FL (7.4-10.4); PLATELET COUNT 104 X10'3 (140-440); RED BLOOD COUNT 2.61 X10'6 (4.70-6.10); WHITE BLOOD COUNT 6.4 X10'3 (4.5-11.0)
[2018-10-28 10:54] LABS: ALBUMIN 1.9 G/DL (3.4-5.0); ANION GAP 8 (8-16); BLOOD UREA NITROGEN 22 MG/DL (7-18); BUN/CREATININE RATIO 15.8 (5.4-32.0); CALCIUM 7.1 MG/DL (8.5-10.1); CHLORIDE 91 MMOL/L (99-107); CREATININE 1.39 MG/DL (0.60-1.10); GLUCOSE 294 MG/DL (70-104); POTASSIUM 4.8 MMOL/L (3.5-5.1); eGFR 55 ML/MIN
[2018-10-28 10:58] LABS: SODIUM 120 MMOL/L (135-145)
--- NOTE | 2018-10-28 12:09 | NUR ---
Lab called with 2 critical values: NA [address] Oro informed in person. Pt put on 1.5 L FR. HCT has gone up in value from previous one.
[2018-10-28] MEDS: normal saline 1000ml 1,000 ML IV SCH (13:20)
[2018-10-28 17:05] LABS: HEMATOCRIT 23.4 % (42.0-52.0); HEMOGLOBIN 8.1 g/dl (14.0-17.9); MEAN CORPUSCULAR HEMOGLOBIN 29.7 PG (27.0-31.0); MEAN CORPUSCULAR HGB CONC 34.7 g/dL (33.0-36.5); MEAN CORPUSCULAR VOLUME 85.6 FL (78-98); MEAN PLATELET VOLUME 6.8 FL (7.4-10.4); PLATELET COUNT 103 X10'3 (140-440); RED BLOOD COUNT 2.74 X10'6 (4.70-6.10); RED CELL DISTRIBUTION WIDTH 15.8 % (11.5-14.5); WHITE BLOOD COUNT 6.5 X10'3 (4.5-11.0)
[2018-10-28 17:09] LABS: ALBUMIN 2.1 G/DL (3.4-5.0); ANION GAP 7 (8-16); BLOOD UREA NITROGEN 20 MG/DL (7-18); BUN/CREATININE RATIO 15.7 (5.4-32.0); CALCIUM 7.4 MG/DL (8.5-10.1); CHLORIDE 91 MMOL/L (99-107); CREATININE 1.27 MG/DL (0.60-1.10); GLUCOSE 225 MG/DL (70-104); POTASSIUM 4.8 MMOL/L (3.5-5.1); SODIUM 122 MMOL/L (135-145); TOTAL CARBON DIOXIDE 23.6 MMOL/L (24-32); eGFR 61 ML/MIN
--- NOTE | 2018-10-28 18:18 | NUR ---
Pt is a Type I Dm . Pt states when he is given humaog his BS bootoms. This happend last night and in previous visits. During rounds RN told Dr. Oro of this and that RN didn't feel comfortable covering pt with Humalog
--- NOTE | 2018-10-28 18:20 | NUR ---
Patient in room ICU 2046. I have received report from Mika and had the opportunity to ask questions and assume patient care.
--- NOTE | 2018-10-28 18:20 | NUR ---
Problems reprioritized. Patient report given, questions answered & plan of care reviewed with Mac RN.
[2018-10-28] MEDS: insulin glargine (Lantus) pen - multi-dose SQ SCH (20:53)
[2018-10-28 23:00] LABS: HEMATOCRIT 24.7 % (42.0-52.0); HEMOGLOBIN 8.2 g/dl (14.0-17.9); MEAN CORPUSCULAR HGB CONC 33.3 g/dL (33.0-36.5); MEAN CORPUSCULAR VOLUME 87.1 FL (78-98); MEAN PLATELET VOLUME 6.7 FL (7.4-10.4); PLATELET COUNT 114 X10'3 (140-440); RED BLOOD COUNT 2.84 X10'6 (4.70-6.10); RED CELL DISTRIBUTION WIDTH 15.8 % (11.5-14.5); WHITE BLOOD COUNT 6.8 X10'3 (4.5-11.0)
[2018-10-28 23:01] LABS: ANION GAP 9 (8-16); BLOOD UREA NITROGEN 19 MG/DL (7-18); BUN/CREATININE RATIO 14.8 (5.4-32.0); CALCIUM 7.5 MG/DL (8.5-10.1); CHLORIDE 91 MMOL/L (99-107); CREATININE 1.28 MG/DL (0.60-1.10); GLUCOSE 224 MG/DL (70-104); POTASSIUM 4.5 MMOL/L (3.5-5.1); SODIUM 121 MMOL/L (135-145); TOTAL CARBON DIOXIDE 21.3 MMOL/L (24-32); eGFR 61 ML/MIN
[2018-10-29] VITALS (24 sets, daily range): BP systolic 112–145; BP diastolic 53–77
[2018-10-29] MEDS: chlordiazePOXIDE 25mg capsule PO SCH ×3 (00:01→15:42)
[2018-10-29] MEDS: HYDROmorphone inj. 0.5 MG/0.5 ML DISP.SYRIN IV PRN ×3 (03:14→11:55)
[2018-10-29 05:12] LABS: ALANINE AMINOTRANSFERASE 10 U/L (12-78); ALBUMIN/GLOBULIN RATIO 0.4 (1.1-1.5); ALKALINE PHOSPHATASE 104 IU/L (46-116); AMYLASE 34 U/L (25-115); ANION GAP 6 (8-16); ASPARTATE AMINO TRANSFERASE 13 U/L (10-37); BILIRUBIN,TOTAL 0.4 MG/DL (0.1-1.0); BLOOD UREA NITROGEN 18 MG/DL (7-18); BUN/CREATININE RATIO 13.5 (5.4-32.0); CALCIUM 7.4 MG/DL (8.5-10.1); CHLORIDE 93 MMOL/L (99-107); CREATININE 1.33 MG/DL (0.60-1.10); GLUCOSE 109 MG/DL (70-104); LIPASE 180 U/L (73-393); MAGNESIUM 1.4 MG/DL (1.5-2.4); PHOSPHORUS 2.4 MG/DL (2.3-4.5); POTASSIUM 4.2 MMOL/L (3.5-5.1); SODIUM 123 MMOL/L (135-145); TOTAL CARBON DIOXIDE 23.8 MMOL/L (24-32); TOTAL PROTEIN 6.5 G/DL (6.4-8.2); eGFR 58 ML/MIN
[2018-10-29 05:13] LABS: BASOPHILS % (AUTO) 0.4 % (0-1); EOSINOPHILS # (AUTO) 0.1 X10'3 (0-0.9); HEMATOCRIT 22.2 % (42.0-52.0); HEMOGLOBIN 7.9 g/dl (14.0-17.9); LYMPHOCYTES # (AUTO) 0.6 X10'3 (1.1-4.8); LYMPHOCYTES % (AUTO) 8.3 % (21-51); MEAN CORPUSCULAR HEMOGLOBIN 29.8 PG (27.0-31.0); MEAN CORPUSCULAR HGB CONC 35.4 g/dL (33.0-36.5); MEAN CORPUSCULAR VOLUME 84.2 FL (78-98); MEAN PLATELET VOLUME 6.9 FL (7.4-10.4); MONOCYTES # (AUTO) 0.5 X10'3 (0-0.9); MONOCYTES % (AUTO) 7.7 % (2-12); NEUTROPHILS # (AUTO) 5.9 X10'3 (1.8-7.7); NEUTROPHILS % (AUTO) 82.6 % (42-75); PLATELET COUNT 106 X10'3 (140-440); RED BLOOD COUNT 2.64 X10'6 (4.70-6.10); WHITE BLOOD COUNT 7.1 X10'3 (4.5-11.0)
[2018-10-29 05:16] LABS: INR 1.2 INR; PARTIAL THROMBOPLASTIN TIME 30 SECONDS (22-32)
[2018-10-29] MEDS: dextrose 50%-water 50ml dispensing syringe IV PRN (08:15)
[2018-10-29] MEDS: thiamine 100mg tablet PO SCH (08:25)
[2018-10-29] MEDS: folic acid 1mg tablet PO SCH (08:26)
[2018-10-29] MEDS: multivitamins, therapeutics tablet PO SCH (08:26)
[2018-10-29] MEDS: tamsulosin 0.4mg capsule PO SCH (08:26)
[2018-10-29] MEDS: gabapentin 100mg capsule PO SCH ×3 (08:26→19:53)
[2018-10-29] MEDS: carvedilol 6.25mg tablet PO SCH ×2 (08:26→19:50)
[2018-10-29] MEDS: citalopram 20mg tablet PO SCH (08:26)
[2018-10-29] MEDS: duloxetine 30mg CAPSULE.DR PO SCH (08:26)
[2018-10-29] MEDS: metolazone 2.5mg tablet PO SCH (08:47)
[2018-10-29] MEDS: pantoprazole 40MG/NS 100ML BAG 100 ML IV SCH ×5 (08:47→21:00)
--- NOTE | 2018-10-29 10:00 | NUR ---
Late entry: Spoke to Dr. Oro. Pt hypoglycemic this am. On prior admission pt received short acting insulin and blood glucose was less than 20. Per pt report. Pt only takes 20 units of lantus at home daily. Spoke to Dr. Oro and pharmacy. Plan: MD to discontinue short acting insulin and cut lantus dose to 20 units HS. RN will continue to monitor
[2018-10-29] MEDS: octreotide inj. 1,250 MCG in normal saline 250ml IV soln 243.75 ML IV SCH (13:10)
[2018-10-29 14:04] LABS: HEMATOCRIT 22.7 % (42.0-52.0); HEMOGLOBIN 7.9 g/dl (14.0-17.9); MEAN CORPUSCULAR HEMOGLOBIN 29.3 PG (27.0-31.0); MEAN CORPUSCULAR HGB CONC 34.7 g/dL (33.0-36.5); MEAN CORPUSCULAR VOLUME 84.6 FL (78-98); MEAN PLATELET VOLUME 6.9 FL (7.4-10.4); PLATELET COUNT 106 X10'3 (140-440); RED BLOOD COUNT 2.68 X10'6 (4.70-6.10); RED CELL DISTRIBUTION WIDTH 15.8 % (11.5-14.5); WHITE BLOOD COUNT 8.4 X10'3 (4.5-11.0)
[2018-10-29 14:06] LABS: ALBUMIN 1.9 G/DL (3.4-5.0); ANION GAP 7 (8-16); BLOOD UREA NITROGEN 19 MG/DL (7-18); BUN/CREATININE RATIO 15.7 (5.4-32.0); CALCIUM 7.5 MG/DL (8.5-10.1); CHLORIDE 96 MMOL/L (99-107); CREATININE 1.21 MG/DL (0.60-1.10); GLUCOSE 72 MG/DL (70-104); POTASSIUM 4.3 MMOL/L (3.5-5.1); SODIUM 127 MMOL/L (135-145); TOTAL CARBON DIOXIDE 23.8 MMOL/L (24-32); eGFR 65 ML/MIN
--- NOTE | 2018-10-29 14:24 | NUR ---
Pt had lg bloody stool. Notified MD, no new orders received at this time RN will continue to monitor
[2018-10-29] MEDS: normal saline 1000ml 1,000 ML IV SCH (15:03)
[2018-10-29] MEDS: HYDROmorphone 2mg tablet PO PRN ×2 (15:42→19:50)
[2018-10-29] MEDS: insulin glargine (Lantus) pen - multi-dose SQ SCH (21:00)
[2018-10-29 23:29] LABS: HEMATOCRIT 22.4 % (42.0-52.0); HEMOGLOBIN 7.5 g/dl (14.0-17.9); MEAN CORPUSCULAR HEMOGLOBIN 28.9 PG (27.0-31.0); MEAN CORPUSCULAR HGB CONC 33.7 g/dL (33.0-36.5); MEAN CORPUSCULAR VOLUME 85.7 FL (78-98); MEAN PLATELET VOLUME 6.9 FL (7.4-10.4); PLATELET COUNT 94 X10'3 (140-440); RED BLOOD COUNT 2.61 X10'6 (4.70-6.10); RED CELL DISTRIBUTION WIDTH 16.3 % (11.5-14.5); WHITE BLOOD COUNT 7.9 X10'3 (4.5-11.0)
[2018-10-29 23:32] LABS: ALBUMIN 1.7 G/DL (3.4-5.0); ANION GAP 6 (8-16); BLOOD UREA NITROGEN 20 MG/DL (7-18); CALCIUM 7.3 MG/DL (8.5-10.1); CHLORIDE 92 MMOL/L (99-107); CREATININE 1.43 MG/DL (0.60-1.10); GLUCOSE 197 MG/DL (70-104); POTASSIUM 4.5 MMOL/L (3.5-5.1); SODIUM 122 MMOL/L (135-145); TOTAL CARBON DIOXIDE 23.8 MMOL/L (24-32); eGFR 53 ML/MIN
[2018-10-30] VITALS (28 sets, daily range): BP systolic 106–152; BP diastolic 59–75
[2018-10-30] MEDS: chlordiazePOXIDE 25mg capsule PO SCH ×3 (00:29→17:05)
[2018-10-30] MEDS: HYDROmorphone 2mg tablet PO PRN ×5 (00:30→19:01)
[2018-10-30] MEDS: pantoprazole 40MG/NS 100ML BAG 100 ML IV SCH ×5 (00:30→19:38)
[2018-10-30 04:58] LABS: BASOPHILS % (AUTO) 0.3 % (0-1); EOSINOPHILS # (AUTO) 0.1 X10'3 (0-0.9); EOSINOPHILS % (AUTO) 1.1 % (0-6); HEMATOCRIT 23.5 % (42.0-52.0); HEMOGLOBIN 8.1 g/dl (14.0-17.9); LYMPHOCYTES # (AUTO) 0.6 X10'3 (1.1-4.8); LYMPHOCYTES % (AUTO) 7.7 % (21-51); MEAN CORPUSCULAR HEMOGLOBIN 29.3 PG (27.0-31.0); MEAN CORPUSCULAR HGB CONC 34.5 g/dL (33.0-36.5); MEAN CORPUSCULAR VOLUME 85.1 FL (78-98); MEAN PLATELET VOLUME 6.9 FL (7.4-10.4); MONOCYTES # (AUTO) 0.7 X10'3 (0-0.9); MONOCYTES % (AUTO) 9.6 % (2-12); NEUTROPHILS # (AUTO) 6.2 X10'3 (1.8-7.7); NEUTROPHILS % (AUTO) 81.3 % (42-75); PLATELET COUNT 96 X10'3 (140-440); RED BLOOD COUNT 2.76 X10'6 (4.70-6.10); RED CELL DISTRIBUTION WIDTH 16.2 % (11.5-14.5); WHITE BLOOD COUNT 7.6 X10'3 (4.5-11.0)
[2018-10-30 05:03] LABS: ALANINE AMINOTRANSFERASE 7 U/L (12-78); ALBUMIN 1.8 G/DL (3.4-5.0); ALBUMIN/GLOBULIN RATIO 0.4 (1.1-1.5); ALKALINE PHOSPHATASE 108 IU/L (46-116); AMYLASE 46 U/L (25-115); ANION GAP 5 (8-16); ASPARTATE AMINO TRANSFERASE 12 U/L (10-37); BILIRUBIN,TOTAL 0.5 MG/DL (0.1-1.0); BLOOD UREA NITROGEN 19 MG/DL (7-18); BUN/CREATININE RATIO 13.3 (5.4-32.0); CALCIUM 7.3 MG/DL (8.5-10.1); CHLORIDE 95 MMOL/L (99-107); CREATININE 1.43 MG/DL (0.60-1.10); GLUCOSE 203 MG/DL (70-104); LIPASE 226 U/L (73-393); MAGNESIUM 1.2 MG/DL (1.5-2.4); PHOSPHORUS 2.8 MG/DL (2.3-4.5); POTASSIUM 4.4 MMOL/L (3.5-5.1); SODIUM 126 MMOL/L (135-145); TOTAL CARBON DIOXIDE 26.3 MMOL/L (24-32); TOTAL PROTEIN 6.3 G/DL (6.4-8.2); eGFR 53 ML/MIN
[2018-10-30 05:11] LABS: INR 1.2 INR; PARTIAL THROMBOPLASTIN TIME 30 SECONDS (22-32); PROTHROMBIN TIME 12.5 SECONDS (9.0-12.0)
[2018-10-30] MEDS: multivitamins, therapeutics tablet PO SCH (08:08)
[2018-10-30] MEDS: citalopram 20mg tablet PO SCH (08:08)
[2018-10-30] MEDS: carvedilol 6.25mg tablet PO SCH ×2 (08:08→20:31)
[2018-10-30] MEDS: gabapentin 100mg capsule PO SCH ×3 (08:08→20:31)
[2018-10-30] MEDS: tamsulosin 0.4mg capsule PO SCH (08:08)
[2018-10-30] MEDS: duloxetine 30mg CAPSULE.DR PO SCH (08:08)
[2018-10-30] MEDS: thiamine 100mg tablet PO SCH (08:08)
[2018-10-30] MEDS: folic acid 1mg tablet PO SCH (08:08)
[2018-10-30] MEDS: metolazone 2.5mg tablet PO SCH (08:09)
[2018-10-30] MEDS: normal saline 1000ml 1,000 ML IV SCH ×2 (11:03→20:31)
[2018-10-30] MEDS: octreotide inj. 1,250 MCG in normal saline 250ml IV soln 243.75 ML IV SCH ×2 (11:05→15:50)
[2018-10-30 11:25] LABS: HEMATOCRIT 23.4 % (42.0-52.0); HEMOGLOBIN 7.9 g/dl (14.0-17.9); MEAN CORPUSCULAR HGB CONC 33.8 g/dL (33.0-36.5); MEAN CORPUSCULAR VOLUME 85.6 FL (78-98); MEAN PLATELET VOLUME 6.9 FL (7.4-10.4); PLATELET COUNT 97 X10'3 (140-440); RED BLOOD COUNT 2.73 X10'6 (4.70-6.10); RED CELL DISTRIBUTION WIDTH 16.4 % (11.5-14.5); WHITE BLOOD COUNT 8.4 X10'3 (4.5-11.0)
[2018-10-30 11:33] LABS: ALBUMIN 1.8 G/DL (3.4-5.0); ANION GAP 4 (8-16); BLOOD UREA NITROGEN 20 MG/DL (7-18); CALCIUM 7.4 MG/DL (8.5-10.1); CHLORIDE 94 MMOL/L (99-107); CREATININE 1.43 MG/DL (0.60-1.10); GLUCOSE 244 MG/DL (70-104); POTASSIUM 4.5 MMOL/L (3.5-5.1); SODIUM 125 MMOL/L (135-145); TOTAL CARBON DIOXIDE 26.6 MMOL/L (24-32); eGFR 53 ML/MIN
[2018-10-30 16:19] LABS: HEMOGLOBIN 7.2 g/dl (14.0-17.9); MEAN CORPUSCULAR HEMOGLOBIN 29.3 PG (27.0-31.0); MEAN CORPUSCULAR HGB CONC 34.6 g/dL (33.0-36.5); MEAN CORPUSCULAR VOLUME 84.8 FL (78-98); MEAN PLATELET VOLUME 6.6 FL (7.4-10.4); PLATELET COUNT 98 X10'3 (140-440); RED BLOOD COUNT 2.46 X10'6 (4.70-6.10); RED CELL DISTRIBUTION WIDTH 16.3 % (11.5-14.5); WHITE BLOOD COUNT 8.4 X10'3 (4.5-11.0)
[2018-10-30 16:21] LABS: HEMATOCRIT 20.9 % (42.0-52.0)
[2018-10-30 16:30] LABS: ALBUMIN 1.7 G/DL (3.4-5.0); ANION GAP 4 (8-16); BLOOD UREA NITROGEN 20 MG/DL (7-18); BUN/CREATININE RATIO 14.8 (5.4-32.0); CALCIUM 7.1 MG/DL (8.5-10.1); CHLORIDE 96 MMOL/L (99-107); CREATININE 1.35 MG/DL (0.60-1.10); GLUCOSE 222 MG/DL (70-104); POTASSIUM 4.2 MMOL/L (3.5-5.1); SODIUM 125 MMOL/L (135-145); TOTAL CARBON DIOXIDE 25.4 MMOL/L (24-32); eGFR 57 ML/MIN
--- NOTE | 2018-10-30 18:17 | NUR ---
RN started blood at 1756. RN stayed in room for first 15 minutes. no signs of reaction at this time. Hand off report given to overnight associate RN.
--- NOTE | 2018-10-30 18:45 | NUR ---
Patient in room ICU 2046. I have received report from VIRIDIANA Bae and had the opportunity to ask questions and assume patient care.
[2018-10-30] MEDS: insulin glargine (Lantus) pen - multi-dose SQ SCH (20:33)
[2018-10-30 23:40] LABS: ALBUMIN 1.7 G/DL (3.4-5.0); ANION GAP 3 (8-16); BLOOD UREA NITROGEN 21 MG/DL (7-18); BUN/CREATININE RATIO 15.7 (5.4-32.0); CALCIUM 7.3 MG/DL (8.5-10.1); CHLORIDE 96 MMOL/L (99-107); CREATININE 1.34 MG/DL (0.60-1.10); GLUCOSE 212 MG/DL (70-104); POTASSIUM 4.1 MMOL/L (3.5-5.1); SODIUM 125 MMOL/L (135-145); TOTAL CARBON DIOXIDE 26.3 MMOL/L (24-32); eGFR 58 ML/MIN
[2018-10-31] VITALS (25 sets, daily range): BP systolic 104–139; BP diastolic 50–75
[2018-10-31 00:28] LABS: HEMATOCRIT 23.3 % (42.0-52.0); MEAN CORPUSCULAR HEMOGLOBIN 29.6 PG (27.0-31.0); MEAN CORPUSCULAR HGB CONC 34.4 g/dL (33.0-36.5); MEAN CORPUSCULAR VOLUME 85.9 FL (78-98); MEAN PLATELET VOLUME 6.9 FL (7.4-10.4); PLATELET COUNT 93 X10'3 (140-440); RED BLOOD COUNT 2.72 X10'6 (4.70-6.10); WHITE BLOOD COUNT 8.4 X10'3 (4.5-11.0)
[2018-10-31] MEDS: pantoprazole 40MG/NS 100ML BAG 100 ML IV SCH ×5 (00:54→22:06)
[2018-10-31] MEDS: HYDROmorphone 2mg tablet PO PRN ×5 (00:54→22:06)
[2018-10-31] MEDS: chlordiazePOXIDE 25mg capsule PO SCH ×3 (00:54→17:50)
[2018-10-31 06:21] LABS: INR 1.3 INR; PARTIAL THROMBOPLASTIN TIME 32 SECONDS (22-32)
--- NOTE | 2018-10-31 06:25 | NUR ---
Problems reprioritized. Patient report given, questions answered & plan of care reviewed with VIRIDIANA Bae.
[2018-10-31 06:29] LABS: ALANINE AMINOTRANSFERASE 8 U/L (12-78); ALBUMIN 1.7 G/DL (3.4-5.0); ALBUMIN/GLOBULIN RATIO 0.4 (1.1-1.5); ALKALINE PHOSPHATASE 97 IU/L (46-116); AMYLASE 40 U/L (25-115); ANION GAP 3 (8-16); ASPARTATE AMINO TRANSFERASE 11 U/L (10-37); BILIRUBIN,TOTAL 0.8 MG/DL (0.1-1.0); BLOOD UREA NITROGEN 21 MG/DL (7-18); BUN/CREATININE RATIO 14.6 (5.4-32.0); CALCIUM 7.2 MG/DL (8.5-10.1); CHLORIDE 97 MMOL/L (99-107); CREATININE 1.44 MG/DL (0.60-1.10); GLUCOSE 160 MG/DL (70-104); LIPASE 209 U/L (73-393); MAGNESIUM 1.3 MG/DL (1.5-2.4); PHOSPHORUS 2.8 MG/DL (2.3-4.5); POTASSIUM 4.1 MMOL/L (3.5-5.1); SODIUM 126 MMOL/L (135-145); TOTAL CARBON DIOXIDE 26.3 MMOL/L (24-32); TOTAL PROTEIN 6.1 G/DL (6.4-8.2); eGFR 53 ML/MIN
[2018-10-31 06:47] LABS: BASOPHILS % (AUTO) 0.5 % (0-1); EOSINOPHILS # (AUTO) 0.2 X10'3 (0-0.9); EOSINOPHILS % (AUTO) 2.4 % (0-6); HEMATOCRIT 23.6 % (42.0-52.0); LYMPHOCYTES # (AUTO) 0.7 X10'3 (1.1-4.8); LYMPHOCYTES % (AUTO) 9.2 % (21-51); MEAN CORPUSCULAR HEMOGLOBIN 29.2 PG (27.0-31.0); MEAN CORPUSCULAR HGB CONC 33.7 g/dL (33.0-36.5); MEAN CORPUSCULAR VOLUME 86.5 FL (78-98); MONOCYTES # (AUTO) 0.8 X10'3 (0-0.9); MONOCYTES % (AUTO) 10.2 % (2-12); NEUTROPHILS # (AUTO) 5.9 X10'3 (1.8-7.7); NEUTROPHILS % (AUTO) 77.7 % (42-75); PLATELET COUNT 96 X10'3 (140-440); RED BLOOD COUNT 2.73 X10'6 (4.70-6.10); RED CELL DISTRIBUTION WIDTH 16.1 % (11.5-14.5); WHITE BLOOD COUNT 7.7 X10'3 (4.5-11.0)
--- NOTE | 2018-10-31 07:20 | NUR ---
Patient in room ICU 2046. I have received report from Catalino KEMP and had the opportunity to ask questions and assume patient care.
--- NOTE | 2018-10-31 08:00 | NUR ---
Held am insulin per nursing judgement of patient dropping low and having a sensitivity to humalog.
[2018-10-31] MEDS: gabapentin 100mg capsule PO SCH ×3 (08:13→20:46)
[2018-10-31] MEDS: duloxetine 30mg CAPSULE.DR PO SCH (08:13)
[2018-10-31] MEDS: folic acid 1mg tablet PO SCH (08:13)
[2018-10-31] MEDS: multivitamins, therapeutics tablet PO SCH (08:14)
[2018-10-31] MEDS: thiamine 100mg tablet PO SCH (08:14)
[2018-10-31] MEDS: citalopram 20mg tablet PO SCH (08:15)
[2018-10-31] MEDS: tamsulosin 0.4mg capsule PO SCH (08:16)
[2018-10-31] MEDS: carvedilol 6.25mg tablet PO SCH ×2 (08:19→20:46)
[2018-10-31] MEDS: metolazone 2.5mg tablet PO SCH (08:19)
--- NOTE | 2018-10-31 12:33 | NUR ---
Dr. Iva galan, discussed patient's sensitivity to Humalog Insulin and patient's blood sugar dropping low, states to follow hospital protocol. This nurse held patient's insulin this am per nursing judgement with B.S. of 127. Will cont. to monitor.
--- NOTE | 2018-10-31 17:33 | NUR ---
Initial: Pt admit for GI bleed with hypernatremia. Pt awaiting transfer for cyanoacrylate injection of gastric varices per MD progress notes. Pt currently on a CHO controlled diet with a fluid restriction of 1.5L; documented PO intake averaging 75% likely meeting nutrient needs. Pt with DM ulcer to left great toe, attempted visit with pt at bedside however pt was sleeping and did not wake for RD visit. Written protein education with RD contact information left at patient's bedside. LB 10/30. Will continue to follow. Recommendations: 1) Continue CHO controlled diet with fluid restrict per MD 2) Monitor need for ONS 3) Wt per rx Addendum: 10/31/18 at [address] Amended: Links added.
[2018-10-31] MEDS: normal saline 1000ml 1,000 ML IV SCH (17:51)
--- NOTE | 2018-10-31 18:00 | NUR ---
Held dinner time insulin per nursing judgement of patient dropping low and having a sensitivity to humalog.
[2018-10-31] MEDS: insulin glargine (Lantus) pen - multi-dose SQ SCH (22:05)
--- NOTE | 2018-10-31 22:41 | NUR ---
Patient resting in bed at this time with eyes closed, received Lantus SQ and Dilaudid 4 mg po along with other HS meds. Patient calm/cooperative. Went on walk tonight reaching 75 ft. Fluid restriction continues. Has 440 ml left until 0600 to maintain fluid restriction amt. of 1.5 L.
[2018-11-01] VITALS (11 sets, daily range): BP systolic 98–126; BP diastolic 49–67
[2018-11-01] MEDS: chlordiazePOXIDE 25mg capsule PO SCH ×2 (00:35→07:45)
[2018-11-01] MEDS: pantoprazole 40MG/NS 100ML BAG 100 ML IV SCH ×2 (01:00→06:00)
--- NOTE | 2018-11-01 03:07 | NUR ---
Patient in room ICU 2046. I have received report from Yvette KEMP and had the opportunity to ask questions and assume patient care.
[2018-11-01] MEDS: HYDROmorphone 2mg tablet PO PRN ×4 (03:10→20:38)
[2018-11-01 03:19] LABS: ALANINE AMINOTRANSFERASE 7 U/L (12-78); ALBUMIN 1.7 G/DL (3.4-5.0); ALBUMIN/GLOBULIN RATIO 0.4 (1.1-1.5); ALKALINE PHOSPHATASE 100 IU/L (46-116); ANION GAP 1 (8-16); ASPARTATE AMINO TRANSFERASE 10 U/L (10-37); BILIRUBIN,TOTAL 0.4 MG/DL (0.1-1.0); BLOOD UREA NITROGEN 24 MG/DL (7-18); BUN/CREATININE RATIO 15.8 (5.4-32.0); CALCIUM 7.4 MG/DL (8.5-10.1); CHLORIDE 99 MMOL/L (99-107); CREATININE 1.52 MG/DL (0.60-1.10); GLUCOSE 109 MG/DL (70-104); MAGNESIUM 1.3 MG/DL (1.5-2.4); PHOSPHORUS 3.1 MG/DL (2.3-4.5); POTASSIUM 4.1 MMOL/L (3.5-5.1); SODIUM 128 MMOL/L (135-145); TOTAL CARBON DIOXIDE 27.9 MMOL/L (24-32); TOTAL PROTEIN 6.2 G/DL (6.4-8.2); eGFR 50 ML/MIN
[2018-11-01 03:28] LABS: BASOPHILS # (AUTO) 0.1 X10'3 (0-0.2); BASOPHILS % (AUTO) 1.3 % (0-1); EOSINOPHILS # (AUTO) 0.3 X10'3 (0-0.9); EOSINOPHILS % (AUTO) 3.7 % (0-6); HEMATOCRIT 22.9 % (42.0-52.0); HEMOGLOBIN 7.8 g/dl (14.0-17.9); INR 1.3 INR; LYMPHOCYTES # (AUTO) 0.8 X10'3 (1.1-4.8); LYMPHOCYTES % (AUTO) 10.9 % (21-51); MEAN CORPUSCULAR HEMOGLOBIN 29.5 PG (27.0-31.0); MEAN CORPUSCULAR HGB CONC 34.3 g/dL (33.0-36.5); MEAN CORPUSCULAR VOLUME 86.1 FL (78-98); MEAN PLATELET VOLUME 7.2 FL (7.4-10.4); MONOCYTES # (AUTO) 0.8 X10'3 (0-0.9); MONOCYTES % (AUTO) 12.1 % (2-12); PARTIAL THROMBOPLASTIN TIME 32 SECONDS (22-32); PLATELET COUNT 113 X10'3 (140-440); PROTHROMBIN TIME 12.9 SECONDS (9.0-12.0); RED BLOOD COUNT 2.66 X10'6 (4.70-6.10); RED CELL DISTRIBUTION WIDTH 15.9 % (11.5-14.5); WHITE BLOOD COUNT 6.9 X10'3 (4.5-11.0)
--- NOTE | 2018-11-01 06:19 | NUR ---
Problems reprioritized. Patient report given, questions answered & plan of care reviewed with Alycia KEMP.
[2018-11-01] MEDS: metolazone 2.5mg tablet PO SCH (07:44)
[2018-11-01] MEDS: duloxetine 30mg CAPSULE.DR PO SCH (07:45)
[2018-11-01] MEDS: gabapentin 100mg capsule PO SCH ×3 (07:45→20:31)
[2018-11-01] MEDS: folic acid 1mg tablet PO SCH (07:45)
[2018-11-01] MEDS: citalopram 20mg tablet PO SCH (07:45)
[2018-11-01] MEDS: carvedilol 6.25mg tablet PO SCH ×2 (07:45→20:31)
[2018-11-01] MEDS: multivitamins, therapeutics tablet PO SCH (07:45)
[2018-11-01] MEDS: tamsulosin 0.4mg capsule PO SCH (07:45)
[2018-11-01] MEDS: thiamine 100mg tablet PO SCH (07:45)
--- NOTE | 2018-11-01 12:53 | NUR ---
Patient in room ESTEPHANIA 348. I have received report from CHRIS KEMP and had the opportunity to ask questions and assume patient care.PATIENT APPEARS TO BE IN STABLE CONDITION. ORIENTATED TO ROOM.
[2018-11-01] MEDS: octreotide inj. 1,250 MCG in normal saline 250ml IV soln 243.75 ML IV SCH (13:05)
--- NOTE | 2018-11-01 18:34 | NUR ---
Received report from VIRIDIANA Gutierrez. Patient is awake and alert on room air, in no apparent distress. Call light and items of frequent use within reach. Will continue to monitor.
--- NOTE | 2018-11-01 18:46 | NUR ---
Problems reprioritized. Patient report given, questions answered & plan of care reviewed with Mirian Hollingsworth.
[2018-11-01] MEDS: insulin glargine (Lantus) pen - multi-dose SQ SCH (20:42)
[2018-11-02] VITALS: BP 102/61
[2018-11-02] MEDS: HYDROmorphone 2mg tablet PO PRN ×4 (03:34→21:10)
[2018-11-02 05:21] LABS: INR 1.3 INR; PARTIAL THROMBOPLASTIN TIME 33 SECONDS (22-32)
[2018-11-02 05:28] LABS: BASOPHILS % (AUTO) 0.4 % (0-1); EOSINOPHILS # (AUTO) 0.2 X10'3 (0-0.9); EOSINOPHILS % (AUTO) 2.6 % (0-6); HEMATOCRIT 23.3 % (42.0-52.0); HEMOGLOBIN 7.7 g/dl (14.0-17.9); LYMPHOCYTES # (AUTO) 0.6 X10'3 (1.1-4.8); LYMPHOCYTES % (AUTO) 10.2 % (21-51); MEAN CORPUSCULAR HEMOGLOBIN 28.9 PG (27.0-31.0); MEAN CORPUSCULAR HGB CONC 33.2 g/dL (33.0-36.5); MEAN PLATELET VOLUME 7.3 FL (7.4-10.4); MONOCYTES # (AUTO) 0.8 X10'3 (0-0.9); MONOCYTES % (AUTO) 12.1 % (2-12); NEUTROPHILS # (AUTO) 4.7 X10'3 (1.8-7.7); NEUTROPHILS % (AUTO) 74.7 % (42-75); PLATELET COUNT 140 X10'3 (140-440); RED BLOOD COUNT 2.68 X10'6 (4.70-6.10); WHITE BLOOD COUNT 6.3 X10'3 (4.5-11.0)
[2018-11-02 05:29] LABS: ALANINE AMINOTRANSFERASE 9 U/L (12-78); ALBUMIN 1.7 G/DL (3.4-5.0); ALBUMIN/GLOBULIN RATIO 0.4 (1.1-1.5); ALKALINE PHOSPHATASE 142 IU/L (46-116); ANION GAP 4 (8-16); ASPARTATE AMINO TRANSFERASE 14 U/L (10-37); BILIRUBIN,TOTAL 0.4 MG/DL (0.1-1.0); BLOOD UREA NITROGEN 27 MG/DL (7-18); BUN/CREATININE RATIO 15.6 (5.4-32.0); CALCIUM 7.6 MG/DL (8.5-10.1); CHLORIDE 100 MMOL/L (99-107); CREATININE 1.73 MG/DL (0.60-1.10); GLUCOSE 102 MG/DL (70-104); MAGNESIUM 1.3 MG/DL (1.5-2.4); PHOSPHORUS 3.6 MG/DL (2.3-4.5); POTASSIUM 4.3 MMOL/L (3.5-5.1); SODIUM 130 MMOL/L (135-145); TOTAL CARBON DIOXIDE 26.2 MMOL/L (24-32); TOTAL PROTEIN 6.5 G/DL (6.4-8.2); eGFR 43 ML/MIN
--- NOTE | 2018-11-02 06:32 | NUR ---
Problems reprioritized. Patient report given, questions answered & plan of care reviewed with VIRIDIANA Levy.
--- NOTE | 2018-11-02 06:39 | NUR ---
Patient in room ESTEPHANIA 348. I have received report from Mirian KEMP and had the opportunity to ask questions and assume patient care.
[2018-11-02 07:45] VITALS: BP 105/56
[2018-11-02] MEDS: gabapentin 100mg capsule PO SCH ×3 (08:06→21:09)
[2018-11-02] MEDS: carvedilol 6.25mg tablet PO SCH ×2 (08:06→19:58)
[2018-11-02] MEDS: multivitamins, therapeutics tablet PO SCH (08:06)
[2018-11-02] MEDS: thiamine 100mg tablet PO SCH (08:06)
[2018-11-02] MEDS: tamsulosin 0.4mg capsule PO SCH (08:06)
[2018-11-02] MEDS: folic acid 1mg tablet PO SCH (08:06)
[2018-11-02] MEDS: duloxetine 30mg CAPSULE.DR PO SCH (08:07)
[2018-11-02] MEDS: metolazone 2.5mg tablet PO SCH (08:07)
[2018-11-02] MEDS: citalopram 20mg tablet PO SCH (08:07)
[2018-11-02 12:19] VITALS: BP 101/53
--- NOTE | 2018-11-02 18:18 | NUR ---
Problems reprioritized. Patient report given, questions answered & plan of care reviewed with Mirian KEMP. Student documentation: I have reviewed and agree with all interventions, assessments performed and documented by Angelica KEMP. Student Medication Administration: For this medication-pass time frame, all medication were reviewed, dispensed, administered and documented per hospital policy by Angelica KEMP.
[2018-11-02 20:00] VITALS: BP 133/63
[2018-11-02] MEDS: insulin glargine (Lantus) pen - multi-dose SQ SCH (21:00)
[2018-11-03] VITALS: BP 134/61
[2018-11-03] MEDS: HYDROmorphone 2mg tablet PO PRN ×4 (02:18→20:06)
[2018-11-03 05:38] LABS: BASOPHILS % (AUTO) 0.6 % (0-1); EOSINOPHILS # (AUTO) 0.1 X10'3 (0-0.9); EOSINOPHILS % (AUTO) 2.1 % (0-6); HEMATOCRIT 23.2 % (42.0-52.0); LYMPHOCYTES # (AUTO) 0.7 X10'3 (1.1-4.8); LYMPHOCYTES % (AUTO) 11.4 % (21-51); MEAN CORPUSCULAR HEMOGLOBIN 29.6 PG (27.0-31.0); MEAN CORPUSCULAR HGB CONC 34.5 g/dL (33.0-36.5); MEAN CORPUSCULAR VOLUME 85.7 FL (78-98); MEAN PLATELET VOLUME 7.1 FL (7.4-10.4); MONOCYTES # (AUTO) 0.7 X10'3 (0-0.9); MONOCYTES % (AUTO) 10.2 % (2-12); NEUTROPHILS % (AUTO) 75.7 % (42-75); PLATELET COUNT 188 X10'3 (140-440); RED BLOOD COUNT 2.71 X10'6 (4.70-6.10); RED CELL DISTRIBUTION WIDTH 16.4 % (11.5-14.5); WHITE BLOOD COUNT 6.6 X10'3 (4.5-11.0)
[2018-11-03 05:44] LABS: ALANINE AMINOTRANSFERASE 7 U/L (12-78); ALBUMIN 1.8 G/DL (3.4-5.0); ALBUMIN/GLOBULIN RATIO 0.4 (1.1-1.5); ALKALINE PHOSPHATASE 146 IU/L (46-116); ANION GAP 8 (8-16); ASPARTATE AMINO TRANSFERASE 14 U/L (10-37); BILIRUBIN,TOTAL 0.4 MG/DL (0.1-1.0); BLOOD UREA NITROGEN 29 MG/DL (7-18); BUN/CREATININE RATIO 17.3 (5.4-32.0); CALCIUM 7.7 MG/DL (8.5-10.1); CHLORIDE 98 MMOL/L (99-107); CREATININE 1.68 MG/DL (0.60-1.10); GLUCOSE 76 MG/DL (70-104); MAGNESIUM 1.3 MG/DL (1.5-2.4); PHOSPHORUS 3.1 MG/DL (2.3-4.5); POTASSIUM 4.1 MMOL/L (3.5-5.1); SODIUM 131 MMOL/L (135-145); TOTAL CARBON DIOXIDE 25.2 MMOL/L (24-32); TOTAL PROTEIN 6.7 G/DL (6.4-8.2); eGFR 44 ML/MIN
[2018-11-03 05:58] LABS: INR 1.2 INR; PARTIAL THROMBOPLASTIN TIME 32 SECONDS (22-32); PROTHROMBIN TIME 12.4 SECONDS (9.0-12.0)
--- NOTE | 2018-11-03 06:23 | NUR ---
Problems reprioritized. Patient report given, questions answered & plan of care reviewed with VIRIDIANA Levy.
--- NOTE | 2018-11-03 06:39 | NUR ---
Patient in room ESTEPHANIA 348. I have received report from Mirian KEMP and had the opportunity to ask questions and assume patient care.
[2018-11-03 07:04] VITALS: BP 120/63
[2018-11-03] MEDS: carvedilol 6.25mg tablet PO SCH ×2 (08:25→20:04)
[2018-11-03] MEDS: duloxetine 30mg CAPSULE.DR PO SCH (08:25)
[2018-11-03] MEDS: gabapentin 100mg capsule PO SCH ×3 (08:25→20:04)
[2018-11-03] MEDS: tamsulosin 0.4mg capsule PO SCH (08:26)
[2018-11-03] MEDS: folic acid 1mg tablet PO SCH (08:27)
[2018-11-03] MEDS: multivitamins, therapeutics tablet PO SCH (08:27)
[2018-11-03] MEDS: metolazone 2.5mg tablet PO SCH (08:27)
[2018-11-03] MEDS: citalopram 20mg tablet PO SCH (08:27)
[2018-11-03] MEDS: thiamine 100mg tablet PO SCH (08:27)
[2018-11-03 11:00] VITALS: BP 141/67
[2018-11-03] MEDS ORDERED: potassium Cl 20 mEq SR tablet PO PRN ×2 (12:50)
[2018-11-03] MEDS ORDERED: magnesium 4gm in 100ml NS 100 ML IV PRN (12:50)
[2018-11-03] MEDS ORDERED: potassium Cl 40MEQ/NS 500ml 500 ML IV PRN ×2 (12:50)
[2018-11-03] MEDS: magnesium Cl slow-release 64mg tablet PO PRN ×2 (13:28→23:53)
--- NOTE | 2018-11-03 14:06 | NUR ---
Student documentation: I have reviewed and agree with all interventions, assessments performed and documented by Angelica LANG from [facility]. Student Medication Administration: For this medication-pass time frame, all medication were reviewed, dispensed, administered and documented per hospital policy by Angelica LANG from [facility].
--- NOTE | 2018-11-03 15:45 | NUR ---
Notified Dr. Aguilar that needs a discharge summary so that it can be sent to [facility] for possible transport. Dr. Aguilar states that he will work on it later because he is busy with other things at the moment.
--- NOTE | 2018-11-03 18:27 | NUR ---
Problems reprioritized. Patient report given, questions answered & plan of care reviewed with Abigail KEMP.
--- NOTE | 2018-11-03 18:30 | NUR ---
Patient in room ESTEPHANIA 348. I have received report from Mildred KEMP and had the opportunity to ask questions and assume patient care. Patient resting, finished dinner. Will continue to monitor.
[2018-11-03 20:00] VITALS: BP 127/72
[2018-11-03 23:43] VITALS: BP 137/72
[2018-11-04] MEDS: HYDROmorphone 2mg tablet PO PRN ×6 (00:09→23:19)
[2018-11-04 05:24] LABS: BASOPHILS % (AUTO) 0.7 % (0-1); EOSINOPHILS # (AUTO) 0.1 X10'3 (0-0.9); EOSINOPHILS % (AUTO) 1.9 % (0-6); HEMATOCRIT 23.1 % (42.0-52.0); HEMOGLOBIN 7.8 g/dl (14.0-17.9); LYMPHOCYTES # (AUTO) 0.8 X10'3 (1.1-4.8); LYMPHOCYTES % (AUTO) 14.4 % (21-51); MEAN CORPUSCULAR HEMOGLOBIN 29.2 PG (27.0-31.0); MEAN CORPUSCULAR HGB CONC 33.8 g/dL (33.0-36.5); MEAN CORPUSCULAR VOLUME 86.5 FL (78-98); MEAN PLATELET VOLUME 6.9 FL (7.4-10.4); MONOCYTES # (AUTO) 0.6 X10'3 (0-0.9); MONOCYTES % (AUTO) 11.1 % (2-12); NEUTROPHILS # (AUTO) 4.1 X10'3 (1.8-7.7); NEUTROPHILS % (AUTO) 71.9 % (42-75); PLATELET COUNT 218 X10'3 (140-440); RED BLOOD COUNT 2.67 X10'6 (4.70-6.10); RED CELL DISTRIBUTION WIDTH 16.6 % (11.5-14.5); WHITE BLOOD COUNT 5.7 X10'3 (4.5-11.0)
[2018-11-04 05:33] LABS: INR 1.2 INR; PARTIAL THROMBOPLASTIN TIME 32 SECONDS (22-32); PROTHROMBIN TIME 12.4 SECONDS (9.0-12.0)
[2018-11-04 05:36] LABS: ALANINE AMINOTRANSFERASE 9 U/L (12-78); ALBUMIN 1.9 G/DL (3.4-5.0); ALBUMIN/GLOBULIN RATIO 0.4 (1.1-1.5); ALKALINE PHOSPHATASE 140 IU/L (46-116); ANION GAP 7 (8-16); ASPARTATE AMINO TRANSFERASE 12 U/L (10-37); BILIRUBIN,TOTAL 0.4 MG/DL (0.1-1.0); BLOOD UREA NITROGEN 30 MG/DL (7-18); BUN/CREATININE RATIO 18.4 (5.4-32.0); CHLORIDE 98 MMOL/L (99-107); CREATININE 1.63 MG/DL (0.60-1.10); GLUCOSE 140 MG/DL (70-104); MAGNESIUM 1.3 MG/DL (1.5-2.4); PHOSPHORUS 3.4 MG/DL (2.3-4.5); POTASSIUM 4.6 MMOL/L (3.5-5.1); SODIUM 132 MMOL/L (135-145); TOTAL CARBON DIOXIDE 27.2 MMOL/L (24-32); TOTAL PROTEIN 7.1 G/DL (6.4-8.2); eGFR 46 ML/MIN
--- NOTE | 2018-11-04 06:15 | NUR ---
Patient in room ESTEPHANIA 348. I have received report from VIRIDIANA Ortega and had the opportunity to ask questions and assume patient care.
--- NOTE | 2018-11-04 06:34 | NUR ---
Patient in room ESTEPHANIA 348. I have received report from Steffany KEMP and had the opportunity to ask questions and assume patient care.
--- NOTE | 2018-11-04 06:42 | NUR ---
Problems reprioritized. Patient report given, questions answered & plan of care reviewed with Lolis KEMP. Patient resting eyes closed respirations even.
[2018-11-04 07:00] VITALS: BP 115/66
[2018-11-04] MEDS: tamsulosin 0.4mg capsule PO SCH (08:56)
[2018-11-04] MEDS: multivitamins, therapeutics tablet PO SCH (08:56)
[2018-11-04] MEDS: carvedilol 6.25mg tablet PO SCH ×2 (08:56→20:30)
[2018-11-04] MEDS: magnesium Cl slow-release 64mg tablet PO PRN ×2 (08:56→23:20)
[2018-11-04] MEDS: metolazone 2.5mg tablet PO SCH (08:56)
[2018-11-04] MEDS: folic acid 1mg tablet PO SCH (08:57)
[2018-11-04] MEDS: duloxetine 30mg CAPSULE.DR PO SCH (08:57)
[2018-11-04] MEDS: thiamine 100mg tablet PO SCH (08:57)
[2018-11-04] MEDS: citalopram 20mg tablet PO SCH (08:57)
[2018-11-04] MEDS: gabapentin 100mg capsule PO SCH ×3 (08:58→20:30)
--- NOTE | 2018-11-04 09:00 | NUR ---
Spoke to patient this am about the importance of complying with the fluid restriction ordered by the doctor to prevent him from accumulating too much fluid. Patient verbalized understanding
[2018-11-04 12:00] VITALS: BP 130/69
[2018-11-04 12:26] VITALS: BP 121/70
--- NOTE | 2018-11-04 14:19 | NUR ---
A student nurse working with a patient in A told me that she saw this patient drinking water from the sink's faucet. Patient was told by Dr. Darling during his rounds that we have to comply with the fluid restriction order. GALLO Colin expressed concern that this patient want her to give him coffee. Patient was already told we could not give him extra fluid because he is in fluid restriction, patient was obviously upset about this.
--- NOTE | 2018-11-04 14:28 | NUR ---
GALLO Person told me that patient filled his pitcher liner with water, patient was reminded with fluid restriction. Patient has been resistant to comply with the instruction. Charge nurse Laura aware Addendum: 11/04/18 at 1434 by Lolis Ochoa RN Sent a page message to Dr. Darling about patient drinking water from the sink
--- NOTE | 2018-11-04 14:51 | NUR ---
Wound dressings on bilateral great toes were changed by me and the student nurse Fely. Patient tolerated the procedure
--- NOTE | 2018-11-04 17:00 | NUR ---
reassessment: Pt Po 100% fluid restricted meals meeting needs. carb controlled diet d/c for recurrent lows. LBM 3/. No nutrition concerns at this time. Will continue to monitor. Recommendations: 1) Continue CHO controlled diet with fluid restrict per MD 2) Wt per rx Addendum: 11/04/18 at [address] Amended: Links added.
--- NOTE | 2018-11-04 17:38 | NUR ---
Offered patient a shower cap/shampoo, he declined. BF(student nurse) Addendum: 11/04/18 at 1738 by Fely ROWLAND Amended: Links added.
--- NOTE | 2018-11-04 18:20 | NUR ---
Received report from Lolis KEMP pt is in bed with the blankets covering his face, in no apparent distress, call light and items of freq use within reach.
--- NOTE | 2018-11-04 18:35 | NUR ---
Problems reprioritized. Patient report given, questions answered & plan of care reviewed with Terri KEMP.
[2018-11-04 20:00] VITALS: BP 134/63
[2018-11-04] MEDS: pantoprazole 40mg Tablet.DR PO SCH (20:30)
[2018-11-05] VITALS: BP 138/66
[2018-11-05] MEDS: HYDROmorphone 2mg tablet PO PRN ×5 (03:26→20:54)
[2018-11-05 05:00] LABS: BASOPHILS % (AUTO) 0.7 % (0-1); EOSINOPHILS # (AUTO) 0.1 X10'3 (0-0.9); EOSINOPHILS % (AUTO) 2.1 % (0-6); HEMATOCRIT 24.6 % (42.0-52.0); HEMOGLOBIN 8.2 g/dl (14.0-17.9); LYMPHOCYTES # (AUTO) 0.8 X10'3 (1.1-4.8); LYMPHOCYTES % (AUTO) 16.5 % (21-51); MEAN CORPUSCULAR HGB CONC 33.6 g/dL (33.0-36.5); MEAN CORPUSCULAR VOLUME 86.4 FL (78-98); MEAN PLATELET VOLUME 6.7 FL (7.4-10.4); MONOCYTES # (AUTO) 0.6 X10'3 (0-0.9); NEUTROPHILS # (AUTO) 3.4 X10'3 (1.8-7.7); NEUTROPHILS % (AUTO) 68.7 % (42-75); PLATELET COUNT 221 X10'3 (140-440); RED BLOOD COUNT 2.84 X10'6 (4.70-6.10); RED CELL DISTRIBUTION WIDTH 16.4 % (11.5-14.5); WHITE BLOOD COUNT 4.9 X10'3 (4.5-11.0)
[2018-11-05 05:07] LABS: INR 1.3 INR; PARTIAL THROMBOPLASTIN TIME 32 SECONDS (22-32); PROTHROMBIN TIME 12.7 SECONDS (9.0-12.0)
[2018-11-05 05:18] LABS: ALANINE AMINOTRANSFERASE 8 U/L (12-78); ALBUMIN 1.9 G/DL (3.4-5.0); ALBUMIN/GLOBULIN RATIO 0.3 (1.1-1.5); ALKALINE PHOSPHATASE 140 IU/L (46-116); ANION GAP 4 (8-16); ASPARTATE AMINO TRANSFERASE 12 U/L (10-37); BILIRUBIN,TOTAL 0.3 MG/DL (0.1-1.0); BLOOD UREA NITROGEN 32 MG/DL (7-18); BUN/CREATININE RATIO 19.4 (5.4-32.0); CALCIUM 8.1 MG/DL (8.5-10.1); CHLORIDE 100 MMOL/L (99-107); CREATININE 1.65 MG/DL (0.60-1.10); GLUCOSE 168 MG/DL (70-104); MAGNESIUM 1.3 MG/DL (1.5-2.4); PHOSPHORUS 3.9 MG/DL (2.3-4.5); POTASSIUM 4.4 MMOL/L (3.5-5.1); SODIUM 133 MMOL/L (135-145); TOTAL CARBON DIOXIDE 29.2 MMOL/L (24-32); TOTAL PROTEIN 7.5 G/DL (6.4-8.2); eGFR 45 ML/MIN
--- NOTE | 2018-11-05 06:37 | NUR ---
Gave report to Natty KEMP pt is resting on RA in no apparent distress, FWW next to bed
[2018-11-05 07:00] VITALS: BP 140/72
--- NOTE | 2018-11-05 07:05 | NUR ---
Patient in room [facility]. I have received report from Allison KEMP and had the opportunity to ask questions and assume patient care.
[2018-11-05] MEDS: duloxetine 30mg CAPSULE.DR PO SCH (07:54)
[2018-11-05] MEDS: metolazone 2.5mg tablet PO SCH (07:54)
[2018-11-05] MEDS: carvedilol 6.25mg tablet PO SCH ×2 (07:55→20:32)
[2018-11-05] MEDS: folic acid 1mg tablet PO SCH (07:55)
[2018-11-05] MEDS: tamsulosin 0.4mg capsule PO SCH (07:55)
[2018-11-05] MEDS: thiamine 100mg tablet PO SCH (07:56)
[2018-11-05] MEDS: citalopram 20mg tablet PO SCH (07:56)
[2018-11-05] MEDS: gabapentin 100mg capsule PO SCH ×3 (07:57→20:32)
[2018-11-05] MEDS: pantoprazole 40mg Tablet.DR PO SCH ×2 (07:57→20:32)
[2018-11-05] MEDS: multivitamins, therapeutics tablet PO SCH (07:57)
[2018-11-05] MEDS ORDERED: magnesium 2GM in 50ml NS 50 ML IV ONE (10:45)
[2018-11-05 11:00] VITALS: BP 136/70
[2018-11-05] MEDS: LIDOcaine 5% patch TP SCH (11:03)
[2018-11-05 18:00] VITALS: BP 124/64
--- NOTE | 2018-11-05 18:30 | NUR ---
Patient in room [facility]. I have received report from Natty KEMP and had the opportunity to ask questions and assume patient care.
[2018-11-05 23:54] VITALS: BP 105/66
[2018-11-06] MEDS: HYDROmorphone 2mg tablet PO PRN ×5 (01:56→23:34)
[2018-11-06 02:19] LABS: BASOPHILS % (AUTO) 0.8 % (0-1); EOSINOPHILS # (AUTO) 0.1 X10'3 (0-0.9); EOSINOPHILS % (AUTO) 1.8 % (0-6); HEMATOCRIT 23.3 % (42.0-52.0); HEMOGLOBIN 7.9 g/dl (14.0-17.9); LYMPHOCYTES # (AUTO) 0.8 X10'3 (1.1-4.8); LYMPHOCYTES % (AUTO) 17.3 % (21-51); MEAN CORPUSCULAR VOLUME 85.3 FL (78-98); MEAN PLATELET VOLUME 6.8 FL (7.4-10.4); MONOCYTES # (AUTO) 0.5 X10'3 (0-0.9); MONOCYTES % (AUTO) 11.7 % (2-12); NEUTROPHILS # (AUTO) 3.2 X10'3 (1.8-7.7); NEUTROPHILS % (AUTO) 68.4 % (42-75); PLATELET COUNT 228 X10'3 (140-440); RED BLOOD COUNT 2.73 X10'6 (4.70-6.10); RED CELL DISTRIBUTION WIDTH 16.8 % (11.5-14.5); WHITE BLOOD COUNT 4.7 X10'3 (4.5-11.0)
[2018-11-06 02:28] LABS: ALANINE AMINOTRANSFERASE 9 U/L (12-78); ALBUMIN 1.9 G/DL (3.4-5.0); ALBUMIN/GLOBULIN RATIO 0.3 (1.1-1.5); ALKALINE PHOSPHATASE 145 IU/L (46-116); ANION GAP 5 (8-16); ASPARTATE AMINO TRANSFERASE 12 U/L (10-37); BILIRUBIN,TOTAL 0.3 MG/DL (0.1-1.0); BLOOD UREA NITROGEN 31 MG/DL (7-18); BUN/CREATININE RATIO 17.4 (5.4-32.0); CALCIUM 8.2 MG/DL (8.5-10.1); CHLORIDE 100 MMOL/L (99-107); CREATININE 1.78 MG/DL (0.60-1.10); GLUCOSE 129 MG/DL (70-104); MAGNESIUM 1.6 MG/DL (1.5-2.4); POTASSIUM 4.7 MMOL/L (3.5-5.1); SODIUM 133 MMOL/L (135-145); TOTAL CARBON DIOXIDE 28.2 MMOL/L (24-32); TOTAL PROTEIN 7.6 G/DL (6.4-8.2); eGFR 42 ML/MIN
[2018-11-06 02:35] LABS: INR 1.2 INR; PARTIAL THROMBOPLASTIN TIME 30 SECONDS (22-32); PROTHROMBIN TIME 12.3 SECONDS (9.0-12.0)
--- NOTE | 2018-11-06 06:57 | NUR ---
Problems reprioritized. Patient report given, questions answered & plan of care reviewed with Lolis KEMP.
[2018-11-06 07:00] VITALS: BP 131/64
[2018-11-06] MEDS: carvedilol 6.25mg tablet PO SCH ×2 (07:39→19:28)
[2018-11-06] MEDS: folic acid 1mg tablet PO SCH (07:39)
[2018-11-06] MEDS: gabapentin 100mg capsule PO SCH ×3 (07:39→22:47)
[2018-11-06] MEDS: pantoprazole 40mg Tablet.DR PO SCH ×2 (07:39→19:28)
[2018-11-06] MEDS: LIDOcaine 5% patch TP SCH (07:39)
[2018-11-06] MEDS: citalopram 20mg tablet PO SCH (07:39)
[2018-11-06] MEDS: duloxetine 30mg CAPSULE.DR PO SCH (07:39)
[2018-11-06] MEDS: multivitamins, therapeutics tablet PO SCH (07:40)
[2018-11-06] MEDS: tamsulosin 0.4mg capsule PO SCH (07:40)
[2018-11-06] MEDS: thiamine 100mg tablet PO SCH (07:40)
[2018-11-06] MEDS: metolazone 2.5mg tablet PO SCH (09:24)
[2018-11-06 11:00] VITALS: BP 132/68
--- NOTE | 2018-11-06 15:04 | NUR ---
Bilateral great toe dressing changed, tolerated well. Right upper arm PICC line dressing changed today, tolerated well
[2018-11-06 18:00] VITALS: BP 129/66
--- NOTE | 2018-11-06 18:30 | NUR ---
Patient in room [facility]. I have received report from Lolis KEMP and had the opportunity to ask questions and assume patient care.
--- NOTE | 2018-11-06 18:34 | NUR ---
Problems reprioritized. Patient report given, questions answered & plan of care reviewed with Mayco KEMP.
[2018-11-07] VITALS: BP 126/57
[2018-11-07] MEDS: HYDROmorphone 2mg tablet PO PRN ×5 (03:45→23:20)
[2018-11-07 04:03] LABS: BASOPHILS % (AUTO) 0.8 % (0-1); EOSINOPHILS # (AUTO) 0.1 X10'3 (0-0.9); EOSINOPHILS % (AUTO) 1.4 % (0-6); HEMOGLOBIN 7.3 g/dl (14.0-17.9); LYMPHOCYTES # (AUTO) 0.8 X10'3 (1.1-4.8); LYMPHOCYTES % (AUTO) 18.8 % (21-51); MEAN CORPUSCULAR HEMOGLOBIN 28.5 PG (27.0-31.0); MEAN CORPUSCULAR HGB CONC 33.4 g/dL (33.0-36.5); MEAN CORPUSCULAR VOLUME 85.2 FL (78-98); MEAN PLATELET VOLUME 6.9 FL (7.4-10.4); MONOCYTES # (AUTO) 0.5 X10'3 (0-0.9); PLATELET COUNT 221 X10'3 (140-440); RED BLOOD COUNT 2.58 X10'6 (4.70-6.10); RED CELL DISTRIBUTION WIDTH 16.9 % (11.5-14.5); WHITE BLOOD COUNT 4.5 X10'3 (4.5-11.0)
[2018-11-07 04:05] LABS: ALANINE AMINOTRANSFERASE 9 U/L (12-78); ALBUMIN 1.8 G/DL (3.4-5.0); ALBUMIN/GLOBULIN RATIO 0.3 (1.1-1.5); ALKALINE PHOSPHATASE 123 IU/L (46-116); ANION GAP 7 (8-16); ASPARTATE AMINO TRANSFERASE 13 U/L (10-37); BILIRUBIN,TOTAL 0.4 MG/DL (0.1-1.0); BLOOD UREA NITROGEN 33 MG/DL (7-18); BUN/CREATININE RATIO 18.3 (5.4-32.0); CALCIUM 8.2 MG/DL (8.5-10.1); CHLORIDE 98 MMOL/L (99-107); GLUCOSE 140 MG/DL (70-104); MAGNESIUM 1.4 MG/DL (1.5-2.4); PHOSPHORUS 3.6 MG/DL (2.3-4.5); POTASSIUM 4.4 MMOL/L (3.5-5.1); SODIUM 132 MMOL/L (135-145); TOTAL CARBON DIOXIDE 27.4 MMOL/L (24-32); TOTAL PROTEIN 7.2 G/DL (6.4-8.2); eGFR 41 ML/MIN
[2018-11-07 04:16] LABS: INR 1.3 INR; PROTHROMBIN TIME 13.3 SECONDS (9.0-12.0)
[2018-11-07 04:17] LABS: PARTIAL THROMBOPLASTIN TIME 30 SECONDS (22-32)
--- NOTE | 2018-11-07 06:33 | NUR ---
Problems reprioritized. Patient report given, questions answered & plan of care reviewed with Odalis KEMP.
[2018-11-07 07:10] VITALS: BP 120/61
[2018-11-07] MEDS: metolazone 2.5mg tablet PO SCH (07:55)
[2018-11-07] MEDS: LIDOcaine 5% patch TP SCH (07:55)
[2018-11-07] MEDS: thiamine 100mg tablet PO SCH (07:55)
[2018-11-07] MEDS: pantoprazole 40mg Tablet.DR PO SCH ×2 (07:55→20:00)
[2018-11-07] MEDS: multivitamins, therapeutics tablet PO SCH (07:55)
[2018-11-07] MEDS: duloxetine 30mg CAPSULE.DR PO SCH (07:55)
[2018-11-07] MEDS: citalopram 20mg tablet PO SCH (07:55)
[2018-11-07] MEDS: tamsulosin 0.4mg capsule PO SCH (07:55)
[2018-11-07] MEDS: folic acid 1mg tablet PO SCH (07:55)
[2018-11-07] MEDS: carvedilol 6.25mg tablet PO SCH ×2 (07:55→20:00)
[2018-11-07] MEDS: gabapentin 100mg capsule PO SCH ×3 (07:55→20:00)
[2018-11-07] MEDS ORDERED: potassium Cl 20 mEq SR tablet PO PRN ×2 (08:55)
[2018-11-07] MEDS ORDERED: magnesium 2GM in 50ml NS 50 ML IV PRN (08:55)
[2018-11-07] MEDS ORDERED: potassium Cl 40MEQ/NS 500ml 500 ML IV PRN ×2 (08:55)
[2018-11-07] MEDS ORDERED: magnesium 4gm in 100ml NS 100 ML IV PRN (08:55)
[2018-11-07] MEDS: magnesium Cl slow-release 64mg tablet PO PRN ×2 (10:54→23:20)
[2018-11-07 11:11] VITALS: BP 100/58
--- NOTE | 2018-11-07 18:19 | NUR ---
Problems reprioritized. Patient report given, questions answered & plan of care reviewed with VIRIDIANA JOHNSON.
--- NOTE | 2018-11-07 18:30 | NUR ---
Patient in room [facility]. I have received report from ED KEMP and had the opportunity to ask questions and assume patient care.
[2018-11-07 19:00] VITALS: BP 111/42
[2018-11-07 23:38] VITALS: BP 105/59
[2018-11-08] MEDS: HYDROmorphone 2mg tablet PO PRN ×4 (04:05→19:19)
[2018-11-08 04:35] LABS: BASOPHILS % (AUTO) 0.9 % (0-1); EOSINOPHILS # (AUTO) 0.1 X10'3 (0-0.9); HEMATOCRIT 22.7 % (42.0-52.0); HEMOGLOBIN 7.6 g/dl (14.0-17.9); LYMPHOCYTES # (AUTO) 0.8 X10'3 (1.1-4.8); LYMPHOCYTES % (AUTO) 15.1 % (21-51); MEAN CORPUSCULAR HEMOGLOBIN 28.7 PG (27.0-31.0); MEAN CORPUSCULAR HGB CONC 33.7 g/dL (33.0-36.5); MEAN PLATELET VOLUME 6.8 FL (7.4-10.4); MONOCYTES # (AUTO) 0.6 X10'3 (0-0.9); MONOCYTES % (AUTO) 10.8 % (2-12); NEUTROPHILS # (AUTO) 3.7 X10'3 (1.8-7.7); NEUTROPHILS % (AUTO) 71.2 % (42-75); PLATELET COUNT 240 X10'3 (140-440); RED BLOOD COUNT 2.67 X10'6 (4.70-6.10); RED CELL DISTRIBUTION WIDTH 16.7 % (11.5-14.5); WHITE BLOOD COUNT 5.3 X10'3 (4.5-11.0)
[2018-11-08 04:50] LABS: INR 1.3 INR; PROTHROMBIN TIME 12.7 SECONDS (9.0-12.0)
[2018-11-08 04:51] LABS: ALANINE AMINOTRANSFERASE 11 U/L (12-78); ALBUMIN 1.9 G/DL (3.4-5.0); ALBUMIN/GLOBULIN RATIO 0.3 (1.1-1.5); ALKALINE PHOSPHATASE 132 IU/L (46-116); ANION GAP 5 (8-16); ASPARTATE AMINO TRANSFERASE 15 U/L (10-37); BILIRUBIN,TOTAL 0.4 MG/DL (0.1-1.0); BLOOD UREA NITROGEN 36 MG/DL (7-18); BUN/CREATININE RATIO 18.7 (5.4-32.0); CALCIUM 8.5 MG/DL (8.5-10.1); CHLORIDE 98 MMOL/L (99-107); CREATININE 1.93 MG/DL (0.60-1.10); GLUCOSE 147 MG/DL (70-104); MAGNESIUM 1.5 MG/DL (1.5-2.4); PARTIAL THROMBOPLASTIN TIME 31 SECONDS (22-32); PHOSPHORUS 4.1 MG/DL (2.3-4.5); POTASSIUM 4.5 MMOL/L (3.5-5.1); SODIUM 130 MMOL/L (135-145); TOTAL CARBON DIOXIDE 27.5 MMOL/L (24-32); TOTAL PROTEIN 7.8 G/DL (6.4-8.2); eGFR 38 ML/MIN
--- NOTE | 2018-11-08 06:13 | NUR ---
Problems reprioritized. Patient report given, questions answered & plan of care reviewed with ED KEMP.
[2018-11-08 07:35] VITALS: BP 119/62
[2018-11-08] MEDS: multivitamins, therapeutics tablet PO SCH (08:24)
[2018-11-08] MEDS: tamsulosin 0.4mg capsule PO SCH (08:24)
[2018-11-08] MEDS: folic acid 1mg tablet PO SCH (08:24)
[2018-11-08] MEDS: thiamine 100mg tablet PO SCH (08:24)
[2018-11-08] MEDS: gabapentin 100mg capsule PO SCH ×3 (08:24→20:42)
[2018-11-08] MEDS: citalopram 20mg tablet PO SCH (08:24)
[2018-11-08] MEDS: pantoprazole 40mg Tablet.DR PO SCH ×2 (08:25→20:42)
[2018-11-08] MEDS: duloxetine 30mg CAPSULE.DR PO SCH (08:25)
[2018-11-08] MEDS: carvedilol 6.25mg tablet PO SCH ×2 (08:25→20:42)
[2018-11-08] MEDS: LIDOcaine 5% patch TP SCH (08:25)
[2018-11-08] MEDS: metolazone 2.5mg tablet PO SCH (08:25)
[2018-11-08 11:44] VITALS: BP 124/65
--- NOTE | 2018-11-08 12:52 | NUR ---
wound pictures taken, dressing changed. no drainage, no complaints.
--- NOTE | 2018-11-08 18:28 | NUR ---
Problems reprioritized. Patient report given, questions answered & plan of care reviewed with VIRIDIANA Jefferson.
[2018-11-08 20:00] VITALS: BP 161/68
[2018-11-09] VITALS (9 sets, daily range): BP systolic 107–129; BP diastolic 60–69
[2018-11-09] MEDS: HYDROmorphone 2mg tablet PO PRN ×4 (01:21→20:09)
[2018-11-09] MEDS ORDERED: HYDROmorphone 1 mg/ml syringe IV PRN (03:00)
--- NOTE | 2018-11-09 03:02 | NUR ---
Patient crying out in pain, states 06/10. notified, new orders received. Advised pt the importance of using urinal for strict output measurement. States he had a large void earlier in the shift. Two other voids were in the urinal and measurable. Observed pt walking to bathroom. Pt limping on right leg stating a knee replacement is needed. Advised pt to call anytime getting out of bed as he should not be ad areli. Using bed and countertops to ambulate.
[2018-11-09 06:34] LABS: BASOPHILS # (AUTO) 0.1 X10'3 (0-0.2); BASOPHILS % (AUTO) 1.3 % (0-1); EOSINOPHILS # (AUTO) 0.1 X10'3 (0-0.9); EOSINOPHILS % (AUTO) 1.5 % (0-6); HEMOGLOBIN 7.3 g/dl (14.0-17.9); LYMPHOCYTES # (AUTO) 0.8 X10'3 (1.1-4.8); LYMPHOCYTES % (AUTO) 16.1 % (21-51); MEAN CORPUSCULAR HEMOGLOBIN 28.6 PG (27.0-31.0); MEAN PLATELET VOLUME 7.4 FL (7.4-10.4); MONOCYTES # (AUTO) 0.6 X10'3 (0-0.9); MONOCYTES % (AUTO) 11.3 % (2-12); NEUTROPHILS # (AUTO) 3.7 X10'3 (1.8-7.7); NEUTROPHILS % (AUTO) 69.8 % (42-75); PLATELET COUNT 232 X10'3 (140-440); RED BLOOD COUNT 2.54 X10'6 (4.70-6.10); RED CELL DISTRIBUTION WIDTH 16.9 % (11.5-14.5); WHITE BLOOD COUNT 5.3 X10'3 (4.5-11.0)
[2018-11-09 06:38] LABS: HEMATOCRIT 21.3 % (42.0-52.0)
[2018-11-09 06:45] LABS: ALANINE AMINOTRANSFERASE 10 U/L (12-78); ALBUMIN 1.8 G/DL (3.4-5.0); ALBUMIN/GLOBULIN RATIO 0.3 (1.1-1.5); ALKALINE PHOSPHATASE 119 IU/L (46-116); ANION GAP 6 (8-16); ASPARTATE AMINO TRANSFERASE 16 U/L (10-37); BILIRUBIN,TOTAL 0.3 MG/DL (0.1-1.0); BLOOD UREA NITROGEN 38 MG/DL (7-18); CALCIUM 8.5 MG/DL (8.5-10.1); CHLORIDE 97 MMOL/L (99-107); GLUCOSE 127 MG/DL (70-104); MAGNESIUM 1.3 MG/DL (1.5-2.4); PHOSPHORUS 3.7 MG/DL (2.3-4.5); POTASSIUM 4.5 MMOL/L (3.5-5.1); SODIUM 131 MMOL/L (135-145); TOTAL CARBON DIOXIDE 28.1 MMOL/L (24-32); TOTAL PROTEIN 7.5 G/DL (6.4-8.2); eGFR 39 ML/MIN
--- NOTE | 2018-11-09 06:49 | NUR ---
Problems reprioritized. Patient report given, questions answered & plan of care reviewed with VIRIDIANA Brito.
[2018-11-09 06:53] LABS: INR 1.3 INR; PARTIAL THROMBOPLASTIN TIME 32 SECONDS (22-32); PROTHROMBIN TIME 13.1 SECONDS (9.0-12.0)
[2018-11-09] MEDS: magnesium Cl slow-release 64mg tablet PO PRN ×2 (07:33→20:09)
[2018-11-09] MEDS: LIDOcaine 5% patch TP SCH (07:33)
[2018-11-09] MEDS: citalopram 20mg tablet PO SCH (07:33)
[2018-11-09] MEDS: carvedilol 6.25mg tablet PO SCH ×2 (07:34→20:08)
[2018-11-09] MEDS: duloxetine 30mg CAPSULE.DR PO SCH (07:34)
[2018-11-09] MEDS: tamsulosin 0.4mg capsule PO SCH (07:34)
[2018-11-09] MEDS: pantoprazole 40mg Tablet.DR PO SCH ×2 (07:35→20:08)
[2018-11-09] MEDS: thiamine 100mg tablet PO SCH (07:35)
[2018-11-09] MEDS: multivitamins, therapeutics tablet PO SCH (07:35)
[2018-11-09] MEDS: gabapentin 100mg capsule PO SCH ×3 (07:35→20:08)
[2018-11-09] MEDS: folic acid 1mg tablet PO SCH (07:35)
[2018-11-09] MEDS: metolazone 2.5mg tablet PO SCH (07:36)
--- NOTE | 2018-11-09 08:00 | NUR ---
Message sent to Dr Cooper ovalles critcal AM hematocrit. Also let her know about pain issues.
--- NOTE | 2018-11-09 08:06 | NUR ---
Dr Gamboa aware of hct. no trasfusions unless hgb is under 7. She also has had me DC the IV dilaudid added last night.
[2018-11-09] MEDS ORDERED: PANT40TA4 PO (14:27)
--- NOTE | 2018-11-09 19:15 | NUR ---
Pain meds have been DC'd by DR Gamboa, discharge written. Per Dr Gamboa/Case mgt patient will not be transferred to [facility], instead will be discharged. Pt wanted to go AMA when he found out pain meds were dc'd and DR Gamboa will not write a script for pain meds. He decided to stay until blood transfusion is done so he can get a free cab ride to [facility] although he says he will not sign the discharge paperwork. He was given an option to stay tonight due to possible difficulty accessing money but says without pain meds there is not reason for him to stay in the hospital, "he might as well be at a motel". Report has been handed off to Li KEMP, who will finish blood and work on discharging patient. [facility] [address] has been called and they have plenty of beds available at the time being. Pt tolerated blood well so far, no issues. Blood Warmer used.
[2018-11-10] MEDS: HYDROmorphone 2mg tablet PO PRN ×2 (01:59→05:54)
--- NOTE | 2018-11-10 06:10 | NUR ---
PICC removed, pt tolerated well.
--- NOTE | 2018-11-10 06:15 | NUR ---
Patient in room [facility]. I have received report from VIRIDIANA Jefferson and had the opportunity to ask questions and assume patient care. Patient wanting to go downstairs. PICC line being D/C'd. Call light and items of frequent use in reach of patient.
--- NOTE | 2018-11-10 06:30 | NUR ---
Problems reprioritized. Patient report given, questions answered & plan of care reviewed with VIRIDIANA Hilton.
[2018-11-10 07:18] VITALS: BP 113/50
--- NOTE | 2018-11-10 09:29 | NUR ---
Patient discharged and plans to check into a motel. Patient taken from unit via wheelchair with x1 staff. Patient morning medications held because patient was discharged since yesterday. PICC removed by NOC shift. No bleeding or drainage at site at time of discharge. Wound pictures done on discharge and wound care provided at that time. Patient given discharge instructions and was provided time for questions and answers. Patient stated an understanding of all discharge instructions. Patient plans to make a follow up appointment. Patient discharged after eating breakfast and was given a sack lunch to take with him. Patient provided a long sleeve shirt and jacket to leave with. Patient given prescription medication from [facility] and took with him at discharge. Patient provided community resources regarding the [facility] van, food resources, housing resources, financial resources, transportation services, medical assistance, and drug and alcohol rehab services. Patient was given two bus passes to use for transportation.
== END 2018-11-10 09:15 | disposition home or self-care (01) | DRG 197 ==
LOC: ER 04:41 → ED HOLD 07:03 → EDBEDREQ 08:44 → ICU 2S 14:47 → SUR 3N 11-01 12:50
PROVIDERS: ADMIT Internal Medicine Critical Care Medicine; ATTEND Internal Medicine
PROC: 0W3P8ZZ Control Bleeding in Gastrointestinal Tract, Via Natural or Artificial Opening Endoscopic (ICD-10-PCS; principal; 2018-10-26)
PROC: 30233N1 Transfusion of Nonautologous Red Blood Cells into Peripheral Vein, Percutaneous Approach (ICD-10-PCS; 2018-10-26)
PROC: 30233N1 Transfusion of Nonautologous Red Blood Cells into Peripheral Vein, Percutaneous Approach (ICD-10-PCS; 2018-10-27)
PROC: 30233N1 Transfusion of Nonautologous Red Blood Cells into Peripheral Vein, Percutaneous Approach (ICD-10-PCS; 2018-10-28)
PROC: 30233N1 Transfusion of Nonautologous Red Blood Cells into Peripheral Vein, Percutaneous Approach (ICD-10-PCS; 2018-10-30)
PROC: 30233N1 Transfusion of Nonautologous Red Blood Cells into Peripheral Vein, Percutaneous Approach (ICD-10-PCS; 2018-11-09)
DX: I86.4 Gastric varices (principal); E11.22 Type 2 diabetes mellitus with diabetic chronic kidney disease; E11.42 Type 2 diabetes mellitus with diabetic polyneuropathy; D62 Acute posthemorrhagic anemia; E11.65 Type 2 diabetes mellitus with hyperglycemia; E87.1 Hypo-osmolality and hyponatremia; K76.6 Portal hypertension; K70.30 Alcoholic cirrhosis of liver without ascites; N18.9 Chronic kidney disease, unspecified; E78.00 Pure hypercholesterolemia, unspecified; E78.5 Hyperlipidemia, unspecified; E87.0 Hyperosmolality and hypernatremia; E87.5 Hyperkalemia; I12.9 Hypertensive chronic kidney disease with stage 1 through stage 4 chronic kidney disease, or unspecified chronic kidney disease; I25.10 Atherosclerotic heart disease of native coronary artery without angina pectoris; Z96.652 Presence of left artificial knee joint; F15.90 Other stimulant use, unspecified, uncomplicated; Z60.2 Problems related to living alone; F32.9 Major depressive disorder, single episode, unspecified; F41.9 Anxiety disorder, unspecified; M54.9 Dorsalgia, unspecified; F10.129 Alcohol abuse with intoxication, unspecified; G89.29 Other chronic pain; Y90.8 Blood alcohol level of 240 mg/100 ml or more; Z87.11 Personal history of peptic ulcer disease; I25.2 Old myocardial infarction; Z56.0 Unemployment, unspecified; Z59.0 Homelessness; Z79.899 Other long term (current) drug therapy; Z98.0 Intestinal bypass and anastomosis status
CPT/HCPCS: 36415; 36573; 71045; 76937; 80048; 80053; 80305; 80320; 81001; 82140; 82150; 82948; 83036; 83605; 83690; 83735; 83935; 84100; 84300; 85025; 85027; 85610; 85730; 86870; 86880; 86885; 86900; 86901; 86902; 86905; 86920; 86922; 87070; 93005; 93975; 96361; 96365; 96375; 97110; 97116; 97162; 97530; 99152; 99291; A4620; C9113; G0378; J1170; J1815; J1940; J2060; J2250; J2270; J2354; J2405; J3010; J3411; J3475; J3490; J7030; J7060; P9016; P9047

== ENCOUNTER 2018-11-12 10:24 | Emergency (ER) | payer MEDICAID ==
[~2018-11-12] VITALS: Ht 175.3 cm; Wt 77.3 kg
[~2018-11-12 10:24] MED LIST changes: +ALBU2.5V10; +GABA-530 PO; -GABA600T13 PO; +INSU100I31 SUBCUT; +INSU100I39; +METO5TAB7 PO; -SENN-145 PO; -ZAR2.5T PO
[2018-11-12] MEDS ORDERED: traMADol 50MG tablet PO ONE (11:30)
[2018-11-12] MEDS ORDERED: CYCL-1 PO (12:18)
--- NOTE | 2018-11-12 12:30 | NUR ---
WHILE BREAKING PRIMARY RN FOR LUNCH, WENT INTO PATIENT'S ROOM TO WALK HIM AGAIN. PATIENT STATED "I CANT WALK. I NEED TO STAY IN THE HOSPITAL FOR A COUPLE OF DAYS AND GET BETTER." I ASKED PATIENT HOW HE GOT HERE AND HE STATED "THE AMBULANCE". PATIENT STATED THAT HE "WALKED OUT OF HIS ROOM" FOR THE AMBULANCE. WHEN I ASKED HIM WHERE HE CAME FROM HE STATED "[facility]". I OFFERED HIM A CAB RIDE TO [facility], AND PATIENT STATED THAT HE DID NOT WANT TO GO TO [facility]. I ASKED HIM WHERE HE WOULD LIKE TO GO SO I COULD PROVIDE HIM A SAFE DISCHARGE. HE DID NOT RESPOND. I ASKED AGAIN AND HE STATED THE [facility] THEY DONT' [facility] TILL 4" PM. I REASSURED HIM THAT THE COVERED AREA [place] THE [place] [facility] [place] [facility] IS AVAILABLE AND THAT IT IS A BEAUTIFUL JESUS DAY. PATIENT HAS WEATHER APPROPRIATE CLOTHING INCLUDING A JACKET.
--- NOTE | 2018-11-12 12:45 | NUR ---
PATIENT INSTRUCTED AND DEMONSTRATED THE PROPER WAY TO GET OOB WITH BACK PAIN. PATIENT OOB NO ASSIST. PATIENT AMBULATED ABOUT 75 FEET WALKING WITH FEET IN A "V" DUE TO "BAD KNEES". PATIENT ASKED TO TAKE HIS HANDS OUT OF HIS POCKETS TO PROVIDE BETTER BALANCE. WHEN DISCUSSED DISCHARGE PLAN AND PATIENT VERBALIZED DISCHARGE PLAN, HE ASKED FOR A WALKER. DISCUSSED WITH MARIPOSA ALAN AND RIGGING SUPERVISOR HOLLIE. CASE MANAGEMENT PAGED FOR WALKER. PATIENT PROVIDED BAG LUNCH, PONCHO (NOT RAINING), AND IS WEARING JEANS, SHIRT, STABLE HIGH TOP SNEAKERS, AND A COAT. PATIENT IS TO WAIT IN THE INTERNAL ER WAITING ROOM: [facility] UNTIL WALKER PROVIDED AND THE HOSPITAL WILL PAY FOR A CAB TO [facility]. PATIENT SITTING IN [facility] WAITING ROOM AT THIS TIME.
[2018-11-12 13:05] VITALS: BP 118/55
--- NOTE | 2018-11-12 13:11 | NUR ---
YE[facility] CAB TO [facility], HOSPITAL PAY
[2018-11-13] MEDS ORDERED: IBUP-1984 PO (15:50)
== END 2018-11-12 13:12 | disposition home or self-care (01) ==
LOC: ER 10:24
DX: S29.012A Strain of muscle and tendon of back wall of thorax, initial encounter (principal); S39.012A Strain of muscle, fascia and tendon of lower back, initial encounter; E11.42 Type 2 diabetes mellitus with diabetic polyneuropathy; I25.10 Atherosclerotic heart disease of native coronary artery without angina pectoris; E78.00 Pure hypercholesterolemia, unspecified; I10 Essential (primary) hypertension; I25.2 Old myocardial infarction; F15.90 Other stimulant use, unspecified, uncomplicated; Z79.4 Long term (current) use of insulin; Z79.899 Other long term (current) drug therapy; Z59.0 Homelessness; Z56.0 Unemployment, unspecified; Z60.2 Problems related to living alone; W10.8XXA Fall (on) (from) other stairs and steps, initial encounter; Y93.89 Activity, other specified; Y92.89 Other specified places as the place of occurrence of the external cause; Y99.8 Other external cause status
CPT/HCPCS: 72100; 99284

== ENCOUNTER 2018-11-13 15:37 | Emergency (ER) | payer MEDICAID ==
[~2018-11-13] VITALS: Ht 177.8 cm; Wt 81.0 kg
[~2018-11-13 15:37] MED LIST changes: +CYCL-1 PO
[2018-11-13 15:40] VITALS: BP 97/55
[2018-11-13] MEDS ORDERED: IBUP-1984 PO (15:50)
== END 2018-11-13 15:59 | disposition home or self-care (01) ==
LOC: ER 15:37
DX: M54.5 Low back pain (principal); E11.42 Type 2 diabetes mellitus with diabetic polyneuropathy; I25.10 Atherosclerotic heart disease of native coronary artery without angina pectoris; E78.00 Pure hypercholesterolemia, unspecified; I10 Essential (primary) hypertension; I25.2 Old myocardial infarction; F15.90 Other stimulant use, unspecified, uncomplicated; Z98.890 Other specified postprocedural states; Z60.2 Problems related to living alone; Z59.0 Homelessness; Z56.0 Unemployment, unspecified; Z79.4 Long term (current) use of insulin; Z79.899 Other long term (current) drug therapy
CPT/HCPCS: 99283